=== PATIENT | female | born 1985 | race Caucasian/White ===

== ENCOUNTER → 2022-03-03 11:47 | Outpatient (CLI) | payer OTHER, SELFPAY ==
--- NOTE | ~2022-03-03 | MM_ITS ---
EXAMINATION: MM screening danny BI w ángel HISTORY: Screening mammogram TECHNIQUE: Craniocaudal and mediolateral oblique 3-D tomosynthesis images were obtained and synthetic 2-D images were generated. CAD analysis was submitted and interpreted. COMPARISON: No prior mammogram is available for comparison at this institution. BREAST PARENCHYMAL COMPOSITION: There are scattered areas of fibroglandular density. FINDINGS: There is no evidence of suspicious mass, calcification, or architectural distortion to sugg est malignancy in either breast. There has been no suspicious interval change. IMPRESSION: 1. No mammographic evidence of malignancy. 2. Recommend routine screening mammography in one year. BI-RADS Category 1: Negative Reviewed, dictated and finalized at location A.
== END ==
PROVIDERS: PCP Internal Medicine; Visit Provider Advanced Practice Midwife
DX: Z12.31 Encounter for screening mammogram for malignant neoplasm of breast (principal)
CPT/HCPCS: 77063; 77067

== ENCOUNTER 2022-09-19 11:39 | Emergency (ER) | payer OTHER, SELFPAY ==
[2022-09-19 11:45] VITALS: BP 115/62; PULSE 72; RESP 14; TEMP 36.6; O2SAT 100
--- NOTE | 2022-09-19 12:05 | ED.URI ---
HPI - URI/Sore Throat General Chief Complaint: Upper Respiratory Infection Stated Complaint: Ear Pain/Sore Throat History of Present Illness HPI Narrative: PATIENT PRESENTS WITH RIGHT EAR PAIN AND SORE THROAT. PATIENT HAS NOT BEEN EVALUATED AT URGENT CARE AND EMERGENCY ROOM AND DIAGNOSED WITH ALLERGIES. PATIENT STATES SHE HAS HAD SOME DRAINAGE FROM THE RIGHT EAR TODAY AND CONTINUES TO HAVE A SORE THROAT. PATIENT IS CURRENTLY ON A MEDROL DOSEPAK TAKE ZYRTEC AND USES FLONASE ON A DAILY FOR HER SYMPTOMS. Related Data Home Medications Medication Instructions Recorded Confirmed albuterol sulfate 90 mcg/actuation 2 puff inhalation Q4-6H PRN 09/19/22 09/19/22 aerosol inhaler Shortness Of Breath buspirone 7.5 mg tablet 7.5 mg PO BID 09/19/22 09/19/22 ivabradine 5 mg tablet (Corlanor) 5 mg PO TID 09/19/22 09/19/22 methylprednisolone 4 mg tablets in 4 mg PO DIRECTED 09/19/22 09/19/22 a dose pack triamcinolone acetonide 0.1 % 1 applic topical DAILY 09/19/22 09/19/22 topical cream Allergies Allergy/AdvReac Type Severity Reaction Status Date / Time cefaclor [From [facility]] Allergy Mild Hives Verified 09/19/22 12:05 Review of Systems Review of Systems: CONSTITUTIONAL: DENIES CHILLS, OR SWEATS. REPORTS FEVER AND GENERALIZED BODY ACHES EYES: DENIES VISUAL CHANGES, REDNESS, OR DISCHARGE. ENT: DENIES OTALGIA. REPORTS NASAL CONGESTION RUNNY NOSE AND SORE THROAT CARDIOVASCULAR: DENIES CHEST PAIN, PALPITATIONS, OR EDEMA. RESPIRATORY: DENIES DYSPNEA. REPORTS OCCASIONAL COUGH GASTROINTESTINAL: DENIES ABDOMINAL PAIN, NAUSEA, VOMITING, OR DIARRHEA. GENITOURINARY: DENIES DYSURIA OR HEMATURIA. SKIN: DENIES RASH OR ITCHING. MUSCULOSKELETAL: DENIES BACK PAIN, JOINT PAIN, OR MYALGIA. REPORTS GENERALIZED BODY ACHES NEUROLOGIC: DENIES HEADACHE, NUMBNESS, OR WEAKNESS. PSYCHIATRIC: DENIES ANXIETY OR DEPRESSION. CRITICAL ACCESS HOSPITAL Comments AT TIME OF SIGNATURE, AGREE WITH NURSING PAST MEDICAL, SURGICAL, SOCIAL AND FAMILY HISTORY. THERE IS NO RELEVANT FAMILY HISTORY PERTINENT TO THE PRESENTING COMPLAINT Exam Narrative: CONSTITUTIONAL: DENIES CHILLS, OR SWEATS. REPORTS FEVER AND GENERALIZED BODY ACHES EYES: DENIES VISUAL CHANGES, REDNESS, OR DISCHARGE. ENT: DENIES OTALGIA. REPORTS NASAL CONGESTION RUNNY NOSE AND SORE THROAT CARDIOVASCULAR: DENIES CHEST PAIN, PALPITATIONS, OR EDEMA. RESPIRATORY: DENIES DYSPNEA. REPORTS OCCASIONAL COUGH GASTROINTESTINAL: DENIES ABDOMINAL PAIN, NAUSEA, VOMITING, OR DIARRHEA. GENITOURINARY: DENIES DYSURIA OR HEMATURIA. SKIN: DENIES RASH OR ITCHING. MUSCULOSKELETAL: DENIES BACK PAIN, JOINT PAIN, OR MYALGIA. REPORTS GENERALIZED BODY ACHES NEUROLOGIC: DENIES HEADACHE, NUMBNESS, OR WEAKNESS. PSYCHIATRIC: DENIES ANXIETY OR DEPRESSION. HENMT: Ears: Abnormal EAC present EAC tenderness and otic discharge clear on the right Course Course Level of Care: Express Care Visit Vital Signs Vital signs: Vital Signs Temperature 36.6 C 09/19/22 11:45 Pulse Rate 72 09/19/22 11:45 Respiratory Rate 14 09/19/22 11:45 Blood Pressure 115/62 09/19/22 11:45 Pulse Oximetry 100 09/19/22 11:45 Oxygen Delivery Room Air 09/19/22 11:45 Temperature 36.6 C 09/19/22 11:45 Pulse Rate 72 09/19/22 11:45 Respiratory Rate 14 09/19/22 11:45 Blood Pressure 115/62 09/19/22 11:45 Pulse Oximetry 100 09/19/22 11:45 Oxygen Delivery Room Air 09/19/22 11:45 MDM - URI/Sore Throat Lab Data Labs: Strep Screen Presumptive Negative *(Reference Range: Negative)* Discharge Plan Discharge Clinical Impression: Upper respiratory infection, Otitis externa Patient Disposition: Home, Self-Care Condition: Stable Instructions: Antibiotic Form, Ofloxacin (Into the ear), Fluid In The Ear (Serous Otitis Media) (ED) Additional Instructions: FINISH MEDROL DOSEPAK PRESCRIBED FROM THE EMERGENCY ROOM CONTINUE ZYRTEC AND FLONASE DAILY USE EAR MARGO
== END 2022-09-19 12:12 | disposition home or self-care (01) ==
PROVIDERS: Emergency Provider Nurse Practitioner Family; PCP Internal Medicine
DX: J06.9 Acute upper respiratory infection, unspecified (principal); H60.91 Unspecified otitis externa, right ear; J45.909 Unspecified asthma, uncomplicated; F41.9 Anxiety disorder, unspecified
CPT/HCPCS: 87081; 87880; 99213; G0463

== ENCOUNTER 2023-05-10 11:11 | Day surgery (SDC) | payer SELFPAY ==
--- NOTE | 2023-05-10 07:24 | WPDANESEPPF ---
Anes - Initial Pre Proc Eval Procedure: Operation Date: 05/10/23 12:30 Proposed Procedures p Esophagogastroduodenoscopy - Kashmir Hassan MD s Colonoscopy - Kashmir Hassan MD Date/Time: 05/10/23 07:24 Surgeon: Kashmir Hassan MD Pre Op Diagnosis: FM HX Malignant Neoplasm of Digestive Organs Patient Data Age: 37 Gender: F Height: 1.7 m Weight: 103.419 kg Allergies Allergy/AdvReac Type Severity Reaction Status Date / Time cefaclor [From [facility]] Allergy Mild Hives Verified 04/20/23 13:41 Home Medications Medication Instructions Recorded Confirmed Type albuterol sulfate 90 mcg/actuation 2 puff inhalation Q4-6H PRN 09/19/22 05/10/23 History aerosol inhaler Shortness Of Breath buspirone 7.5 mg tablet 7.5 mg PO BID 09/19/22 05/10/23 History ivabradine 5 mg tablet (Corlanor) 5 mg PO TID 09/19/22 05/10/23 History triamcinolone acetonide 0.1 % 1 applic topical DAILY 09/19/22 05/10/23 History topical cream montelukast 10 mg tablet 10 mg PO DAILY 04/08/23 05/10/23 History (Singulair) cetirizine 10 mg tablet 10 mg PO BID PRN Allergic Symptoms 04/20/23 05/10/23 History famotidine 20 mg tablet (Pepcid) 20 mg PO BID 04/20/23 05/10/23 History fluticasone fur. 200 mcg-umeclid 1 inh inhalation DIRECTED 04/20/23 05/10/23 History 62.5 mcg-vilant 25 mcg inhalat.powder (Trelegy Ellipta) ubrogepant 100 mg tablet (Ubrelvy) 100 mg PO DIRECTED PRN Migraine 04/20/23 05/10/23 History Headache Patient hx anesthesia problems: none Family hx anesthesia problems: none Results Review: All pre-operative results and documents have been reviewed as part of the pre-operative evaluation. [facility] Past Medical History Medical History (Updated 04/08/23 @ 14:06 by Andree Yañez, MELVI) Asthma Chronic urticaria Dysphagia Family hx of colon cancer Obesity POTS (postural orthostatic tachycardia syndrome) Surgical History Surgical History (Updated 04/08/23 @ 13:59 by Linda Mccartney MA) H/O dilation and curettage Hx of prior ablation treatment Hx of tonsillectomy Social History Social History Smoking status: Never smoker Alcohol use details: very rare, 1 every 3 weeks Substance use type: does not use Spiritual care concerns: No Anes - Eval Final PreProcedure Day of Procedure 05/10/23 07:24 Patient weight: obese Heart: regular rate and rhythm Lungs: clear to auscultation Airway: Mallampati scale class II Neurological: alert and oriented Last oral intake: >/= 8 hours ASA classification: II Emergent: no Anesthetic plan: proceed Anesthesia type and monitoring: general GIVS and standard monitoring Results Review: All pre-operative results and documents have been reviewed as part of the pre-operative evaluation. Informed Consent: The patient's anesthetic plan and its attendant risks and benefits were discussed with the patient/family/POA. Questions were solicited and answers provided to the satisfaction of the patient/family/POA.
[2023-05-10 11:39] VITALS: BP 126/82; RESP 16; TEMP 37.1; O2SAT 99; BMI 34.7
--- NOTE | 2023-05-10 11:52 | PM.HPGS ---
History of Present Illness History of Present Illness Consent: Risks, benefits, and alternatives have been discussed and questions answered. Patient agrees to proceed with procedure. Chief complaint: FM HX Malignant Neoplasm of Digestive Organs Narrative: Ivana Fitzgerald is a 37 year old female with history of allergies on medications, few occasions had difficulty swallowing but she is not taking ppi and never had scopes (mother had colon cancer at 50) Review of Systems Constitutional: Constitutional: Denies headache(s) and Denies weakness Eyes: Eyes: Denies blurry vision ENT: Reports Normal hearing present, Denies headache(s) and Denies neck pain Cardiovascular: Cardiovascular: Denies chest pain and Denies dyspnea Respiratory: Respiratory: Denies dyspnea Gastrointestinal: Gastrointestinal: Reports no additional gastrointestinal complaints Genitourinary: Genitourinary: Denies dysuria Musculoskeletal: Musculoskeletal: Denies neck pain Integumentary/Breasts: Skin/Breast: Denies dry skin Neurologic: Reports Normal hearing present, Denies headache(s) and Denies weakness Psychiatric: Psychiatric: Denies anxiety Endocrine: Endocrine: Denies change in body appearance Hematologic/Lymphatic: Hematologic/Lymphatic: Denies easy bleeding Allergic/Immunologic: Allergic/Immunologic: Reports urticaria PMFSH Past Medical History Medical History (Updated 04/08/23 @ 14:06 by Andree Yañez APRN) Asthma Chronic urticaria Dysphagia Family hx of colon cancer Obesity POTS (postural orthostatic tachycardia syndrome) Surgical History Surgical History (Updated 04/08/23 @ 13:59 by Linda Mccartney MA) H/O dilation and curettage Hx of prior ablation treatment Hx of tonsillectomy Social History Social History Smoking status: Never smoker Alcohol use details: very rare, 1 every 3 weeks Substance use type: does not use Spiritual care concerns: No Meds Home Medications and Allergies Home Medications Medication Instructions Recorded Confirmed Type albuterol sulfate 90 mcg/actuation 2 puff inhalation Q4-6H PRN 09/19/22 04/20/23 History aerosol inhaler Shortness Of Breath buspirone 7.5 mg tablet 7.5 mg PO BID 09/19/22 04/20/23 History ivabradine 5 mg tablet (Corlanor) 5 mg PO TID 09/19/22 04/20/23 History triamcinolone acetonide 0.1 % 1 applic topical DAILY 09/19/22 04/20/23 History topical cream montelukast 10 mg tablet 10 mg PO DAILY 04/08/23 04/20/23 History (Singulair) cetirizine 10 mg tablet 10 mg PO BID PRN Allergic Symptoms 04/20/23 04/20/23 History famotidine 20 mg tablet (Pepcid) 20 mg PO BID 04/20/23 04/20/23 History fluticasone fur. 200 mcg-umeclid 1 inh inhalation DIRECTED 04/20/23 04/20/23 History 62.5 mcg-vilant 25 mcg inhalat.powder (Trelegy Ellipta) ubrogepant 100 mg tablet (Ubrelvy) 100 mg PO DIRECTED PRN Migraine 04/20/23 04/20/23 History Headache Allergies Allergy/AdvReac Type Severity Reaction Status Date / Time cefaclor [From [facility]] Allergy Mild Hives Verified 04/20/23 13:41 Vital Signs Vital Signs - 24 hr 05/10/23 11:39 Temperature 98.7 F Respiratory Rate 16 Blood Pressure 126/82 Pulse Oximetry 99 Oxygen Delivery Room Air Exam Const: General: comfortable and no acute distress HENMT: Face/Nose/Sinus: Normal nares present Eyes: General: appearance normal, both eyes and all related structures Neck: Neck: no JVD Resp: Auscultation: clear to auscultation bilaterally Cardio: Rate: regular rate Rhythm: regular rhythm GI: Inspection: non-distended GI Palp: Yes Soft to palpation Skin: General skin exam: normal color Neuro: General: gait normal Speech: normal speech Extrem: General: normal to inspection Psych: Mental Status: mental status grossly normal Assessment and Plan Assessment and plan (1) Dysphagia: Code(s): R13.10 - Dysphagia, unspecified Status: Acute Assessment and Plan: egd wit
[2023-05-10] MEDS: LACTATED RINGERS 1,000 ML 150 ML IV CONT (11:53)
[2023-05-10 12:27] VITALS: BP 101/64; PULSE 73; RESP 16; O2SAT 98
[2023-05-10 12:37] VITALS: BP 106/82; PULSE 75; RESP 16; O2SAT 100
[2023-05-10 12:47] VITALS: BP 111/72; PULSE 64; RESP 16; O2SAT 100
== END 2023-05-10 13:22 | disposition home or self-care (01) ==
PROVIDERS: PCP Internal Medicine; Visit Provider Internal Medicine Gastroenterology
PROC: 0DJ08ZZ Inspection of Upper Intestinal Tract, Via Natural or Artificial Opening Endoscopic (ICD-10-PCS; CPT 43235; principal; 2023-05-10 12:00)
PROC: 0DJD8ZZ Inspection of Lower Intestinal Tract, Via Natural or Artificial Opening Endoscopic (ICD-10-PCS; CPT 45378; 2023-05-10 12:00)
DX: Z80.0 Family history of malignant neoplasm of digestive organs (principal); R13.19 Other dysphagia
CPT/HCPCS: 45378; 43239

== ENCOUNTER 2023-05-11 10:47 | Outpatient (NON) | payer OTHER, SELFPAY | END 2023-05-11 10:48 | disposition home or self-care (01) | LOC: ANHLAB 10:48 | PROVIDERS: PCP Internal Medicine; Visit Provider Internal Medicine Gastroenterology | DX: K29.50 Unspecified chronic gastritis without bleeding (principal); K20.90 Esophagitis, unspecified without bleeding; Z80.0 Family history of malignant neoplasm of digestive organs | CPT/HCPCS: 88305 ==

== ENCOUNTER 2024-06-20 14:56 | Outpatient (CLI) | payer OTHER, SELFPAY ==
--- NOTE | ~2024-06-20 | MM_ITS ---
EXAMINATION: MM screening danny BI w ángel HISTORY: Screening mammogram TECHNIQUE: Craniocaudal and mediolateral oblique 3-D tomosynthesis images were obtained and synthetic 2-D images were generated. CAD analysis was submitted and interpreted. COMPARISON: 03/03/2022 BREAST PARENCHYMAL COMPOSITION:Not Dense. There are scattered areas of fibroglandular density. FINDINGS: No suspicious mass, calcification, or architectural distortion are identified in either sergey ast to suggest malignancy. There has been no suspicious interval change. IMPRESSION: No mammographic evidence of malignancy. Recommend routine screening mammography in one year. BI-RADS Category 1: Negative Reviewed, dictated and finalized at location . E PATCHER
== END 2024-06-20 14:57 | disposition home or self-care (01) ==
PROVIDERS: PCP Obstetrics & Gynecology; Visit Provider Obstetrics & Gynecology
DX: Z12.31 Encounter for screening mammogram for malignant neoplasm of breast (principal)
CPT/HCPCS: 77063; 77067

== ENCOUNTER 2024-09-25 15:32 | Emergency (ER) | payer OTHER, SELFPAY ==
--- NOTE | ~2024-09-25 | CT_ITS ---
EXAMINATION: CT abdomen pelvis w con DATE: 09/25/2024 17:47 INDICATION: abdominal pain, RUQ TECHNIQUE: Computed tomography (CT) of the abdomen and pelvis was performed with 100 mL Omnipaque-350 intravenous contrast. Automated exposure control and iterative reconstruction technique were employe d. The dose-length product was 1067.32 mGy-cm. COMPARISON: None. FINDINGS: Lower thorax: Unremarkable Liver: Normal. Biliary/Gallbladder: Gallbladder is normal. No bile duct dilation. Pancreas: No mass or duct dilation. Spleen: Normal. Adrenals:No mass. Kidneys: No suspicious mass, obstructing stone, or hydronephrosis. GI tract: No small or large bowel dilation. Uniform bowel wall enhancement. Mild ileal mucosal hypere go and mild distal ileal wall edema. Mild scattered areas of colonic wall edema. Normal appendix. Mesentery/Peritoneum: No ascites, mass, or free air. Retroperitoneum: No mass. Pelvis: Pelvic organs are within normal limits. Soft Tissues: Soft tissues and body wall unremarkable. Bones: No acute osseous finding. IMPRESSION: Mild ileitis and colitis. Reviewed, dictated and finalized at location K. IMPRESSION: Mild ileitis and colitis.
[2024-09-25 16:06] VITALS: BP 129/90; PULSE 102; RESP 18; TEMP 36.6; O2SAT 99
--- NOTE | 2024-09-25 16:10 | ECG_ITS ---
Test Date: 2024-09-25 16:59:53 Measurements Intervals Neal Rate: 93 P: 66 IL: 141 QRS: 76 QRSD: 94 T: 44 QT: 348 QTc: 433 Interpretive Statements SINUS RHYTHM WITH SINUS ARRHYTHMIA INCOMPLETE RIGHT BUNDLE BRANCH BLOCK BASELINE ARTIFACT- I, II, III, AVR, AVL BORDERLINE ECG No previous ECG available for comparison Electronically Signed On 09-25-2024 19:28:34 CDT by Nitesh Kemp D.O.
--- NOTE | 2024-09-25 16:11 | ED_ITS ---
HPI - Nausea/Vomiting/Diarrhea General Chief complaint: Nausea/Vomiting/Diarrhea <Vale Young ORIGINATION SPECIALIST - Last Filed: 09/25/24 16:14> Stated complaint: Has HOWELL-Cramps, N/D-chills <Vale Young ORIGINATION SPECIALIST - Last Filed: 09/25/24 16:14> Time Seen by Provider: 09/25/24 16:05 <Vale Young ORIGINATION SPECIALIST - Last Filed: 09/25/24 16:14> Focused HPI: Patient is 38-year-old female who presents to the ER with complaints of abdominal pain that started yesterday. She reports she has a history of gall bladder attacks and feels is the this episode is similar. Patient describes her abdomen as ?twisting and cramping. She endorses a history anxiety, asthma, seasonal allergies and POTS. Pt endorses significant nausea and vomiting, along with decreased p.o. intake and diarrhea. She denies any urinary symptoms and recent fevers. GENERAL: Well-appearing, well-nourished, and in no acute distress. HEAD: Normocephalic, atraumatic. CHEST: Clear to auscultation. ?No respiratory distress. HEART: Regular rate and rhythm.? NEURO: ?Alert and oriented x3. ABD: Negative Dang's sign, + BS, nontender with palpation Patient screened in triage and initial orders placed.? ?Additional care and disposition to be based upon?diagnostic testing and treatment. <Vale Young APRN - Last Filed: 09/25/24 16:14> Source: patient <Chava Leo PA-C - Last Filed: 09/26/24 02:07> Mode of arrival: ambulatory <Chava Leo PA-C - Last Filed: 09/26/24 02:07> Limitations: no limitations <Chava Leo PA-C - Last Filed: 09/26/24 02:07> History of Present Illness HPI Narrative: Agree with MSE note. Denies GI bleeding symptoms. <Chava Leo PA-C - Last Filed: 09/26/24 02:07> Related Data Home medications: Home Medications ?Medication ?Instructions ?Recorded ?Confirmed ?Last Taken ?Type albuterol sulfate 90 mcg/actuation 2 puff inhalation Q4-6H PRN 09/19/22 09/25/24 04/17/23 History aerosol inhaler Shortness Of Breath buspirone 7.5 mg tablet 15 mg PO BID 09/19/22 09/25/24 04/20/23 History ivabradine 5 mg tablet (Corlanor) 5 mg PO TID 09/19/22 09/25/24 04/20/23 History triamcinolone acetonide 0.1 % 1 applic topical DAILY 09/19/22 09/25/24 Unknown History topical cream montelukast 10 mg tablet 10 mg PO DAILY 04/08/23 09/25/24 Unknown History (Singulair) cetirizine 10 mg tablet 10 mg PO BID PRN Allergic Symptoms 04/20/23 09/25/24 04/20/23 History famotidine 20 mg tablet (Pepcid) 20 mg PO BID 04/20/23 09/25/24 04/20/23 History fluticasone fur. 200 mcg-umeclid 1 inh inhalation DIRECTED 04/20/23 09/25/24 04/20/23 History 62.5 mcg-vilant 25 mcg inhalat.powder (Trelegy Ellipta) ubrogepant 100 mg tablet (Ubrelvy) 100 mg PO DIRECTED PRN Migraine 04/20/23 09/25/24 Unknown History Headache olopatadine 0.6 % nasal spray 2 spray intranasal BID PRN Allergy 09/25/24 09/25/24 Unknown History omalizumab 150 mg/mL subcutaneous 150 mg subcut MONTHLY 09/25/24 09/25/24 Unknown History syringe (Xolair) <Vale Young, MELVI - Last Filed: 09/25/24 16:14> Allergies/Adverse reactions: Allergies Allergy/AdvReac Type Severity Reaction Status Date / Time cefaclor (From [facility]) Allergy Mild Hives Verified 09/25/24 17:51 <Vale Young APRN - Last Filed: 09/25/24 16:14> Review of Systems 2 Review of Systems: All systems as dictated in HPI <Chava Leo PA-C - Last Filed: 09/26/24 02:07> PMFSH Past Medical History Medical History: Medical History (Updated 09/26/24 @ 00:22 by Shahnaz Blanca) Asthma POTS (postural orthostatic tachycardia syndrome) Chronic urticaria Obesity Family hx of colon cancer Dysphagia <Vale Young APRN - Last Filed: 09/25/24 16:14> Surgical History Surgical History: Surgical History (Updated 04/08/23 @ 13:59 by Linda Mccartney MA) Hx of tonsillectomy H/O dilation and curettage Hx of prior ablation treatment <Vale Young, ORIGINATION SPECIALIST - Last Filed: 09/25/24 16:14> Social History Social History: Social History Smoking status: Never smoker Alcohol use details: very rare, 1 every 3 weeks Substance use type: does not use Spiritual care concerns: No <Vale Young, ORIGINATION SPECIALIST - Last Filed: 09/25/24 16:14> Exam 2 Narrative: GENERAL: Well-appearing, well-nourished, and in no acute distress. HEAD: Normocephalic, atraumatic. EYES: PERRLA and EOMI. ENT: Nares clear, no rhinorrhea or epistaxis. Mucous membranes moist. Oropharynx without tonsillar hypertrophy exudate or other lesions. NECK: Supple. No adenopathy or masses. CHEST: No respiratory distress. Clear to auscultation. No wheezes rales or rhonchi HEART: Regular rate and rhythm. No murmur heard. Normal peripheral pulses. ABDOMEN: Soft, nontender, nondistended, normal active bowel sounds. MSK: Normal range of motion. No edema. SKIN: Warm, dry, no rash. NEURO: Alert and oriented x4. No focal deficits. PSYCH: Normal mood and affect. <Chava Leo PA-C - Last Filed: 09/26/24 02:07> Course Vital Signs Vital signs: Vital Signs Temperature 97.8 F 09/25/24 16:06 Pulse Rate 102 H 09/25/24 16:06 Respiratory Rate 18 09/25/24 16:06 Blood Pressure 129/90 09/25/24 16:06 Pulse Oximetry 99 09/25/24 16:06 Oxygen Delivery Room Air 09/25/24 16:06 Temperature 97.8 F 09/25/24 16:06 Pulse Rate 79 09/25/24 19:27 Respiratory Rate 15 09/25/24 19:27 Blood Pressure 119/85 09/25/24 19:27 Pulse Oximetry 99 09/25/24 19:27 Oxygen Delivery Room Air 09/25/24 16:06 <Vale Young APRN - Last Filed: 09/25/24 16:14> Vital Signs Temperature 97.8 F 09/25/24 16:06 Pulse Rate 102 H 09/25/24 16:06 Respiratory Rate 18 09/25/24 16:06 Blood Pressure 129/90 09/25/24 16:06 Pulse Oximetry 99 09/25/24 16:06 Oxygen Delivery Room Air 09/25/24 16:06 Temperature 97.8 F 09/25/24 16:06 Pulse Rate 79 09/25/24 19:27 Respiratory Rate 15 09/25/24 19:27 Blood Pressure 119/85 09/25/24 19:27 Pulse Oximetry 99 09/25/24 19:27 Oxygen Delivery Room Air 09/25/24 16:06 <Chava Leo PA-C - Last Filed: 09/26/24 02:07> MDM - Nausea/Vomiting/Diarrhea MDM Narrative Medical decision making narrative: This is a 38-year-old female who presents to the ED for chief complaint of abdominal pain, N/V. Vitals are normal. Exam remarkable for the above. No focal abdominal tenderness. Lab work coming back remarkable for mildly elevated white count of 7 point to. CMP unremarkable. Troponin negative. Urinalysis questionable for infection with 1+ leuk esterase and 11-20 white blood cells, however may be contaminated with squamous. Urine culture pending. CT abdomen pelvis with IV contrast: IMPRESSION: Mild ileitis and colitis. Presentation likely consistent with colitis. She has no GI bleeding symptoms to suggest acute IBD. Due to the patient having mildly elevated white count and possible concurrent UTI, will prescribe Augmentin for antibiotic coverage of infectious colitis. She was given fluids, Toradol, Reglan with relief of symptoms. First dose of Augmentin p.o. given here. She is tolerating p.o. well. Patient will be discharged in stable condition. Supportive measures discussed and return precautions given. Patient is understanding and agreeable with plan for discharge with PCP follow-up. <Chava Leo PA-C - Last Filed: 09/26/24 02:07> Lab Data Result diagrams: 09/25/24 16:54 09/25/24 16:54 <Vale Young APRN - Last Filed: 09/25/24 16:14> Labs: Lab Results 09/25/24 09/25/24 Range/Units 16:54 17:05 WBC 10.2 H (4.5-10.0) K/mm3 RBC 5.10 (4.2-5.4) M/mm3 Hgb 15.1 H (12.0-15.0) g/dL Hct 47.0 (37.0-47.0) % MCV 92.2 (80-100) fl MCH 29.6 (26-34) pg MCHC 32.1 (32-36) g/dl RDW 13.0 (11.5-14.5) % Plt Count 357 (150-375) k/mm3 MPV 9.3 (7.4-10.4) fl Immature Gran % (Auto) 0.2 (0-0.5) % Neut % (Auto) 77.7 H (45.5-73.1) % Lymph % (Auto) 14.4 L (18.3-44.2) % [place] % (Auto) 5.9 (2.6-8.5) % Eos % (Auto) 1.4 (0-4.4) % Baso % (Auto) 0.4 (0.2-1.2) % Lymph # (Auto) 1.47 (0.9-3.2) K/mm3 [place] # (Auto) 0.6 (0.1-0.6) K/mm3 Eos # (Auto) 0.1 (0-0.3) K/mm3 Baso # (Auto) 0.0 (0.0-0.1) K/mm3 Abs Immat Gran (auto) 0.02 (0.00-0.031) K/mm3 Absolute Neuts (auto) 7.9 H (1.3-6.7) K/mm3 Absolute Nucleated RBC 0.000 (0.0-0.012) K/mm3 Nucleated RBC % 0.0 (0.0-0.2) % Sodium 141 (137-145) mmol/L Potassium 3.7 (3.4-5.0) mmol/L Chloride 104 (98-107) mmol/L Carbon Dioxide 26 (22-30) mmol/L Anion Gap 11 (4-12) mmol/L BUN 11 (7-17) mg/dL Creatinine 0.69 L (0.7-1.0) mg/dL Estim Creat Clear Calc 116 ml/min Estimated GFR > 60 (59 - ) Glucose 86 (65-110) mg/dL Calcium 9.2 (8.4-10.2) mg/dL Total Bilirubin 0.6 (0.2-1.3) mg/dL AST 22 (14-36) U/L ALT 22 (6-35) U/L Alkaline Phosphatase 68 (38-126) U/L Troponin I < 0.012 (0.000-0.034) ng/mL Total Protein 8.0 (6.3-8.2) g/dL Albumin 4.6 (3.5-5.1) g/dL Lipase 73 (23-300) U/L Urine Color Yellow (Yellow) Urine Appearance Clear (Clear) Urine pH 5.5 (5.0-9.0) Ur Specific [place] 1.024 (1.001-1.035) Urine Protein Trace (Negative) mg/dL Urine Glucose (UA) Negative (Negative) mg/dL Urine Ketones 1+ H (Negative) mg/dL Ur Blood (Man) 3+ H (Negative) Urine Nitrate Negative (Negative) Urine Bilirubin Negative (Negative) Urine Urobilinogen 0.2 (<2.0) mg/dL Leukocyte Esterase Rfl 1+ H (Negative) GAL/UL Urine RBC 11-20 H (0-2) /hpf Urine WBC 11-20 H (0-3) /hpf Ur Squamous Epith Cells Moderate (Few) /hpf Urine Bacteria 1+ H /hpf Urine Casts 0-2 POC Urine HCG, Qual Negative (Negative) Urine Opiates Screen Negative (Negative) Urine Methadone Screen Negative (Negative) Ur Barbiturates Screen Negative (Negative) Ur Phencyclidine Scrn Negative (Negative) Ur Amphetamine Screen Negative (Negative) U Benzodiazepines Scrn Negative (Negative) Urine Cocaine Screen Negative (Negative) U Cannabinoids Screen Negative (Negative) <Vale Young, ORIGINATION SPECIALIST - Last Filed: 09/25/24 16:14> Lab Results 09/25/24 09/25/24 Range/Units 16:54 17:05 WBC 10.2 H (4.5-10.0) K/mm3 RBC 5.10 (4.2-5.4) M/mm3 Hgb 15.1 H (12.0-15.0) g/dL Hct 47.0 (37.0-47.0) % MCV 92.2 (80-100) fl MCH 29.6 (26-34) pg MCHC 32.1 (32-36) g/dl RDW 13.0 (11.5-14.5) % Plt Count 357 (150-375) k/mm3 MPV 9.3 (7.4-10.4) fl Immature Gran % (Auto) 0.2 (0-0.5) % Neut % (Auto) 77.7 H (45.5-73.1) % Lymph % (Auto) 14.4 L (18.3-44.2) % [place] % (Auto) 5.9 (2.6-8.5) % Eos % (Auto) 1.4 (0-4.4) % Baso % (Auto) 0.4 (0.2-1.2) % Lymph # (Auto) 1.47 (0.9-3.2) K/mm3 [place] # (Auto) 0.6 (0.1-0.6) K/mm3 Eos # (Auto) 0.1 (0-0.3) K/mm3 Baso # (Auto) 0.0 (0.0-0.1) K/mm3 Abs Immat Gran (auto) 0.02 (0.00-0.031) K/mm3 Absolute Neuts (auto) 7.9 H (1.3-6.7) K/mm3 Absolute Nucleated RBC 0.000 (0.0-0.012) K/mm3 Nucleated RBC % 0.0 (0.0-0.2) % Sodium 141 (137-145) mmol/L Potassium 3.7 (3.4-5.0) mmol/L Chloride 104 (98-107) mmol/L Carbon Dioxide 26 (22-30) mmol/L Anion Gap 11 (4-12) mmol/L BUN 11 (7-17) mg/dL Creatinine 0.69 L (0.7-1.0) mg/dL Estim Creat Clear Calc 116 ml/min Estimated GFR > 60 (59 - ) Glucose 86 (65-110) mg/dL Calcium 9.2 (8.4-10.2) mg/dL Total Bilirubin 0.6 (0.2-1.3) mg/dL AST 22 (14-36) U/L ALT 22 (6-35) U/L Alkaline Phosphatase 68 (38-126) U/L Troponin I < 0.012 (0.000-0.034) ng/mL Total Protein 8.0 (6.3-8.2) g/dL Albumin 4.6 (3.5-5.1) g/dL Lipase 73 (23-300) U/L Urine Color Yellow (Yellow) Urine Appearance Clear (Clear) Urine pH 5.5 (5.0-9.0) Ur Specific [place] 1.024 (1.001-1.035) Urine Protein Trace (Negative) mg/dL Urine Glucose (UA) Negative (Negative) mg/dL Urine Ketones 1+ H (Negative) mg/dL Ur Blood (Man) 3+ H (Negative) Urine Nitrate Negative (Negative) Urine Bilirubin Negative (Negative) Urine Urobilinogen 0.2 (<2.0) mg/dL Leukocyte Esterase Rfl 1+ H (Negative) GAL/UL Urine RBC 11-20 H (0-2) /hpf Urine WBC 11-20 H (0-3) /hpf Ur Squamous Epith Cells Moderate (Few) /hpf Urine Bacteria 1+ H /hpf Urine Casts 0-2 POC Urine HCG, Qual Negative (Negative) Urine Opiates Screen Negative (Negative) Urine Methadone Screen Negative (Negative) Ur Barbiturates Screen Negative (Negative) Ur Phencyclidine Scrn Negative (Negative) Ur Amphetamine Screen Negative (Negative) U Benzodiazepines Scrn Negative (Negative) Urine Cocaine Screen Negative (Negative) U Cannabinoids Screen Negative (Negative) <Chava Leo PA-C - Last Filed: 09/26/24 02:07> Discharge Plan Discharge Clinical Impression: Colitis, Abnormal finding on urinalysis <Vale Young APRN - Last Filed: 09/25/24 16:14> Patient Disposition: Home <Vale Young APRN - Last Filed: 09/25/24 16:14> Condition: Stable <Vale Young APRN - Last Filed: 09/25/24 16:14> Instructions: Antibiotic Form, Colitis (ED) <Vale Young APRN - Last Filed: 09/25/24 16:14> Additional Instructions: Your exam today shows colitis and possible UTI. Please take antibiotics as prescribed and follow-up closely with your PCP. If you have any new or worsening symptoms please return to the ER for further evaluation. <Vale Young APRN - Last Filed: 09/25/24 16:14> Patient Language: [place] <Vale Young APRN - Last Filed: 09/25/24 16:14> Prescriptions: New amoxicillin-pot clavulanate 875-125 mg tablet 1 tablet PO Q12H Qty: 14 0RF No Action triamcinolone acetonide 0.1 % cream 1 applic TOPICAL DAILY ivabradine [Corlanor] 5 mg tablet 5 mg PO TID buspirone 7.5 mg tablet 15 mg PO BID albuterol sulfate 90 mcg/actuation HFA aerosol inhaler 2 puff INHALATION Q4-6H PRN (Reason: Shortness Of Breath) montelukast [Singulair] 10 mg tablet 10 mg PO DAILY olopatadine 0.6 % spray,non-aerosol 2 spray INTRANASAL BID PRN (Reason: Allergy) Xolair 150 mg/mL syringe 150 mg SUBCUT MONTHLY cetirizine 10 mg tablet 10 mg PO BID PRN (Reason: Allergic Symptoms) Ubrelvy 100 mg tablet 100 mg PO DIRECTED PRN (Reason: Migraine Headache) Trelegy Ellipta 200-62.5-25 mcg blister with device 1 inh INHALATION DIRECTED famotidine [Pepcid] 20 mg Tablet 20 mg PO BID <Vale Young APRN - Last Filed: 09/25/24 16:14> Follow-up/Referrals: Reji De La Cruz MD [Primary Care Provider] - <Vale Young APRN - Last Filed: 09/25/24 16:14> Stand Alone Forms: Work/School Release IP <Vale Young APRN - Last Filed: 09/25/24 16:14> Time of Disposition: 20:38 <Vale Young APRN - Last Filed: 09/25/24 16:14> 20:38 <Chava Leo PA-C - Last Filed: 09/26/24 02:07>
[2024-09-25 17:07] LABS: Basophils Percent Auto 0.4 % (0.2-1.2); Eosinophils Absolute Auto 0.1 K/mm3 (0-0.3); Eosinophils Percent Auto 1.4 % (0-4.4); Hemoglobin 15.1 g/dL (12.0-15.0); Immature Granulocyte Absolute 0.02 K/mm3 (0.00-0.031); Immature Granulocyte Percent A 0.2 % (0-0.5); Lymphocytes Absolute Auto 1.47 K/mm3 (0.9-3.2); Lymphocytes Percent Auto 14.4 % (18.3-44.2); Mean Corpuscular HGB Conc 32.1 g/dl (32-36); Mean Corpuscular Hemoglobin 29.6 pg (26-34); Mean Corpuscular Volume 92.2 fl (80-100); Mean Platelet Volume 9.3 fl (7.4-10.4); Monocytes Absolute Auto 0.6 K/mm3 (0.1-0.6); Monocytes Percent Auto 5.9 % (2.6-8.5); Neutrophils Absolute Auto 7.9 K/mm3 (1.3-6.7); Neutrophils Percent Auto 77.7 % (45.5-73.1); Platelet Count Result 357 k/mm3 (150-375); White Blood Count 10.2 K/mm3 (4.5-10.0)
[2024-09-25 17:08] LABS: BEDSIDEPREGUCG Negative (Negative)
[2024-09-25 17:14] LABS: Add Urine Microscopic? YES; Appearance Urine Clear (Clear); Bacteria Urine 1+ /hpf; Bilirubin Urine Negative (Negative); Blood Urine 3+ (Negative); Color Urine Yellow (Yellow); Glucose Urine UA Negative (Negative); Ketones Urine 1+ mg/dL (Negative); Leukocyte Esterase Ur 1+ LEU/UL (Negative); Nitrate Urine Negative (Negative); Non Pathogenic Casts 0-2; Protein Urine Trace mg/dL (Negative); Specific Grav Ur 1.024 (1.001-1.035); Squamous Epithelial Cell Urine Moderate /hpf (Few); Urobilinogen Urine 0.2 mg/dL (<2.0); pH Urine 5.5 (5.0-9.0)
[2024-09-25 17:17] LABS: Alanine Aminotransferase 22 U/L (6-35); Albumin Level 4.6 g/dL (3.5-5.1); Alkaline Phosphatase 68 U/L (38-126); Anion Gap 11 mmol/L (4-12); Aspartate Amino Transferase 22 U/L (14-36); Bilirubin,Total 0.6 mg/dL (0.2-1.3); Blood Urea Nitrogen 11 mg/dL (7-17); Calcium 9.2 mg/dL (8.4-10.2); Carbon Dioxide 26 mmol/L (22-30); Chloride 104 mmol/L (98-107); Estimated CRCL calculation 116 ml/min; Estimated Glomerular Filt Rate > 60; Glucose 86 mg/dL (65-110); Lipase 73 U/L (23-300); Potassium 3.7 mmol/L (3.4-5.0); Sodium 141 mmol/L (137-145)
[2024-09-25 17:28] LABS: Amphetamine Screen Urine Negative (Negative); Barbiturate Screen Urine Negative (Negative); Benzodiazepines Screen Urine Negative (Negative); Cannabinoid Screen Urine Negative (Negative); Cocaine Screen Urine Negative (Negative); Methadone Screen Urine Negative (Negative); Opiate Screen Urine Negative (Negative); Phencyclidine Screen Urine Negative (Negative); Troponin I < 0.012 ng/mL (0.000-0.034)
--- OUTSIDE RECORDS SUMMARY | 2024-09-25 17:28 | XMS_ITS ---
Author Organization [facility] [place] ([id number]) Address [address] [place] [address] Care Team Providers Care Master Sheet Clerk Name Role Phone Fabian Anderson Primary Care Provider UnavailVannessa Cope Unavailable [phone] Jackie Neal Unavailable Unavailable Eulalio Nunez Unavailable [phone] REASON FOR VISIT SCIT (Aeroallergen) Encounters Encounter Location Date Provider Diagnosis [facility] [address] [place] [address] 09/21/2024 Eulalio Nunez Plan Of Treatment Next Appt Details Provider Name:Eulalio Nunez , 09/28/2024 04:00:00 PM, [address], [place], [address], Provider Name:Eulalio Nunez , 10/02/2024 04:10:00 PM, [address], [address], [place], [address], Progress Notes * Ivana FITZGERALDDOB:1985 ( 38 yo F)Acc No.[id number]:09/21/2024 SCIT-Aeroallergen Patient: Ivana MONDRAGON Provider: Alex Nunez MD :1985 A ge:38 Y S ex:Female Date:09/21/2024 Address:[address] [place], [place] [id number] Pcp:Fabian Anderson Subjective: * Chief Complaints: * 1 . SCIT (Aeroallergen). * Medical History: Objective: * Vitals: Assessment: Plan: * Treatment: * Billing Information: * Visit Code: * Procedure Codes: * Electronic signature of Patnayely Nunez MD, FAAAAI on 09/25/2024 at 05:28 PM CDT Sign off status: Pending * Provider: Alex Nunez MD Date: 0 09/21/2024 Generated for Michaeli rosina/Black/Rafaelitting on: 09/25/2024 05:28 PM CDT
--- OUTSIDE RECORDS SUMMARY | 2024-09-25 17:28 | XMS_ITS | Clinical Summary ---
Author Organization [facility] Address [address] [place] [address] Care Team Providers Care Roll Coating Machine Operator Name Role Phone Jackie Neal MD Primary Care Provider [phone] Mike Hollingsworth MD Unavailable [phone] Source Comments [facility],non-owned Affiliates and Associated Physician Practices is amultiple site organization consisting of ambulatory clinics and hospital sitesin [place], [place], [place] and [place]. This disclosure is being madepursuant to the Care Everywhere program and may not contain all information available regarding this patient. Last updated 18.[facility] Allergies Active Allergy Reactions Criticality Noted Date Comments Cefaclor Urticaria Medium 07/23/2016 Medications * Be aware that medications may not be up to date on this document. Alwaysverify current medications with the patient. Loperamide (IMODIUM) 2 MG tablet Take 1 (one) tablet by mouth 4 times daily as needed for Diarrhea 20 tablet 06/12/19 22 Active busPIRone (BUSPAR) 5 MG tablet Take 1.5 (one and one-half) tablets by mouth 2 times daily 08/30/19 22 Active cetirizine (ZYRTEC ALLERGY) 10 MG gel capsule Take 1 (one) capsule by mouth 2 times daily Active fluticasone-ume clidin-vilant (Trelegy Ellipta) 200-62.5-25 MCG/ACT inhaler Inhale 1 (one) puff by mouth once daily Active famotidine (Pepcid) 40 MG tablet Take 1 (one) tablet by mouth 2 times daily Active EPINEPHrine (Epipen) 0.3 MG/0.3ML auto-injector pen Inject 0.3 mL into muscle once Active ubrogepant (Ubrelvy) 100 MG tablet Take 1 (one) tablet by mouth daily as needed - may repeat one time for Migraine No more than 2 doses in 24 hours. Active albuterol HFA (Proventil; Ventolin; Proair) 108 (90 Base) MCG/ACT inhaler INHALE 2 PUFFS BY MOUTH EVERY 4 TO 6 HOURS NEEDED FOR SHORTNESS OF BREATH 06/30/19 23 Active Omalizumab (XOLAIR SC) Inject subcutaneously every 30 days Active ivabradine (Corlanor) 5 MG tabletIndicatio ns:Inappropriat e sinus tachycardia (HCC),POTS (postural orthostatic tachycardia syndrome) Take 1 (one) tablet by mouth 2 times daily with morning and evening meal (Take extra 1/2 tablet PRN for palpitations). 180 tablet 3 03/09/20 23 Active Active Problems Problem Noted Date Diagnosed Date Primary fibromyalgia syndrome 03/09/2023 Overview (03/09/2023): Chronic fatigue and musculoskeletal pain with exam findings of allodynia. Could discuss symptomatic Rx options with PCP (eg. duloxetine). Inappropriate sinus tachycardia 02/22/2023 Asthma 01/21/2022 02/22/2023 POTS (postural orthostatic tachycardia syndrome) 11/19/2011 Family History Medical History Relation Name Comments Cancer - Rectal Mother Crohn's Disease Mother Relation Name Status Comments Mother Social History Tobacco Use Types Packs/Day Years Used Date Smoking Tobacco: Never Smokeless Tobacco: Never Tobacco Cessation:Counseling Given: Not Answered PHQ-2 Answer Date Recorded Patient Health Questionnaire-2 Score 0 02/22/2023 Comments No Sex and Gender Information Value Date Recorded Sex Assigned at Not on file Legal Sex Female 10:23 AM CDT Gender Identity Not on file Sexual Orientation Not on file Last Filed Vital Signs Vital Sign Reading Time Taken Comments Blood Pressure 104/60 03/09/2023 8:59 AM CDT Pulse 64 03/09/2023 8:59 AM CDT Temperature 36.7 C (98 F) 03/09/2023 8:59 AM CDT Respiratory Rate 16 03/09/2023 8:59 AM CDT Oxygen Saturation 99% 03/09/2023 8:59 AM CDT Inhaled Oxygen Concentration - - Weight 101.6 kg (224 lb) 03/09/2023 8:59 AM CDT Height 170.2 cm (5' 7 ) 03/09/2023 8:59 AM CDT Body Mass Index 35.08 03/09/2023 8:59 AM CDT Plan of Treatment Health Maintenance Due Date Last Done Comments LIPID TESTING 1985 MAMMOGRAM 1985 HIV SCREENING 12/18/1998 HEPATITIS C SCREENING 12/14/2001 DTAP/TDAP/TD VACCINES (1 - Tdap) 12/18/2002 HEPATITIS B VACCINE (1 of 3 - 19+ 3-dose series) 12/18/2002 PNEUMOCOCCAL VACCINE (1 of 2 - PCV) 12/18/2002 COVID-19 VACCINE (1 - season) 2024 DEPRESSION SCREENING 06/07/2024 02/22/2023, 11/27/19 22 PAP SMEAR 10/09/2024 10/09/2021, 06/08, 09/05/2020 INFLUENZA VACCINE (Season Ended) 2025 03/06/2021, 03/06/2020, 03/06/2019, Additional history exists ZOSTER VACCINE (1 of 2) 12/18/2033 HIB VACCINE Aged Out No longer eligi ble based on patient's age to complete this topic HPV VACCINE Aged Out No longer eligi ble based on patient's age to complete this topic MENINGOCOCCAL (Group B) VACCINE SHARED DECISION-MAKING Aged Out No longer eligible based on patient's age to complete this topic MENINGOCOCCAL GROUPS A/C/Y/W VACCINE Aged Out No longer eligible based on patient's age to complete this topic Insurance [employer] [address] [place] [address] SELF PAY NO INSURANCE Member Subscriber Plan / Payer (Ef fective for All Dates) Name:Isaac Fitzgerald Member ID:Not on file Relation to Subscriber:Not on file Name:ISAAC FITZGERALD Subscriber ID:Not on file Address: [address] [place] [address] Payer ID:Not on file Group ID:Not on file Type:Self Pay Address: [place], [place] Care Teams Roll Coating Machine Operator Relationship Specialty Start Date End Date Jackie Neal [place] [address] PCP - General Internal Medicine 05/19/21 Mike Hollingsworth MD [address] [facility] [place] [address] Watermelon Inspector Electrophysiology 05/19/21
--- OUTSIDE RECORDS SUMMARY | 2024-09-25 17:28 | XMS_ITS | Clinical Summary ---
Author Organization [facility] Address [address] [place] [address] Care Team Providers Care Basket Sorter Name Role Phone Fabian Anderson MD Primary Care Provider [phone] Allergies Active Allergy Reactions Criticality Noted Date Comments Cefaclor Rash,Shortness of Breath,Hives High 01/10 Medications ipratropium (ATROVENT) 0.06 % nasal spray 4 Active Olopatadine HCl 0.6 % Solution every 12 hours 4 Active omalizumab (XOLAIR) 150 MG injection Inject 1.2 mLs (150 mg total) into the skin once. Active ivabradine (CORLANOR) 5 MG tablet Take 1 tablet (5 mg total) by mouth 2 (two) times daily with meals. Active cetirizine (ZYRTEC) 10 MG tablet Take 1 tablet (10 mg total) by mouth 2 (two) times daily. Active famotidine (PEPCID) 20 MG tablet Take 1 tablet (20 mg total) by mouth 2 (two) times daily. Active montelukast (SINGULAIR) 10 MG tablet Take 1 tablet (10 mg total) by mouth nightly at bedtime. Active fluticasone propionate (FLONASE) 50 MCG/ACT nasal spray Active Fluticasone-Umecli din-Vilant (TRELEGY ELLIPTA) 100-62.5-25 MCG/ACT AEROSOL POWDER, BREATH ACTIVATED Active ubrogepant (UBRELVY) 100 MG tabletIndications: Intractable migraine with aura with status migrainosus Take 1 tablet (100 mg total) by mouth 2 (two) times daily as needed. 16 tablet 3 5 Active albuterol sulfate HFA 108 (90 Base) MCG/ACT inhaler 2-4 puff(s) with spacer inhaled QID, PRN per asthma action plan for 30 days Active busPIRone (BUSPAR) 15 MG tabletIndications: LAINA (generalized anxiety disorder) Take 1 tablet (15 mg total) by mouth 3 (three) times daily. 270 tablet 1 5 Active ondansetron (ZOFRAN) 4 MG tabletIndications: Nausea Take 1 tablet (4 mg total) by mouth every 8 (eight) hours as needed. 20 tablet 5 Active ondansetron (ZOFRAN-ODT) 4 MG disintegrating tabletIndications: Nausea Take 1 tablet (4 mg total) by mouth every 6 (six) hours as needed for Nausea. 30 tablet 2 5 08/29/19 25 Discontin ued(Alter narayan therapy) Active Problems Problem Noted Date Diagnosed Date Chronic fatigue and immune dysfunction syndrome ([facility]/HCC) 07/17/2024 Eczema 07/17/2024 Plantar fasciitis 07/17/2024 Postural orthostatic tachycardia syndrome (POTS) 07/17/2024 Overview (07/17/2024): Onset 2002 Trigger finger 07/17/2024 Primary fibromyalgia syndrome 03/09/2023 Overview (07/17/2024): Chronic fatigue and musculoskeletal pain with exam findings of allodynia. Could discuss symptomatic Rx options with PCP (eg. duloxetine). Inappropriate sinus tachycardia ([facility]) 2022 Asthma ([facility]) 01/21/2022 Overview (07/17/2024): All my life Encounters Date Type Department Care Team Description 09/25/2024 Telephone [facility] Medical [facility] [place] [address] [place] [address] Fabian Anderson MD Appointment Request 08/28/2024 Telephone [facility] [place] [address] [place] [address] Fabian Anderson MD Medication 08/28/2024 Travel 08/17/2024 MyChart Message Enc [place] [address] [address] [place] [address] Fabian Anderson MD Buspirone side effects with increased dose 08/14/2024 4:20 PM CDT Office Visit [place] [address] [address] [place] [address] Fabian Anderson MD Follow Up; Sleep Problem; Fatigue; Anxiety 08/14/2024 Travel 07/24/2024 7:30 AM DIAMOND WHEEL MOLDER Allied Health/Nurse Visit [place] [address] [place] [address] Fabian Anderson MD Allied Health Visit (Patient present for labs) 07/24/2024 - 07/24/2024 11:59 PM DIAMOND WHEEL MOLDER Hospital Encounter [facility] [address] [place] [address] Discharge Disposition: Home or Self Care (Routine Discharge) 07/24/2024 Orders Only [place] [address] [address] Viki Stallworth MA 07/24/2024 Travel 07/18/[address] [address] Fabian Anderson MD Record Request 07/17/2024 2:20 PM DIAMOND WHEEL MOLDER Office Visit [place] [address] [address] Fabian Anderson MD New Patient; Anxiety; Hypothyroidism; Follow Up (Chronic medical issues including allergies, fibromyalgia, chronic fatigue syndrome and trigger finger) 07/17/2024 Scan [employer] HE[facility] INFO SRVCS Scanned, [facility] 07/17/2024 Travel from Last 3 Months Immunizations Immunization Administration Dates Next Due Influenza (Generic) 07/07/2013 Influenza Adult (Generic) 04/02/2022 Tdap (Boostrix) 08/14/2024 Family History Medical History Relation Comments Diabetes Daughter Type 1 Mental Health Daughter Alcohol Abuse Father Drug Abuse Father Mental Health Father Cancer Maternal Aunt Cervical and ski n Diabetes Maternal Aunt Type 1 Diabetes Maternal Grandfather Type 2 Heart Disease Maternal Grandfather Hypertension Maternal Grandfather Cancer Maternal Grandmother Breast canc er Cancer Mother Colon rectal can cer Hypertension Mother Cancer Paternal Grandmother Colon cance r and skin cancer Relation Status Comments Daughter Father Maternal Aunt Maternal Grandfather Maternal Grandmother Mother Paternal Grandmother Social History Tobacco Use Types Packs/Day Years Used Date Smoking Tobacco: Never Passive Smoke Exposure: Never Smokeless Tobacco: Never Tobacco Cessation:Counseling Given: Yes Comments:Counseled by Dr. Anderson. Alcohol Use Standard Drinks/Week Comments Yes 0 (1 standard drink = 0.6 oz pur e alcohol) 1 drink every 1-2 months PHQ-2 Answer Date Recorded Patient Health Questionnaire-2 Score 0 08/14/2024 Comments No Sex and Gender Information Value Date Recorded Sex Assigned at Female 07/17/2024 2:30 PM DIAMOND WHEEL MOLDER Legal Sex Female 2:41 PM DIAMOND WHEEL MOLDER Gender Identity Female 07/17/2024 2:30 PM DIAMOND WHEEL MOLDER Sexual Orientation Lesbian or Vyas 07/17/2024 2: 30 PM DIAMOND WHEEL MOLDER Last Filed Vital Signs Vital Sign Reading Time Taken Comments Blood Pressure 130/78 08/14/2024 4:22 PM CDT Pulse 71 08/14/2024 4:22 PM CDT Temperature 36.6 C (97.8 F) 08/14/2024 4:22 PM CDT Respiratory Rate 18 08/14/2024 4:22 PM CDT Oxygen Saturation 95% 08/14/2024 4:22 PM CDT Inhaled Oxygen Concentration - - Weight 105.2 kg (232 lb) 08/14/2024 4:22 PM CDT Height 170.2 cm (5' 7 ) 08/14/2024 4:22 PM CDT Body Mass Index 36.34 08/14/2024 4:22 PM CDT Plan of Treatment Upcoming Encounters Date Type Department Care Team (Late st Contact Info) Description 10/26/2024 8:20 AM CDT Laboratory Only [facility] Multispecialty [place] [address] [address] [place] [address] Fabian Anderson MD [address] [address] 11/01/2024 3:40 PM CDT [facility] [place] [address] [address] [address] [address] [place] [address] Fabian Anderson MD [address] [address] Health Maintenance Due Date Last Done Comments Cervical Cancer Screening Pa p Smear (Age 30 to 64) Every 3 Years 1985 Annual Physical 12/18/1986 Hepatitis B Vaccines (1 of 3 - 19+ 3-dose series) 12/18/2002 Pneumococcal Vaccine: Pediat rics (0 to 5 Years) and At-Risk Patients (6 to 49 Years) (1 of 2 - PCV) 12/18/2002 COVID-19 Vaccine (2023-2 5 season) 2024 Mammogram Screening 03/03/2024 03/03/2022 Cervical Cancer Screening Pa p with HPV Testing (Age 30 to 64) Every 5 Years 02/20/2029 02/21/2024 Cervical Cancer Screening with HPV 02/20/2029 DTaP, Tdap and Td Vaccines ( 2 - Td or Tdap) 08/14/2034 08/14/2024 Hepatitis C Completed 07/24/2024 PHQ-2 (Physician [place]) Completed 08/14/2024 HPV Vaccines Aged Out No longer eligi ble based on patient's age to complete this topic Meningococcal B Vaccine Aged Out No l onger eligible based on patient's age to complete this topic Meningococcal Vaccine Aged Out No candice loy eligible based on patient's age to complete this topic RSV Immunizations Under 20 Months Aged Out No longer eligible based on patient's age to complete this topic Procedures Procedure Name Priority Date/Time Associated Diagnosis Comments HEMOGLOBIN, GLYCOSYLATED Routine 07/24/2024 7:43 AM DIAMOND WHEEL MOLDER General medical exam Drug therapy CBC W/DIFF AUTOMATED Routine 07/24/2024 7:43 AM DIAMOND WHEEL MOLDER General medical exam Drug therapy COMPREHENSIVE METABOLIC PANEL Routine 07/24/2024 7:43 AM [employer]AM[employer] WHEEL MOLDER General medical exam Drug therapy LIPID PANEL Routine 07/24/2024 7:43 AM DIAM[employer] WHEEL MOLDER General medical exam Drug therapy TSH W/REFLEX Routine 07/24/2024 7:43 AM DIAMOND WHEEL MOLDER General medical exam Drug therapy HEPATITIS C ANTIBODY Routine 07/24/2024 7:43 AM DIAMOND WHEEL MOLDER General medical exam Drug therapy URINALYSIS AUTO DIP Routine 07/18/2024 General medical exam Drug therapy LAINA (generalized anxiety disorder) COLLECTION VENOUS BLOOD VENIPUNCTURE Routine 07/17/2024 3:16 PM DIAMOND WHEEL MOLDER General medical exam Drug therapy OUTSIDE CYTOPATH CERV/VAG INTERPRET (PAP) 02/21/2024 MAMMOGRAM GENERIC (SCAN ORDER) 03/03/2022 from Last 3 Months or Most Recently Relevant to Health Maintenance Results * TSH W/REFLEX (07/24/2024 7:43 AM DIAMOND WHEEL MOLDER) Pathologist [facility] TSH 2.717 0.358 - 3.740 uIU/ML 07/24/2024 3:[address] [facility] 07/24/2024 7:43 AM [facility] Fabian Anderson MD LABORATORY Final Result [facility] [address] [place] [address], * HEMOGLOBIN, GLYCOSYLATED (07/24/2024 7:43 AM [facility]) Pathologist [facility] HGB A1C 5.3 4.5 - 6.2 % 07/24/2024 3:[address] [facility] ESTIMATED AVG GLUCOSE 105 74 - 106 MG/DL 07/24/2024 3:33 PM [employer] WHE[employer] M[employer] [facility] 07/24/2024 7:43 AM [employer]AM[employer] WHEEL MOLDER Fabian Anderson MD LABORATORY [facility] [place] [address] [place] [address], * (ABNORMAL) COMPREHENSIVE METABOLIC PANEL (07/24/2024 7:43 AM DIAMOND WHEEL MOLDER) Pathologist [facility] SODIUM S/P/B 141 136 - 145 MMOL/L 07/24/2024 3:[address] [facility] POTASSIUM S/P/B 4.0 3.5 - 5.1 MMOL/L 07/24/2024 3:[address] [facility] CHLORIDE S/P/B 104 98 - 107 MMOL/L 07/24/2024 3:[address] [facility] CO2 30.8 21 - 32 MMOL/L 07/24/2024 3:[address] [facility] GLUCOSE 91 70 - 99 MG/DL 07/24/2024 3:[address] [facility] BUN 5(L) 7 - 18 MG/DL 07/24/2024 3:[address] [facility] CREATININE S/P/B 0.74 0.55 - 1.02 MG/DL 07/24/2024 3:[address] [facility] CALCIUM S/P/B 9.1 8.4 - 10.5 MG/DL 07/24/2024 3:[address] [facility] BILIRUBIN TOTAL S/P/B 0.6 0.2 - 1.0 MG/DL 07/24/2024 3:[address] [facility] ALKALINE PHOSPHATASE S/P/B 65 37 - 98 U/L 07/24/2024 3:28 PM [employer] WHEEL M[employer] [facility] [place] AST 15 15 - 37 U/L 07/24/2024 3:[address] [facility] [place] ALT 27 14 - 59 U/L 07/24/2024 3:[address] [facility] [place] TOTAL PROTEIN S/P/B 6.6 6.4 - 8.2 G/DL 07/24/2024 3:28 PM [facility] [place] ALBUMIN S/P/B 3.8 3.4 - 5.0 G/DL 07/24/2024 3:[address] [facility] [place] ANION GAP 6.2 5 - 15 MMOL/L 07/24/2024 3:[address] [facility] [place] Comment:REFERENCE RANGE NOT ESTABLISHED OSMOLALITY (CALC) 289 MOSM/KG 025 3:28 PM [facility] [place] Comment:REFERENCE RANGE NOT ESTABLISHED GFR ESTIMATE >90 >90 ML/MIN/1. 73 M2 07/24/2024 3:[address] [facility] [place] GFR NOTES GFR REFERENCE S: 07/24/2024 3:28 PM [facility] [place] Comment: THE ESTIMATED GFR IS CALCULATED USING THE 2020 CKD-EPI EQUATION. THE FOLLOWING CATEGORIES FOR GRADING RENAL FUNCTION ARE RECOMMENDED BY THE INTERNATIONAL SOCIETY OF NEPHROLOGY (KDIGO 2012 CLINICAL PRACTICE GUIDELINE). G1,NORMAL OR HIGH: >89 ml/min/1.73 m2 G2,MILDLY DECREASED: 60-89 ml/min/1.73 m2 G3A,MILDLY TO MODERATELY DECREASED: 45-59 ml/min/1.73 m2 G3B,MODERATELY TO SEVERELY DECREASED: 30-44 ml/min/1.73 m2 G4,SEVERELY DECREASED: 15-29 ml/min/1.73 m2 G5,KIDNEY FAILURE: <15 ml/min/1.73 m2 07/24/2024 7:43 AM DIAMOND WHEEL MOLDER us Fabian Anderson MD LABORATORY Final Result [facility] [place] [address] [place] [address], * LIPID PANEL (07/24/2024 7:43 AM DIAMOND WHEEL MOLDER) CHOLESTEROL 179 <200 MG/DL 07/24/2024 3:28 PM DIAM[employer] WHEEL MOLDER [facility] TRIGLYCERIDES 129 <150 MG/DL 07/24/2024 3:[address] [facility] HDL 57 >40 MG/DL 07/24/2024 3:28 PM [employer]AM[employer] WHEEL MOLDER [facility] LDL-C 96 <100 MG/DL 07/24/2024 3:28 PM [employer] WHEEL MOLDER [facility] VLDL CALCULATION 26 5 - 28 MG/DL 07/24/2024 3:[address] [facility] CHOL/HDL RATIO 3.1 0.0 - 4.0 07/24/2024 3:[address] [facility] LDL/HDL 1.7 0.41 - 2.13 07/24/2024 3:28 PM DIAMOND WHEEL MOLDER [facility] NON HDL CHOLESTEROL 122 <140 MG/DL 07/24/2024 3:28 PM DIAM[employer] WHEEL MOLDER [facility] 07/24/2024 7:43 AM DIAMOND WHEEL MOLDER us Fabian Anderson MD LABORATORY Final Result [facility] [address] [place] [address], * HEPATITIS C ANTIBODY (07/24/2024 7:43 AM DIAMOND WHEEL MOLDER) HEPATITIS C AB NON-REACTI VE NON-REACT ABDULLAHI 07/24/2024 9:47 PM DIAMOND WHEEL MOLDER [facility] Comment: ANTIBODIES TO HCV NOT DETECTED. DOES NOT EXCLUDE THE POSSIBILITY OF EXPOSURE TO HCV. 07/24/2024 7:43 AM DIAMOND WHEEL MOLDER us Fabian Anderson MD LABORATORY Final Result [facility] [address] [place] [address], [id number] * (ABNORMAL) CBC W/DIFF AUTOMATED (07/24/2024 7:43 AM DIAMOND WHEEL MOLDER) [facility] WBC 6.60 4.00 - 10.80 x10'3/uL 07/24/2024 2:40 PM DIAMOND WHEEL MOLDER [facility] RBC 4.73 4.10 - 5.40 x10'6/uL 07/24/2024 2:40 PM DIAMOND WHEEL MOLDER [facility] HGB 14.3 12.0 - 16.0 G/DL 07/24/2024 2:[address] [facility] HCT 43.6 36.0 - 47.0 % 07/24/2024 2:40 PM DIAMOND WHEEL MOLDER [facility] MCV 92.2 78.0 - 100.0 FL 07/24/2024 2:[address] [facility] MCH 30.2 27.0 - 31.0 PG 07/24/2024 2:40 PM DIAMOND WHEEL MOLDER [facility] MCHC 32.8(L) 33.0 - 36.0 G/DL 07/24/2024 2:[address] [facility] RDW 13.2 11.5 - 14.5 % 07/24/2024 2:[address] [facility] PLT 356(H) 150 - 350 x10'3/uL 07/24/2024 2:[address] [facility] MPV 9.8 7.4 - 10.4 FL 07/24/2024 2:[address] [facility] DIFFERENTIAL TYPE AUTOMATED DIFFERENTIAL 07/24/2024 2:[address] [facility] NEUTROPHILS % 64.7 % 07/24/2024 2:[address] [facility] LYMPHOCYTES % 24.2 % 07/24/2024 2:40 PM DIAMOND WHEEL MOLDER [facility] MONOCYTES % 8.0 % 07/24/2024 2:40 PM DIAM[employer] WHEEL MOLDER [facility] EOSINOPHILS % 2.6 % 07/24/2024 2:40 PM DIAM[employer] WHEEL MOLDER [facility] BASOPHILS % 0.5 % 07/24/2024 2:40 PM DIAMOND WHEEL MOLDER [facility] IMMATURE GRANS % 0.0 % 07/24/2024 2:40 PM DIAMOND WHEEL MOLDER [facility] ABS. NEUTROPHILS 4.27 1.60 - 8.30 x10'3/uL 07/24/2024 2:40 PM DIAMOND WHEEL MOLDER [facility] ABS. LYMPHOCYTES 1.60 0.80 - 4.70 x10'3/uL 07/24/2024 2:40 PM DIAMOND WHEEL MOLDER [facility] ABS. MONOCYTES 0.53 0.00 - 1.50 x10'3/uL 07/24/2024 2:40 PM DIAMOND WHEEL MOLDER [facility] ABS. EOSINOPHILS 0.17 0.00 - 0.40 x10'3/uL 07/24/2024 2:40 PM DIAMOND WHEEL MOLDER [facility] ABS. BASOPHILS 0.03 0.00 - 0.20 x10'3/uL 07/24/2024 2:40 PM DIAMOND WHEEL MOLDER [facility] ABS. IMMATURE GRANULOCYTES 0.00 0.00 - 0.03 x10'3/uL 07/24/2024 2:40 PM DIAMOND WHEEL MOLDER [facility] 07/24/2024 7:43 AM DIAMOND WHEEL MOLDER us Fabian Anderson MD LABORATORY Final Result [facility] [address] [place] [address], [place] [phone] * (ABNORMAL) URINALYSIS AUTO DIP (07/18/2024) COLOR (U) YELLOW YELLOW [address], [place] TRANSPARENCY CLEAR CLEAR [address], [place] GLUCOSE (U) NEGATIVE NEGATIVE MG/DL [address], [place] BILIRUBIN (U) NEGATIVE NEGATIVE MG-[address], [place] KETONES MG/DL (U) NEGATIVE NEGATIVE MG/DL [address], [place] SPECIFIC GRAVITY (U) 1.015 1.001 - 1.035 [address], [place] BLOOD (U) TRACE (Non Hemolyzed, Intact)(A) NEGATIVE MG[address], [place] U PH 7.5 5.0 - 9.0 [address], [place] PROTEIN (U) NEGATIVE NEGATIVE mg/dL MG[address], [place] UROBILINOGEN 0.2 0.2 - 1.0 EU/dL = mg/dL MG[address], [place] NITRITES NEGATIVE NEGATIVE MG/DL MG[address], [place] LEUKOCYTES (U) NEGATIVE NEGATIVE MG-[address], [place] URINE SPECIMEN OBTAINED BY CLEAN CATCH PROCEDURE / Unknown 07/18/2024 Fabian Anderson MD URINE ORDERABLES Final Result [address], [facility] [address] [place] [address], * PAP SMEAR WITH HPV (02/21/2024) 02/21/2024 [employer] Scanned SCANNING Final Resu lt * MAMMOGRAM GENERIC (SCAN ORDER) (03/03/2022) Anatomical Region Laterality Modality Other 03/03/2022 [employer] Scanned SCANNING Final Resu lt from Last 3 Months or Most Recently Relevant to Health Maintenance Insurance [employer] Care Teams Basket Sorter Relationship Specialty Start Date End Date Fabian Anderson MD [address] [address] PCP - General INTERNAL MEDICINE 04/25/24
--- OUTSIDE RECORDS SUMMARY | 2024-09-25 17:28 | XMS_ITS | Encounter Summary ---
Author Organization [facility] Address [address] [place] [address] Care Team Providers Care Script Worker Name Role Phone Fabian Anderson MD Primary Care Provider [phone] Reason for Visit * Reason Onset Date Comments Appointment Request 09/25/2024 Encounter Details Date Type Department Care Team (Late st Contact Info) Description 09/25/2024 Telephone [facility] Multispecialty Care [place] [address] [address] [place] [address] Fabian Anderson MD [address] [place] [phone] Appointment Request Social History Tobacco Use Types Packs/Day Years Used Date Smoking Tobacco: Never Passive Smoke Exposure: Never Smokeless Tobacco: Never Comments:Counseled by Dr. Delaney noble. Alcohol Use Standard Drinks/Week Comments Yes 0 (1 standard drink = 0.6 oz pur e alcohol) 1 drink every 1-2 months PHQ-2 Answer Date Recorded Patient Health Questionnaire-2 Score 0 08/14/2024 Comments No Sex and Gender Information Value Date Recorded Sex Assigned at Female 07/17/2024 2:30 PM HUMAN RESOURCES CLERK Legal Sex Female 2:41 PM HUMAN RESOURCES CLERK Gender Identity Female 07/17/2024 2:30 PM HUMAN RESOURCES CLERK Sexual Orientation Lesbian or Vyas 07/17/2024 2: 30 PM HUMAN RESOURCES CLERK documented as of this encounter Progress Notes * Angie Greer - 09/25/2024 2:06 PM CDT The patient requested an appointment for today for Stomach cramps, diarrhea, fever and it is messing up her POTS causing Tachycardia. I spoke with Antonia Hagen MA who spoke with Dr. Fabian Anderson about this and per Dr. Anderson the patient was advised to be evaluated at the Emergency Room. The patient voiced understanding. documented in this encounter Plan of Treatment Upcoming Encounters Date Type Department Care Team (Late st Contact Info) Description 10/26/2024 8:20 AM CDT Laboratory Only [address] [address] Fabian Anderson MD [address] [place] [address] 11/01/2024 3:40 PM CDT Office Visit [address] [address] Fabian Anderson MD [address] [place] [address] documented as of this encounter Visit Diagnoses Not on filedocumented in this encounter Additional Health Concerns Assessment Noted Time PHQ-9 Depression Total Score: 6 08/15/19 25 5:15 PM CDT documented as of this encounter Care Teams Script Worker Relationship Specialty Start Date End Date Fabian Anderson MD [address] [place] [address] PCP - General INTERNAL MEDICINE 04/25/24 documented as of this encounter
--- OUTSIDE RECORDS SUMMARY | 2024-09-25 17:28 | XMS_ITS ---
Author Organization [facility] [place] ([address]) Address [address] [facility] [address] [place] [address] Care Team Providers Care Drafter Assistant Name Role Phone Fabian Anderson Primary Care Provider Vannessa Ko [phone] Jackie Neal Unavailable Unavailable REASON FOR VISIT Chronic care management Encounters Encounter Location Date Provider Diagnosis [address] [address] 08/31/2024 Vannessa Hernandez Plan Of Treatment Next Appt Details Provider Name:Eulalio Nunez , 09/28/2024 04:00:00 PM, [address] [facility], [address], [address], Provider Name:Eulalio Nunez , 10/02/2024 04:10:00 PM, [address] [facility], [facility] [address], [place], [address], Progress Notes * Ivana FITZGERALDDOB:1985 ( 38 yo F)Acc No.[id number]:08/31/2024 Patient: Ivana MONDRAGON :1985 A ge:38 Y S ex:Female Address:[address] [place] [address] * true * Date: Generated for Jeffrey almaguer/Black/Rafaelitting on: 0 09/25/2024 05:28 PM CDT
--- OUTSIDE RECORDS SUMMARY | 2024-09-25 17:28 | XMS_ITS | Continuity of Care Document ---
Author Organization [facility] Address [address] [place] [address] Phone Care Team Providers Care Director Of Counseling Name Role Phone Jimmie RICHARDSON, Donna Unavailable Unavailable Allergies, Adverse Reactions, Alerts Substance Reaction Status Criticality cefaclor Active No Information Medications Medication Instructions Dosage Effective Dates (start - stop) Status Comments Corlanor 5 mg tablet take 1 tablet by or al route 2 times every day 5 MG - Active Procedures Procedure Date RADEX WRST COMPL MINIMUM 3 VIEWS 2022 RADEX MELISSA COMPL MINIMUM 2 VIEWS 023 Wrist Long and Short Splint Wrist Long and Short Splint Betamethasone acet&sod phosp Drugs unclassified injection DRAIN/INJECT JOINT/BURSA OFFICE/OUTPATIENT VISIT NEW Advance Directives Directive Yes / No Effective Date File Name No Information Encounters Encounter Description Practice Location Reason(s) For Visit Diagnoses Date Provider Providers Copied on Encounter OFFICE/OUTPAT IENT VISIT NEW [facility], [address], [place], [address], [place] tel:[phone] [facility] Pain in left wristPain in right shoulderCarpal tunnel syndrome, bilateral upper limbsCubital tunnel syndrome of both upper extremitiesBody mass index [BMI] 32.0-32.9, adult Apr- 3 Jimmie Thompson. [address], [place], [place], [id number] , [place]. tel:[phone] Family History Family Member Type Diagnosis Age At Onset No Information Payers Payer name Insurance type Covered green party ID Authoriza tion(s) [facility] Choice/Choice Plus E2 [id number] Social History Type Description Quantity Date Captured Comments Alcohol Use Details Unknown Caffeine Use Details Unknown Tobacco Use Status No Information Smoking Status No Information Sex Female Vital Signs Date / Time: Height Weight BMI Pulse Rate Blood Pressure Temperature Respiratory Rate Body Surface Area Head Circumference Head Circ. Percentile Wt./Kendrick. Percentile BMI percentile Pulse Ox Inhaled Ox 9:36 AM 67.00 in 92.986 kg (205.00 lbs) 32.1 1 kg/m eter (2) Chief Complaint And Reason For Visit No Information Reason For Referral Reason For Referral No Information Plan Of Treatment Date Type Action Status Referral Ordered: RADEX MELISSA COMPL MINIMUM 2 VIEWS RT shoulder ordered Referral Ordered: RADEX WRST COMPL MINIMUM 3 VIEWS LT wrist ordered History Of Present Illness Encounter Date Complaint History Of Prese nt Illness No Information Functional Status Date Functional Assessmen t No Information Instructions Date Instruction Additional Infor mation Giving encouragement to exercise Related to Body mass index [BMI] 32.0-32.9, adult Assessments Type Assessment Date assessment Pain in left wrist assessment Pain in right shoulder assessment Carpal tunnel syndrome, bilatera l upper limbs assessment Cubital tunnel syndrome of both upper extremities assessment Body mass index [BMI] 32.0-32.9, adult Patient Care Teams Name Effective Dates (start - stop) Status Members No Information
--- OUTSIDE RECORDS SUMMARY | 2024-09-25 17:28 | XMS_ITS | Continuity of Care Document ---
Author Organization [facility] Address [address] [place] [address] Phone Care Team Providers Care Lumber Sales Supervisor Name Role Phone Lucas PT,MPT,ATC, Chava Unavailable Unavai lable Procedures Procedure Date Therapeutic Activities Therapeutic Activities PT Evaluation Moderate Complexity Therapeutic Activities Neuromuscular Re-Ed Advance Directives Directive Yes / No Effective Date File Name No Information Encounters Encounter Description Practice Location Reason(s) For Visit Diagnoses Date Provider Providers Copied on Encounter [facility], [address], [place], [place], [id number], tel:[phone] [place] No Information [address] [place], [place], [place]. [facility], [address], [place], [place], [id number], tel:[phone] [place] No Information [address] [place]. Referring Provider: Jackie Neal, [address] [place], [address]. tel:[phone] [facility] [address], [place], [place], [id number], tel:[phone] [place] No Information [address] [place] Referring Provider: Jackie Neal, [address] [place], [address]. tel:[phone] [place] [address], [place], [place], [id number], [place] tel:[phone] [place] No Information 4 [place], [place]. Referring Provider: Jackie Neal, [address] [place], [place], [address]. tel:[phone] Family History Family Member Type Diagnosis Age At Onset No Information Payers Payer name Insurance type Covered green party ID Authorzack lyons(s) [employer]ociate [id number] Social History Type Description Quantity Date Captured Comments Sex Female Smoking Status No Information Chief Complaint And Reason For Visit No Information Reason For Referral Reason For Referral No Information History Of Present Illness Encounter Date Complaint History Of Prese nt Illness No Information Functional Status Date Functional Assessmen t No Information Instructions Date Instruction Additional Infor mation No Information Assessments Type Assessment Date No Information Patient Care Teams Name Effective Dates (start - stop) Status Members No Information
--- OUTSIDE RECORDS SUMMARY | 2024-09-25 17:29 | XMS_ITS | Referral Summary ---
Author Organization [facility] [address] [facility] lto Address [address] [place] [address] Care Team Providers Care Regulator Assembler Name Role Phone Jackie Neal MD Unavailable [phone] Fabian Anderson MD Primary Care Provider [phone] Encounters Date Type Department Care Team Description 08/31/2024 Telephone [facility] Cardiology [address] [place] [phone] Cachorro Graham MD 08/03/2024 3:45 PM ROLL BUILDER Office Visit [facility] Cardiology [address] [place] [address] [address] [place] [phone] Cachorro Graham MD POTS (postural orthostatic tachycardia syndrome) (Primary Dx) 07/26/2024 Telephone [facility] Cardiology [address] [place] [address] [address] [place] [phone] Cachorro Graham MD from Last 3 Months Allergies Active Allergy Reactions Criticality Noted Date Comments Cefaclor Hives,Urticaria High 01/10/2010 Medications loperamide (IMODIUM A-D) 2 mg tablet Take 1 tablet (2 mg total) by mouth 4 (four) times a day as needed 2 Active busPIRone (BUSPAR) 7.5 mg tablet Take 10 mg by mouth 2 (two) times a day 3 Active Trelegy Ellipta 200-62.5-25 mcg inhaler daily Active Pepcid 20 mg tablet 2 (two) times a day Active olopatadine 0.6 % spray,non-aero martita every 12 hours 4 Active montelukast (SINGULAIR) 10 mg tablet daily Active fluticasone propionate (FLONASE) 50 mcg/actuation nasal spray every 12 hours Act ángela Ubrelvy 100 mg tablet 1 tab(s) orally once Active omalizumab (Xolair) 150 mg injection 300 mg subcutaneously every 4 weeks for 30 day(s) Active albuterol HFA (PROVENTIL HFA,VENTOLIN HFA,PROAIR HFA) 90 mcg/actuation inhaler Inhale 1-2 puffs every 6 (six) hours as needed for wheezing 1 g 4 025 Active ibuprofen (ADVIL,MOTRIN) 600 mg tabletIndicati ons:Anti-infla mmatory,Fever, Pain Take 1 tablet (600 mg total) by mouth every 6 (six) hours as needed for pain or fever 20 tablet 4 Active ivabradine (Corlanor) 5 mg tablet Take 1 tablet (5 mg total) by mouth 2 (two) times a day 180 tablet 1 5 Active Active Problems Problem Noted Date Diagnosed Date Asthma 01/21/2022 POTS (postural orthostatic tachycardia syndrome) 11/19/2011 Immunizations Immunization Administration Dates Next Due Influenza, Trivalent, IM (MDV) 07/07/2013 Social History Tobacco Use Types Packs/Day Years Used Date Smoking Tobacco: Never Passive Smoke Exposure: Past Tobacco Cessation:Counseling Given: Not Answered Alcohol Use Standard Drinks/Week Comments Not Currently 0 (1 standard drink = 0.6 oz pur e alcohol) AUDIT-C Answer Date Recorded Q1: How often do you have a drink containing alc ohol? Monthly or less 01/27/2024 Q2: How many drinks containi ng alcohol do you have on a typical day when you are drinking? 1 or 2 01/27/2024 Q3: How often do you have si x or more drinks on one occasion? Never 01/27/2024 Personal Safety Answer Date Recorded Have you ever been in or are you currently in a harmful physical or emotional relationship or is someone making you feel afraid or unsafe? Denies 06/02/2024 Comments Unknown Sex and Gender Information Value Date Recorded Sex Assigned at Not on file Legal Sex Female 4:45 AM ROLL BUILDER Gender Identity Not on file Sexual Orientation Not on file Last Filed Vital Signs Vital Sign Reading Time Taken Comments Blood Pressure 130/74 08/03/2024 3:26 PM ROLL BUILDER Pulse 87 08/03/2024 3:26 PM ROLL BUILDER Temperature 37 C (98.6 F) 06/02/2024 9:31 AM ROLL BUILDER Respiratory Rate 18 06/02/2024 9:31 AM ROLL BUILDER Oxygen Saturation 99% 08/03/2024 3:26 PM ROLL BUILDER Inhaled Oxygen Concentration - - Weight 104.8 kg (231 lb) 08/03/2024 3:26 PM ROLL BUILDER Height 171.5 cm (5' 7.5 ) 08/03/2024 3:26 PM ROLL BUILDER Body Mass Index 35.65 08/03/2024 3:26 PM ROLL BUILDER Plan of Treatment Not on file Insurance [facility] CHOICE PLUS [facility] CHOICE PLUS [facility] CHOICE PLUS [facility] [employer] Care Teams Regulator Assembler Relationship Specialty Start Date End Date Fabian Anderson MD [address] [address] PCP - General Internal Medicine 08/03/24 aJckie Neal MD [address] [place] [address] 01/05/22
--- OUTSIDE RECORDS SUMMARY | 2024-09-25 17:29 | XMS_ITS | Patient Health Record ---
Author Organization [facility] [employer] [place] ([address]) Address [address] [place] [address] Care Team Providers Care Protein Purification Scientist Name Role Phone Fabian Anderson Primary Care Provider Unavailabl Vannessa Yeung Unavailable [phone] Jackie Neal Unavailable Unavailable Eulalio Nunez Unavailable [phone] Adriana El Unavailable [phone] Sharon Cervantes Unavailable [phone] Shayy Land Unavailable [phone] [facility], Provider Unavailable Unavailab le Allergies Allergen (clinical drug ingredient) Drug/Non Drug Allergy documented on EMR Reaction Allergy Type Onset Date Status CECLOR (uncoded) hives Allergy Act ángela Results Component Value Reference Range Notes Spirometry Reviewed date:08/03/2024 01:46:35 PM Interpretation:Abnormal Performing Lab: Notes/Report: Abnormal SpiroPreBronchodilator_FVC 2.87 SpiroPostBronchodilator_FEF25_75 0 SpiroPreBronchodilator_FEF25_75 2.87 SpiroPreBronchodilator_FEV1 2.42 SpiroPrecentPredictionPost_FEF25_75 0 SpiroPrecentPredictionPost_FEV1 0 SpiroPrecentPredictionPost_FEV1_OVER_FVC 0 SpiroPrecentPredictionPost_FVC 0 SpiroPrecentPredictionPre_FEF25_75 83.4 SpiroPrecentPredictionPre_FEV1 76.1 SpiroPrecentPredictionPre_FEV1_OVER_FVC 102.5 SpiroPrecentPredictionPre_FVC 74.7 SpiroPredicted_FEF25_75 3.44 SpiroPreBronchodilator_FEV1_OVER_FVC 84.4 SpiroPreBronchodilator_PEF 5.68 SpiroPostBronchodilator_FVC 0 SpiroPostBronchodilator_FEV1 0 SpiroPostBronchodilator_FEV1_OVER_FVC 0 SpiroPostBronchodilator_PEF 0 SpiroPredicted_FVC 3.84 SpiroPredicted_FEV1 3.18 SpiroPredicted_FEV1_OVER_FVC 82.38 SpiroPredicted_PEF 6.54 Reason For Referral No Information Medications Medication SIG (Take, Route, Frequency, Duration) Notes Start Date End Date Status PEPCID 20 mg 1 tab(s) orally 2 times a day Not-Taking MONTELUKAST 10 mg 1 tab(s) orally once a day for 30 day(s) Not-Taking XOLAIR 150 mg 300 mg subcutaneously every 4 weeks for 30 day(s) Active Montelukast Sodium 10 MG 1 tab(s) orally once a day for 30 days Not-Taking MONTELUKAST 10 mg 1 tab(s) orally once a day for 30 day(s) Active UBRELVY 100 mg 1 tab(s) orally once Not-Taking Trelegy Ellipta 200 mcg-62.5 mcg-25 mcg/inh 1 puff(s) inhaled once a day for 30 days Not-Taking TRELEGY ELLIPTA 200 mcg-62.5 mcg-25 mcg/inh 1 puff(s) inhaled once a day for 30 days Not-Taking Olopatadine HCl 0.6 % 2 sprays in each nostril Nasally Twice a day for 90 days As needed 08/31/2024 Active ALBUTEROL CFC free 90 mcg/inh 2-4 puff(s) with spacer inhaled QID, PRN per asthma action plan Not-Taking OLOPATADINE HYDROCHLORIDE 665 mcg/inh 2 spray(s) intranasally 2 times a day for 30 days Not-Taking FLUTICASONE NASAL 50 mcg/inh 2 spray(s) in each nostril BID for 30 days Not-Taking ZYRTEC 10 mg 1 tab(s) orally bid for 30 days Active Trelegy Ellipta 200-62.5-25 MCG/ACT INHALE 1 PUFF ONCE DAILY for 30 Not-Taking CORLANOR 5 mg 1 tab(s) orally 2 times a day (with meals) Active BUSPIRONE 7.5 mg 1 tab(s) orally 2 times a day Active Ipratropium [place] 0.06 % 2 sprays in each nostril Nasally Three times a day for 30 days Active ZyrTEC Allergy 10 MG 1 tablet Orally Once a day for 90 days Active PEPCID 20 mg 1 tab(s) orally 2 times a day Active NASAL WASHES N/A as directed intranasally as needed for 30 Active Corlanor 5 MG 1 tab(s) orally 2 times a day (with meals) Active FLUTICASONE NASAL 50 mcg/inh 2 spray(s) in each nostril BID for 30 days Active busPIRone HCl 15 MG 1 tab(s) orally 2 times a day Active predniSONE 20 MG 1 tab(s) orally bid for 5 day(s) 12/15/2022 Not-Taking Fluticasone Propionate 50 MCG/ACT 2 spray(s) in each nostril BID for 30 days Active Trelegy Ellipta 200 MCG-62.5 MCG-25 MCG/INH 1 PUFF(S) INHALED ONCE A DAY for 30 DAYS *Please review and pick correct strength-formula tion from [facility] options. If intended option is not shown, discontinue and re-order from Quick Search* Not-Taking Montelukast Sodium 10 MG 1 tab(s) orally once a day for 30 days Active OLOPATADINE HYDROCHLORIDE 665 MCG/INH 2 SPRAY(S) INTRANASALLY 2 TIMES A DAY for 90 DAYS *Please review for potential replacement for e-prescription and drug interaction check* Not-Taking Famotidine 20 MG 1 tablet Orally Twice a day for 90 days Active TRELEGY ELLIPTA 200 mcg-62.5 mcg-25 mcg/inh 1 puff(s) inhaled once a day for 30 days Active Pepcid 20 mg 1 tab(s) orally 2 times a day Not-Taking Albuterol Sulfate HFA 108 (90 Base) MCG/ACT 2-4 puff(s) with spacer inhaled QID, PRN per asthma action plan for 30 days Active TRELEGY ELLIPTA 200 mcg-62.5 mcg-25 mcg/inh 1 puff(s) inhaled once a day for 30 days Active PEPCID 20 mg 1 tab(s) orally 2 times a day for 30 days Active Pepcid 20 mg 1 tab(s) orally 2 times a day for 30 days Active Olopatadine HCl 0.6 % 2 sprays in each nostril Nasally Twice a day for 30 days 11/21/2023 Active ALBUTEROL CFC free 90 mcg/inh 2-4 puff(s) with spacer inhaled QID, PRN per asthma action plan Active Trelegy Ellipta 200 mcg-62.5 mcg-25 mcg/inh 1 puff(s) inhaled once a day for 30 days Active Ubrelvy 100 MG 1 tab(s) orally once Active Xolair 150 MG 300 mg subcutaneously every 4 weeks for 30 day(s) Active PREDNISONE 20 mg 1 tab(s) orally bid for 5 day(s) 12/15/2022 Not-Taking TRELEGY ELLIPTA 200 mcg-62.5 mcg-25 mcg/inh 1 puff(s) inhaled once a day for 30 days Not-Taking PEPCID 20 mg 1 tab(s) orally 2 times a day for 30 days Not-Taking Social History Tobacco Use: Social History Observation Description Date Details (start date - stop date) Never Smoker NA - NA Tobacco Control (Standard) Question Answer Notes Tobacco use: Nonsmoker AUDIT-C (Standard) Question Answer Notes Did you have a drink contain ing alcohol in the past year? Yes How often did you have a dri nk containing alcohol in the past year? Monthly or less (1 point) How many drinks did you have on a typical day when you were drinking in the past year? 1 or 2 drinks (0 point) How often did you have six o r more drinks on one occasion in the past year? Never (0 point) Points 1 Interpretation Negative Problems Problem Type SNOMED Code ICD Code Onset Dates Problem Status W/U Status Risk Notes Problem Idiopathic urticaria (15159004) Idiopathic urticaria (L50.1) Active confirmed Problem Anxiety disorder (933200392) Anxiety disorder, unspecified (F41.9) Active confirmed Problem Chronic allergic conjunctivitis (06235197) Other chronic allergic conjunctivitis (H10.45) Active confirmed Problem influenza due to influenza a virus with upper respiratory signs (disorder) (487607430833976) Influenza due to identified novel influenza A virus with other respiratory manifestations (J09.X2) Active confirmed Problem Allergic rhinitis caused by pollen (disorder) (25917493) Allergic rhinitis due to pollen (J30.1) Active confirmed Problem Allergic rhinitis (10409586) Other allergic rhinitis (J30.89) Active confirmed Problem Uncomplicated moderate persistent asthma (464415618) Moderate persistent asthma, uncomplicated (J45.40) Active confirmed Problem Uncomplicated severe persistent asthma (649703800) Severe persistent asthma, uncomplicated (J45.50) Active confirmed Problem Tachycardia (2628328) Tachycardia, unspecified (R00.0) Active confirmed Problem Dysphagia (92352445) Dysphagia, unspecified (R13.10) Active confirmed Problem Dizziness and giddiness (804458509) Dizziness and giddiness (R42) Active confirmed Problem Allergic rhinitis caused by animal hair and dander (682065285232977) Allergic rhinitis due to animal (cat) (dog) hair and dander (J30.81) Active confirmed Problem Allergy to penicillin (72539030) Allergy status to penicillin (Z88.0) Active confirmed Problem Chronic cough (56053499) Chronic cough (R05.3) Active confirmed Problem Postural orthostatic tachycardia syndrome (disorder) (370176575) Postural orthostatic tachycardia syndrome [POTS] (G90.A) Active confirmed Vital Signs Respiratory Rate 17 /min 08/31/2024 Oximetry 100 % 08/31/2024 Blood pressure diastolic 80 mm Hg 08/31/2024 Height 66.5 in 08/31/2024 Blood pressure systolic 127 mm Hg 08/31/2024 Weight 234.8 lbs 08/31/2024 BMI 37.33 kg/m2 08/31/2024 Encounters Encounter Location Date Provider Diagnosis [address] [address] 11/20/2023 Provider [facility] Idiopathic urticaria L50.1 ; Chronic cough R05.3 and Allergic rhinitis due to pollen J30.1 [facility] [address] [place] [address] 10/04/2023 Eulalio Nunez Allergic rhinitis du e to pollen J30.1 ; Allergic rhinitis due to animal (cat) (dog) hair and dander J30.81 ; Other allergic rhinitis J30.89 and Other chronic allergic conjunctivitis H10.45 [facility] [address] [place] [phone] 10/07/2023 Eulalio Enrique Other Urticaria L50. [address] [address] 10/11/2023 Eulalio Nunez Allergic rhinitis du e to pollen J30.1 ; Allergic rhinitis due to animal (cat) (dog) hair and dander J30.81 ; Other allergic rhinitis J30.89 and Other chronic allergic conjunctivitis H10.45 [facility] [place] [address] [place] [phone] 10/14/2023 Eulalio Nunez Allergic rhinitis du e to pollen J30.1 ; Allergic rhinitis due to animal (cat) (dog) hair and dander J30.81 ; Other allergic rhinitis J30.89 and Other chronic allergic conjunctivitis H10.45 [facility] [place] [address] [place] [phone] 10/25/2023 Eulalio Enrique Allergic rhinitis du e to pollen J30.1 ; Allergic rhinitis due to animal (cat) (dog) hair and dander J30.81 ; Other allergic rhinitis J30.89 and Other chronic allergic conjunctivitis H10.45 [facility] [place] [address] [place] [address] 11/03/2023 Eulalio Nunez Allergic rhinitis du e to pollen J30.1 ; Allergic rhinitis due to animal (cat) (dog) hair and dander J30.81 ; Other allergic rhinitis J30.89 and Other chronic allergic conjunctivitis H10.45 [facility] [place] [address] [place] [address] 11/04/2023 Vannessa Young Chronic cough R05.3 ; Idiopathic urticaria L50.1 ; Allergic rhinitis due to pollen J30.1 ; Allergic rhinitis due to animal (cat) (dog) hair and dander J30.81 ; Other allergic rhinitis J30.89 ; Other chronic allergic conjunctivitis H10.45 ; Dysphagia, unspecified R13.10 and Allergy status to penicillin Z88.0 [facility] [place] [address] [place] [phone] 11/09/2023 Eulalio Nunez Allergic rhinitis du e to pollen J30.1 ; Allergic rhinitis due to animal (cat) (dog) hair and dander J30.81 ; Other allergic rhinitis J30.89 and Other chronic allergic conjunctivitis H10.45 [facility] [address] [place], [place] [address] [address] [place] [phone] 11/17/2023 Eulalio Nunez Allergic rhinitis du e to pollen J30.1 ; Allergic rhinitis due to animal (cat) (dog) hair and dander J30.81 ; Other allergic rhinitis J30.89 and Other chronic allergic conjunctivitis H10.45 [facility] [address] [place], [place] [address] [address] [place] [phone] 11/24/2023 Eulalio Nunez Allergic rhinitis du e to pollen J30.1 ; Allergic rhinitis due to animal (cat) (dog) hair and dander J30.81 ; Other allergic rhinitis J30.89 and Other chronic allergic conjunctivitis H10.45 [facility] [address] [place] [address] [employer] [address] [place] [phone] 12/02/2023 Eulalio Nunez Other Urticaria L50. 8 [facility] [place] [address] [place] [address] [employer] [address] [place] [phone] 12/06/2023 Eulalio Nunez Allergic rhinitis du e to pollen J30.1 ; Allergic rhinitis due to animal (cat) (dog) hair and dander J30.81 ; Other allergic rhinitis J30.89 and Other chronic allergic conjunctivitis H10.45 [facility] [address] [place] [address] [employer] [address] [place] [phone] 12/15/2023 Eulalio Nunez Allergic rhinitis du e to pollen J30.1 ; Allergic rhinitis due to animal (cat) (dog) hair and dander J30.81 ; Other allergic rhinitis J30.89 and Other chronic allergic conjunctivitis H10.45 [facility] [address] [place] [address] [employer] [address] [place] [phone] 12/22/2023 Eulalio Nunez Allergic rhinitis du e to pollen J30.1 ; Allergic rhinitis due to animal (cat) (dog) hair and dander J30.81 ; Other allergic rhinitis J30.89 and Other chronic allergic conjunctivitis H10.45 [facility] [address] [address] 01/03/2024 Eulalio Nunez Other Urticaria L50. 8 [facility] [place] [address] [place] [phone] 01/05/2024 Eulalio Nunez Allergic rhinitis du e to pollen J30.1 ; Allergic rhinitis due to animal (cat) (dog) hair and dander J30.81 ; Other allergic rhinitis J30.89 and Other chronic allergic conjunctivitis H10.[address] [address] 01/12/2024 Eulalio Nunez Allergic rhinitis du e to pollen J30.1 ; Allergic rhinitis due to animal (cat) (dog) hair and dander J30.81 ; Other allergic rhinitis J30.89 and Other chronic allergic conjunctivitis H10.45 [facility] [place] [address] [place] [address] 01/19/2024 Eulalio Nunez Allergic rhinitis du e to pollen J30.1 ; Allergic rhinitis due to animal (cat) (dog) hair and dander J30.81 ; Other allergic rhinitis J30.89 and Other chronic allergic conjunctivitis H10.45 [facility] [place] [address] [place] [phone] 01/25/2024 Eulalio Nunez Allergic rhinitis du e to pollen J30.1 ; Allergic rhinitis due to animal (cat) (dog) hair and dander J30.81 ; Other allergic rhinitis J30.89 and Other chronic allergic conjunctivitis H10.45 [facility] [place] [address] [place] [phone] 02/01/2024 Eulalio Nunez Allergic rhinitis du e to pollen J30.1 ; Allergic rhinitis due to animal (cat) (dog) hair and dander J30.81 ; Other allergic rhinitis J30.89 and Other chronic allergic conjunctivitis H10.45 [facility] [place] [address] [place] [phone] 02/03/2024 Vannessa Young Chronic cough R05.3 ; Idiopathic urticaria L50.1 ; Allergic rhinitis due to pollen J30.1 ; Allergic rhinitis due to animal (cat) (dog) hair and dander J30.81 ; Other allergic rhinitis J30.89 ; Other chronic allergic conjunctivitis H10.45 ; Dysphagia, unspecified R13.10 and Allergy status to penicillin Z88.0 [facility] [place] [address] [place] [phone] 02/10/2024 Eulalio Enrique Allergic rhinitis du e to pollen J30.1 ; Allergic rhinitis due to animal (cat) (dog) hair and dander J30.81 ; Other allergic rhinitis J30.89 and Other chronic allergic conjunctivitis H10.[address] [address] 02/16/2024 Eulalio Nunez Allergic rhinitis du e to pollen J30.1 ; Allergic rhinitis due to animal (cat) (dog) hair and dander J30.81 ; Other allergic rhinitis J30.89 and Other chronic allergic conjunctivitis H10.[address] [address] 02/24/2024 Eulalio Nunez Allergic rhinitis du e to pollen J30.1 ; Allergic rhinitis due to animal (cat) (dog) hair and dander J30.81 ; Other allergic rhinitis J30.89 and Other chronic allergic conjunctivitis H10.45 [facility] [place] [address] [place] [address] 03/02/2024 Eulalio Nunez Other Urticaria L50. [address] [address] 03/09/2024 Eulalio Nunez Allergic rhinitis du e to pollen J30.1 ; Allergic rhinitis due to animal (cat) (dog) hair and dander J30.81 ; Other allergic rhinitis J30.89 and Other chronic allergic conjunctivitis H10.45 [facility] [place] [address] [place] [phone] 03/23/2024 Eulalio Nunez Allergic rhinitis du e to pollen J30.1 ; Allergic rhinitis due to animal (cat) (dog) hair and dander J30.81 ; Other allergic rhinitis J30.89 and Other chronic allergic conjunctivitis H10.45 [facility] [place] [address] [place] [phone] 03/30/2024 Eulalio Nunez Other Urticaria L50. [address] [address] 04/05/2024 Eulalio Nunez Allergic rhinitis du e to pollen J30.1 ; Allergic rhinitis due to animal (cat) (dog) hair and dander J30.81 ; Other allergic rhinitis J30.89 and Other chronic allergic conjunctivitis H10.[address] [address] 04/27/2024 Eulalio Nunez Other Urticaria L50. [address] [address] 05/02/2024 Eulalio Nunez Allergic rhinitis du e to pollen J30.1 ; Allergic rhinitis due to animal (cat) (dog) hair and dander J30.81 ; Other allergic rhinitis J30.89 and Other chronic allergic conjunctivitis H10.[address] [address] 05/17/2024 Eulalio Nunez Allergic rhinitis du e to pollen J30.1 ; Allergic rhinitis due to animal (cat) (dog) hair and dander J30.81 ; Other allergic rhinitis J30.89 and Other chronic allergic conjunctivitis H10.[address] [address] 06/05/2024 Shayy Land Chronic cough R05.3 ; Idiopathic urticaria L50.1 ; Influenza due to identified novel influenza A virus with other respiratory manifestations J09.X2 ; Allergic rhinitis due to pollen J30.1 ; Allergic rhinitis due to animal (cat) (dog) hair and dander J30.81 ; Other allergic rhinitis J30.89 ; Other chronic allergic conjunctivitis H10.45 ; Dysphagia, unspecified R13.10 and Allergy status to penicillin Z88.[address] [address] 06/15/2024 Eulalio Nunez Allergic rhinitis du e to pollen J30.1 ; Allergic rhinitis due to animal (cat) (dog) hair and dander J30.81 ; Other allergic rhinitis J30.89 and Other chronic allergic conjunctivitis H10.45 [facility] [place] [address] [place] [phone] 07/05/2024 Eulalio Nunez Allergic rhinitis du e to pollen J30.1 ; Allergic rhinitis due to animal (cat) (dog) hair and dander J30.81 ; Other allergic rhinitis J30.89 and Other chronic allergic conjunctivitis H10.[address] [address] 08/02/2024 Eulalio Nunez Allergic rhinitis du e to pollen J30.1 ; Allergic rhinitis due to animal (cat) (dog) hair and dander J30.81 ; Other allergic rhinitis J30.89 and Other chronic allergic conjunctivitis H10.45 [facility] [place] [address] [place] [address] 08/03/2024 Vannessa Young Chronic cough R05.3 ; Idiopathic urticaria L50.1 ; Influenza due to identified novel influenza A virus with other respiratory manifestations J09.X2 ; Allergic rhinitis due to pollen J30.1 ; Allergic rhinitis due to animal (cat) (dog) hair and dander J30.81 ; Other allergic rhinitis J30.89 ; Other chronic allergic conjunctivitis H10.45 ; Dysphagia, unspecified R13.10 and Allergy status to penicillin Z88.0 [facility] [place] [address] [place] [address] 08/30/2024 Sharon Cervantes Idiopathic urticaria L50.1 ; Dizziness and giddiness R42 ; Chronic cough R05.3 ; Influenza due to identified novel influenza A virus with other respiratory manifestations J09.X2 ; Allergic rhinitis due to pollen J30.1 ; Allergic rhinitis due to animal (cat) (dog) hair and dander J30.81 ; Other allergic rhinitis J30.89 ; Other chronic allergic conjunctivitis H10.45 ; Dysphagia, unspecified R13.10 and Allergy status to penicillin Z88.[address] [address] 08/31/2024 Vannessa Young Idiopathic urticaria L50.1 ; Tachycardia, unspecified R00.0 ; Chronic cough R05.3 ; Allergic rhinitis due to pollen J30.1 ; Allergic rhinitis due to animal (cat) (dog) hair and dander J30.81 ; Other allergic rhinitis J30.89 ; Other chronic allergic conjunctivitis H10.45 ; Dysphagia, unspecified R13.10 and Allergy status to penicillin Z88.[address] [address] 11/21/2023 Vannessa Hernandez Allergic rhinitis du e to pollen J30.[address] [address] 12/15/2023 Vannessa Hernandez Idiopathic urticaria L50.[address] [address] 05/28/2024 Vannessa Hernandez [address] [address] 06/02/2024 Vannessa Hernandez [address] [phone] 07/03/2024 [facility]annessa [facility] [address] [address] 07/31/2024 Vannessa Hernandez Chronic cough R05.3 and Idiopathic urticaria L50.[address] [address] 08/31/2024 [facility]annessa [facility] [address] [address] 12/10/2023 Vannessa Hernandez Assessments Encounter Date Diagnosis (ICD Code) Assessment Notes Treatment Notes Treatment Clinical Notes Section Notes 10/04/2023 Allergic rhinitis due to pollen (ICD-10 - J30.1) 10/11/2023 Allergic rhinitis due to pollen (ICD-10 - J30.1) 10/14/2023 Allergic rhinitis due to pollen (ICD-10 - J30.1) 10/25/2023 Allergic rhinitis due to pollen (ICD-10 - J30.1) 10/07/2023 Other Urticaria (ICD-10 - L50.8) 11/03/2023 Allergic rhinitis due to pollen (ICD-10 - J30.1) 11/04/2023 Idiopathic urticaria (ICD-10 - L50.1) Ivana has been experiencing red, raised, pruritic welts on her hands and feet that have been occurring >6 weeks. There are no clear triggers, reports worse symptoms with stress and temperature change, individual welts come and go within hours. She was given steroids recently and hives returned. Doing better since starting Xolair. -No interval joint pain, abdominal pain, or feeling run down - occurred after her first dose. Watch for fever/rash/joint pain cascade concerning for serum sickness - Labs recently checked for underlying thyroid, autoimmune, and thyroid disorders - work-up normal except for low level TPO ab. Recommend folllowing thyroid function with PCP. Ivana reports she has been working with her PCP in regards to this. - Ivana has seen a clear benefit on shots. No hives in months! She was educated regarding the risks/benefits/alt ernatives to Xolair. AIE due to 'boxed warning' for anaphylaxis as well as risk for malignancy and CV disease. -Dosing today tolerated w/o rxn - Return in 4 weeks for Xolair dosing 11/04/2023 Chronic cough (ICD-10 - R05.3) Ivana initially presented with occasional cough and shortness of breath, was carrying a rescue inhaler at that time. Reports history of childhood asthma. - Spirometry was obtained Ivana's initial visit showing decreased FEV1, FVC and normal FEV1%, s/p AUREA showed 9% or 200 cc change. Breo trial was started with benefit but still having weekly symptoms. Stepped up to Trelegy. Spirometry last visit with borderline FEV1 and FVC. - Continue Trelegy for a few months. Likely will see added benefit with Xolair on board. Plan to step down to Breo eventually. Ivana reports decreased nighttime symptoms and less UAREA use since starting Trelegy. - Follow-up in one month as above 11/09/2023 Allergic rhinitis due to pollen (ICD-10 - J30.1) 11/17/2023 Allergic rhinitis due to pollen (ICD-10 - J30.1) 11/20/2023 Idiopathic urticaria (ICD-10 - L50.1) 11/24/2023 Allergic rhinitis due to pollen (ICD-10 - J30.1) 11/20/2023 Chronic cough (ICD-10 - R05.3) 11/21/2023 Allergic rhinitis due to pollen (ICD-10 - J30.1) 12/06/2023 Allergic rhinitis due to pollen (ICD-10 - J30.1) 12/02/2023 Other Urticaria (ICD-10 - L50.8) 12/15/2023 Allergic rhinitis due to pollen (ICD-10 - J30.1) 12/15/2023 Idiopathic urticaria (ICD-10 - L50.1) 12/22/2023 Allergic rhinitis due to pollen (ICD-10 - J30.1) 01/05/2024 Allergic rhinitis due to pollen (ICD-10 - J30.1) 01/12/2024 Allergic rhinitis due to pollen (ICD-10 - J30.1) 01/19/2024 Allergic rhinitis due to pollen (ICD-10 - J30.1) 01/25/2024 Allergic rhinitis due to pollen (ICD-10 - J30.1) 01/03/2024 Other Urticaria (ICD-10 - L50.8) 02/01/2024 Allergic rhinitis due to pollen (ICD-10 - J30.1) 02/03/2024 Idiopathic urticaria (ICD-10 - L50.1) Ivana has been experiencing red, raised, pruritic welts on her hands and feet that have been occurring >6 weeks. There are no clear triggers, reports worse symptoms with stress and temperature change, individual welts come and go within hours. She was given steroids recently and hives returned. Doing better since starting Xolair. -No interval joint pain, abdominal pain, or feeling run down - occurred after her first dose. Watch for fever/rash/joint pain cascade concerning for serum sickness - Labs recently checked for underlying thyroid, autoimmune, and thyroid disorders - work-up normal except for low level TPO ab. Recommend folllowing thyroid function with PCP. Ivana reports she has been working with her PCP in regards to this. - Ivana has seen a clear benefit on shots. No hives in months! She was educated regarding the risks/benefits/alt ernatives to Xolair. AIE due to 'boxed warning' for anaphylaxis as well as risk for malignancy and CV disease. -Dosing today tolerated w/o rxn - Return in 4 weeks for Xolair dosing 02/03/2024 Chronic cough (ICD-10 - R05.3) Ivana initially presented with occasional cough and shortness of breath, was carrying a rescue inhaler at that time. Reports history of childhood asthma. - Spirometry was obtained Ivana's initial visit showing decreased FEV1, FVC and normal FEV1%, s/p AUREA showed 9% or 200 cc change. Breo trial was started with benefit but still having weekly symptoms. Stepped up to Trelegy. Spirometry last visit with borderline FEV1 and FVC. - Continue Trelegy for a few months. Likely will see added benefit with Xolair on board. Plan to step down to Breo eventually. Ivana reports decreased nighttime symptoms and less AUREA use since starting Trelegy. - REecommend spriometry at follow-up -Needs annual flu shot this Fall 02/10/2024 Allergic rhinitis due to pollen (ICD-10 - J30.1) 02/16/2024 Allergic rhinitis due to pollen (ICD-10 - J30.1) 02/24/2024 Allergic rhinitis due to pollen (ICD-10 - J30.1) 03/02/2024 Other Urticaria (ICD-10 - L50.8) 03/09/2024 Allergic rhinitis due to pollen (ICD-10 - J30.1) 03/23/2024 Allergic rhinitis due to pollen (ICD-10 - J30.1) 03/30/2024 Other Urticaria (ICD-10 - L50.8) 04/05/2024 Allergic rhinitis due to pollen (ICD-10 - J30.1) 04/27/2024 Other Urticaria (ICD-10 - L50.8) 05/02/2024 Allergic rhinitis due to pollen (ICD-10 - J30.1) 05/17/2024 Allergic rhinitis due to pollen (ICD-10 - J30.1) 06/05/2024 Idiopathic urticaria (ICD-10 - L50.1) Ivana has been experiencing red, raised, pruritic welts on her hands and feet that have been occurring > 6 weeks. There are no clear triggers, reports worse symptoms with stress and temperature change, individual welts come and go within hours. Continues to do well since staring XOLAIR. - No interval joint pain, abdominal pain, or feeling run down - occurred after her first dose. Watch for fever/rash/joint pain cascade concerning for serum sickness. Ivana again denies symptoms. - Labs checked for underlying thyroid, autoimmune, and thyroid disorders - Work-up returned normal except for low level TPO ab. Recommend following thyroid function with PCP. Ivana reports she has been working with her PCP in regard to this. - Ivana has seen a clear benefit on shots. She again returns without hive breakthrough. She was educated regarding the risks/benefits/alt ernatives to Xolair. AIE due to 'boxed warning' for anaphylaxis as well as risk for malignancy and CV disease. - Dosing today tolerated without issue. - Return in 4 weeks for Xolair dosing and in 8 weeks for further evaluation and management 06/05/2024 Chronic cough (ICD-10 - R05.3) Ivana initially presented with occasional cough and shortness of breath, was carrying a rescue inhaler at that time. Reports history of childhood asthma. - Spirometry was obtained Ivana's initial visit showing decreased FEV1, FVC and normal FEV1%, s/p AUREA showed 9% or 200 cc change. Breo trial was started with benefit but still having weekly symptoms. Stepped up to Trelegy. Spirometry last visit with borderline FEV1 and FVC. - Continue Trelegy for a few months. Likely will see added benefit with Xolair on board. Plan to step down to Breo eventually. Ivana reports decreased nighttime symptoms and less AUREA use since starting Trelegy. - Discussed spirometry today, however Ivana was diagnosed a few days ago with influenza A. Due to this, deferred spirometry, plan to obtain next visit. - Follow-up in 8 weeks for repeat spirometry 06/15/2024 Allergic rhinitis due to pollen (ICD-10 - J30.1) 07/05/2024 Allergic rhinitis due to pollen (ICD-10 - J30.1) 07/31/2024 Chronic cough (ICD-10 - R05.3) 08/02/2024 Allergic rhinitis due to pollen (ICD-10 - J30.1) 08/03/2024 Idiopathic urticaria (ICD-10 - L50.1) Ivana has been experiencing red, raised, pruritic welts on her hands and feet that have been occurring > 6 weeks. There are no clear triggers, reports worse symptoms with stress and temperature change, individual welts come and go within hours. Continues to do well since staring XOLAIR. - No interval joint pain, abdominal pain, or feeling run down - occurred after her first dose. Watch for fever/rash/joint pain cascade concerning for serum sickness. Ivana again denies symptoms. - Labs checked for underlying thyroid, autoimmune, and thyroid disorders - Work-up returned normal except for low level TPO ab. Recommend following thyroid function with PCP. Ivana reports she has been working with her PCP in regard to this. - Ivana has seen a clear benefit on shots. She again returns without hive breakthrough. She was educated regarding the risks/benefits/alt ernatives to Xolair. AIE due to 'boxed warning' for anaphylaxis as well as risk for malignancy and CV disease. - Dosing today tolerated without issue. - Discussed reducing PO meds in the next 6 months if tolerated - Return in 4 weeks for Xolair dosing and in 8 weeks for further evaluation and management 08/03/2024 Chronic cough (ICD-10 - R05.3) Ivana initially presented with occasional cough and shortness of breath, was carrying a rescue inhaler at that time. Reports history of childhood asthma. - Spirometry was obtained Ivana's initial visit showing decreased FEV1, FVC and normal FEV1%, s/p AUREA showed 9% or 200 cc change. Breo trial was started with benefit but still having weekly symptoms. Stepped up to Trelegy. Spirometry today suggestive of restriction but TLC notmeasured. - Continue Trelegy for a few months. Likely will see added benefit with Xolair on board. Plan to step down to Breo eventually. Ivana reports decreased nighttime symptoms and less AUREA use since starting Trelegy. 08/30/2024 Idiopathic urticaria (ICD-10 - L50.1) Ivana has been experiencing red, raised, pruritic welts on her hands and feet that have been occurring > 6 weeks. There are no clear triggers, reports worse symptoms with stress and temperature change, individual welts come and go within hours. Continues to do well since staring XOLAIR. - No interval joint pain, abdominal pain, or feeling run down - occurred after her first dose. Watch for fever/rash/joint pain cascade concerning for serum sickness. Ivana again denies symptoms. - Labs checked for underlying thyroid, autoimmune, and thyroid disorders - Work-up returned normal except for low level TPO ab. Recommend following thyroid function with PCP. Ivana reports she has been working with her PCP in regard to this. - Ivana has seen a clear benefit on shots. She again returns without hive breakthrough. She was educated regarding the risks/benefits/alt ernatives to Xolair. AIE due to 'boxed warning' for anaphylaxis as well as risk for malignancy and CV disease. - Dosing to be received tomorrow. - Discussed reducing PO meds in the next 6 months if tolerated - Return in tomorrow for Xolair dosing 08/30/2024 Dizziness and giddiness (ICD-10 - R42) Patient reported dizziness and lightheadedness approximately 3-5 minutes after SCIT injection. She was immedaitely given Zyrtec, Pepcid and SIngulair and brought to examination room where she was monitored for over 1 hour. She reported flushing and tachycardia. Flushing not noted on exam. No evidence of large locals, respiratory symptoms, hives or swelling. Symptoms improved after lying down for over 30 minutes and drinking water. Per Ivana, these are the symptoms she experiences with POTS flares. Spouse presented to appointment. She was discharged in stable condition. - Patient states POTS symptoms are improved with Xolair and she is due for Xolair tomorrow. She feels her symptoms are more pronounced as her Xolair has worn off. Consider SCIT dosing after Xolair dosing. 08/31/2024 Idiopathic urticaria (ICD-10 - L50.1) Ivana has a hisotry of red, raised, pruritic welts on her hands and feet that have been occurring > 6 weeks. There are no clear triggers, reports worse symptoms with stress and temperature change, individual welts come and go within hours. Continues to do well since staring XOLAIR. - No interval joint pain, abdominal pain, or feeling run down - occurred after her first dose. Watch for fever/rash/joint pain cascade concerning for serum sickness. Ivana again denies symptoms. - Labs checked for underlying thyroid, autoimmune, and thyroid disorders - Work-up returned normal except for low level TPO ab. Recommend following thyroid function with PCP. Ivana reports she has been working with her PCP in regard to this. She would to have a stat tryptase sent in the event she has a flare. She feels she has a lot of symptoms of MCAS. - Ivana has seen a clear benefit on shots. She again returns without hive breakthrough. She was educated regarding the risks/benefits/alt ernatives to Xolair. AIE due to 'boxed warning' for anaphylaxis as well as risk for malignancy and CV disease. - Dosing today tolerated without issue. - Discussed reducing PO meds in the next 6 months if tolerated - Return in 4 weeks for Xolair dosing and in 8 weeks for further evaluation and management 08/31/2024 Tachycardia, unspecified (ICD-10 - R00.0) Recent tachycardia with dizziness and flushing which she has experienced with POTS flares. She has experienced symptoms several times after shots. No large locals, respiratory symptoms, hives, or swelling. -Followed by Cardiology recommend f/u to discuss options -Interested in changing her shots to after Xolair as she feels this helps her POTS symptoms 08/30/2024 Chronic cough (ICD-10 - R05.3) Ivana initially presented with occasional cough and shortness of breath, was carrying a rescue inhaler at that time. Reports history of childhood asthma. - Spirometry was obtained Ivana's initial visit showing decreased FEV1, FVC and normal FEV1%, s/p AUREA showed 9% or 200 cc change. Breo trial was started with benefit but still having weekly symptoms. Stepped up to Trelegy. - Continue Trelegy for a few months. Likely will see added benefit with Xolair on board. Plan to step down to Breo eventually. Ivana reports decreased nighttime symptoms and less AUREA use since starting Trelegy. 08/31/2024 Chronic cough (ICD-10 - R05.3) Ivana initially presented with occasional cough and shortness of breath, was carrying a rescue inhaler at that time. Reports history of childhood asthma. - Spirometry was obtained Ivana's initial visit showing decreased FEV1, FVC and normal FEV1%, s/p AUREA showed 9% or 200 cc change. Breo trial was started with benefit but still having weekly symptoms. Stepped up to Trelegy. Spirometry last visit suggestive of restriction but TLC notmeasured. - Continue Trelegy for a few months. Likely will see added benefit with Xolair on board. Plan to step down to Breo eventually. Ivana reports decreased nighttime symptoms and less AUREA use since starting Trelegy. 08/02/2024 Allergic rhinitis due to animal (cat) (dog) hair and dander (ICD-10 - J30.81) 08/03/2024 Influenza due to identified novel influenza A virus with other respiratory manifestations (ICD-10 - J09.X2) Ivana was seen in the ER a few days ago and tested positive for influenza A. She reports her partner was having worse symptoms, which is why she was in the ER. She opted for testing once there. She reports increased cough and mild shortness of breath, however feels these symptoms are improving. She is using her rescue inhaler a handful of times per day. She denies fevers. - Spirometry deferred today, plan to obtain next visit. - Lungs clear to auscultation on PE. - Will start ipratropium bromide due to nasal drainage. - Continue Trelegy. Continue AUREA as-needed per AAP. - Instructed Ivana to contact the office with worsening symptoms 07/31/2024 Idiopathic urticaria (ICD-10 - L50.1) 07/05/2024 Allergic rhinitis due to animal (cat) (dog) hair and dander (ICD-10 - J30.81) 06/15/2024 Allergic rhinitis due to animal (cat) (dog) hair and dander (ICD-10 - J30.81) 06/05/2024 Influenza due to identified novel influenza A virus with other respiratory manifestations (ICD-10 - J09.X2) Ivana was seen in the ER a few days ago and tested positive for influenza A. She reports her partner was having worse symptoms, which is why she was in the ER. She opted for testing once there. She reports increased cough and mild shortness of breath, however feels these symptoms are improving. She is using her rescue inhaler a handful of times per day. She denies fevers. - Spirometry deferred today, plan to obtain next visit. - Lungs clear to auscultation on PE. - Will start ipratropium bromide due to nasal drainage. - Continue Trelegy. Continue AUREA as-needed per AAP. - Instructed Ivana to contact the office with worsening symptoms 05/17/2024 Allergic rhinitis due to animal (cat) (dog) hair and dander (ICD-10 - J30.81) 05/02/2024 Allergic rhinitis due to animal (cat) (dog) hair and dander (ICD-10 - J30.81) 04/05/2024 Allergic rhinitis due to animal (cat) (dog) hair and dander (ICD-10 - J30.81) 03/23/2024 Allergic rhinitis due to animal (cat) (dog) hair and dander (ICD-10 - J30.81) 03/09/2024 Allergic rhinitis due to animal (cat) (dog) hair and dander (ICD-10 - J30.81) 02/24/2024 Allergic rhinitis due to animal (cat) (dog) hair and dander (ICD-10 - J30.81) 02/16/2024 Allergic rhinitis due to animal (cat) (dog) hair and dander (ICD-10 - J30.81) 02/10/2024 Allergic rhinitis due to animal (cat) (dog) hair and dander (ICD-10 - J30.81) 02/03/2024 Allergic rhinitis due to pollen (ICD-10 - J30.1) Ivana clearly suffers from atopic disease based upon our skin testing and clinical history. Accordingly, we have introduced a new, aggressive medication regimen, discussed nasal washes and allergy-specific avoidance measures. She continues weekly titration of SCIT -due to recent reaction recommend reducing dosing and triple pre-medication -discussed additional titration later this fall02/01/2024 Allergic rhinitis due to animal (cat) (dog) hair and dander (ICD-10 - J30.81) 01/25/2024 Allergic rhinitis due to animal (cat) (dog) hair and dander (ICD-10 - J30.81) 01/19/2024 Allergic rhinitis due to animal (cat) (dog) hair and dander (ICD-10 - J30.81) 01/12/2024 Allergic rhinitis due to animal (cat) (dog) hair and dander (ICD-10 - J30.81) 01/05/2024 Allergic rhinitis due to animal (cat) (dog) hair and dander (ICD-10 - J30.81) 12/22/2023 Allergic rhinitis due to animal (cat) (dog) hair and dander (ICD-10 - J30.81) 12/15/2023 Allergic rhinitis due to animal (cat) (dog) hair and dander (ICD-10 - J30.81) 12/06/2023 Allergic rhinitis due to animal (cat) (dog) hair and dander (ICD-10 - J30.81) 11/24/2023 Allergic rhinitis due to animal (cat) (dog) hair and dander (ICD-10 - J30.81) 11/20/2023 Allergic rhinitis due to pollen (ICD-10 - J30.1) 11/17/2023 Allergic rhinitis due to animal (cat) (dog) hair and dander (ICD-10 - J30.81) 11/09/2023 Allergic rhinitis due to animal (cat) (dog) hair and dander (ICD-10 - J30.81) 11/04/2023 Allergic rhinitis due to pollen (ICD-10 - J30.1) Ivana clearly suffers from atopic disease based upon our skin testing and clinical history. Accordingly, we have introduced a new, aggressive medication regimen, discussed nasal washes and allergy-specific avoidance measures. She continues weekly titration of SCIT 11/03/2023 Allergic rhinitis due to animal (cat) (dog) hair and dander (ICD-10 - J30.81) 10/25/2023 Allergic rhinitis due to animal (cat) (dog) hair and dander (ICD-10 - J30.81) 10/14/2023 Allergic rhinitis due to animal (cat) (dog) hair and dander (ICD-10 - J30.81) 10/11/2023 Allergic rhinitis due to animal (cat) (dog) hair and dander (ICD-10 - J30.81) 10/04/2023 Allergic rhinitis due to animal (cat) (dog) hair and dander (ICD-10 - J30.81) 10/04/2023 Other allergic rhinitis (ICD-10 - J30.89) 10/11/2023 Other allergic rhinitis (ICD-10 - J30.89) 10/14/2023 Other allergic rhinitis (ICD-10 - J30.89) 10/25/2023 Other allergic rhinitis (ICD-10 - J30.89) 11/03/2023 Other allergic rhinitis (ICD-10 - J30.89) 11/04/2023 Allergic rhinitis due to animal (cat) (dog) hair and dander (ICD-10 - J30.81) Follow allergen avoidance, meds and consider SCIT as an adjunctive treatment to current regimen 11/09/2023 Other allergic rhinitis (ICD-10 - J30.89) 11/17/2023 Other allergic rhinitis (ICD-10 - J30.89) 11/24/2023 Other allergic rhinitis (ICD-10 - J30.89) 12/06/2023 Other allergic rhinitis (ICD-10 - J30.89) 12/15/2023 Other allergic rhinitis (ICD-10 - J30.89) 12/22/2023 Other allergic rhinitis (ICD-10 - J30.89) 01/05/2024 Other allergic rhinitis (ICD-10 - J30.89) 01/12/2024 Other allergic rhinitis (ICD-10 - J30.89) 01/19/2024 Other allergic rhinitis (ICD-10 - J30.89) 01/25/2024 Other allergic rhinitis (ICD-10 - J30.89) 02/01/2024 Other allergic rhinitis (ICD-10 - J30.89) 02/03/2024 Allergic rhinitis due to animal (cat) (dog) hair and dander (ICD-10 - J30.81) Follow allergen avoidance, meds and consider SCIT as an adjunctive treatment to current regimen 02/10/2024 Other allergic rhinitis (ICD-10 - J30.89) 02/16/2024 Other allergic rhinitis (ICD-10 - J30.89) 02/24/2024 Other allergic rhinitis (ICD-10 - J30.89) 03/09/2024 Other allergic rhinitis (ICD-10 - J30.89) 03/23/2024 Other allergic rhinitis (ICD-10 - J30.89) 04/05/2024 Other allergic rhinitis (ICD-10 - J30.89) 05/02/2024 Other allergic rhinitis (ICD-10 - J30.89) 05/17/2024 Other allergic rhinitis (ICD-10 - J30.89) 06/05/2024 Allergic rhinitis due to pollen (ICD-10 - J30.1) Ivana clearly suffers from atopic disease based upon our skin testing and clinical history. Accordingly, we have encouraged her medication regimen, discussed nasal washes and allergy-specific avoidance measures. - Ivana reports now being on monthly dosing. Previously had dosing reduced due to pruritus. - Due to recent illness, recommend pushing her next SCIT dose to next week. Ivana voiced understanding. - Follow-up as above 06/15/2024 Other allergic rhinitis (ICD-10 - J30.89) 07/05/2024 Other allergic rhinitis (ICD-10 - J30.89) 08/03/2024 Allergic rhinitis due to pollen (ICD-10 - J30.1) Ivana clearly suffers from atopic disease based upon our skin testing and clinical history. Accordingly, we have encouraged her medication regimen, discussed nasal washes and allergy-specific avoidance measures. - Ivana reports now being on monthly dosing. Previously had dosing reduced due to pruritus. - Due to recent illness, recommend pushing her next SCIT dose to next week. Ivana voiced understanding. - Follow-up as above 08/02/2024 Other allergic rhinitis (ICD-10 - J30.89) 08/30/2024 Influenza due to identified novel influenza A virus with other respiratory manifestations (ICD-10 - J09.X2) Historical influenza A diagnosis with increased cough and mild shortness of breath. Resolved at this time. 08/31/2024 Allergic rhinitis due to pollen (ICD-10 - J30.1) Ivana clearly suffers from atopic disease based upon our skin testing and clinical history. Accordingly, we have encouraged her medication regimen, discussed nasal washes and allergy-specific avoidance measures. - Ivana reports now being on monthly dosing. Previously had dosing reduced due to pruritus. - Due to recent illness, recommend pushing her next SCIT dose to next week. Ivana voiced understanding. - Follow-up as above 08/31/2024 Allergic rhinitis due to animal (cat) (dog) hair and dander (ICD-10 - J30.81) Follow allergen avoidance, meds and continue SCIT as an adjunctive treatment to current regimen 08/30/2024 Allergic rhinitis due to pollen (ICD-10 - J30.1) Ivana clearly suffers from atopic disease based upon our skin testing and clinical history. Accordingly, we have encouraged her medication regimen, discussed nasal washes and allergy-specific avoidance measures. - Ivana reports now being on monthly dosing. Previously had dosing reduced due to pruritus. - Ivana reported dizziness 3-5 minutes after SCIT dosing, likely related to POTS flare. No evidence of large locals, respiratory distress, GI symptoms or hives. See above. - Consider SCIT dosing after Xolair dosing. 08/03/2024 Allergic rhinitis due to animal (cat) (dog) hair and dander (ICD-10 - J30.81) Follow allergen avoidance, meds and continue SCIT as an adjunctive treatment to current regimen 08/02/2024 Other chronic allergic conjunctivitis (ICD-10 - H10.45) 07/05/2024 Other chronic allergic conjunctivitis (ICD-10 - H10.45) 06/15/2024 Other chronic allergic conjunctivitis (ICD-10 - H10.45) 06/05/2024 Allergic rhinitis due to animal (cat) (dog) hair and dander (ICD-10 - J30.81) Follow allergen avoidance, meds and continue SCIT as an adjunctive treatment to current regimen 05/17/2024 Other chronic allergic conjunctivitis (ICD-10 - H10.45) 05/02/2024 Other chronic allergic conjunctivitis (ICD-10 - H10.45) 04/05/2024 Other chronic allergic conjunctivitis (ICD-10 - H10.45) 03/23/2024 Other chronic allergic conjunctivitis (ICD-10 - H10.45) 03/09/2024 Other chronic allergic conjunctivitis (ICD-10 - H10.45) 02/24/2024 Other chronic allergic conjunctivitis (ICD-10 - H10.45) 02/16/2024 Other chronic allergic conjunctivitis (ICD-10 - H10.45) 02/10/2024 Other chronic allergic conjunctivitis (ICD-10 - H10.45) 02/03/2024 Other allergic rhinitis (ICD-10 - J30.89) Follow allergen avoidance, meds and consider SCIT as an adjunctive treatment to current regimen 01/05/2024 Other chronic allergic conjunctivitis (ICD-10 - H10.45) 02/01/2024 Other chronic allergic conjunctivitis (ICD-10 - H10.45) 01/25/2024 Other chronic allergic conjunctivitis (ICD-10 - H10.45) 01/19/2024 Other chronic allergic conjunctivitis (ICD-10 - H10.45) 01/12/2024 Other chronic allergic conjunctivitis (ICD-10 - H10.45) 12/22/2023 Other chronic allergic conjunctivitis (ICD-10 - H10.45) 12/06/2023 Other chronic allergic conjunctivitis (ICD-10 - H10.45) 12/15/2023 Other chronic allergic conjunctivitis (ICD-10 - H10.45) 11/24/2023 Other chronic allergic conjunctivitis (ICD-10 - H10.45) 11/17/2023 Other chronic allergic conjunctivitis (ICD-10 - H10.45) 11/09/2023 Other chronic allergic conjunctivitis (ICD-10 - H10.45) 11/04/2023 Other allergic rhinitis (ICD-10 - J30.89) Follow allergen avoidance, meds and consider SCIT as an adjunctive treatment to current regimen 10/11/2023 Other chronic allergic conjunctivitis (ICD-10 - H10.45) 11/03/2023 Other chronic allergic conjunctivitis (ICD-10 - H10.45) 10/25/2023 Other chronic allergic conjunctivitis (ICD-10 - H10.45) 10/14/2023 Other chronic allergic conjunctivitis (ICD-10 - H10.45) 10/04/2023 Other chronic allergic conjunctivitis (ICD-10 - H10.45) 11/04/2023 Other chronic allergic conjunctivitis (ICD-10 - H10.45) Given ocular signs and symptoms I encouraged allergy avoidance measures and meds as above. If symptoms persist, consider adding additional medications including intraocular antihistamine/mast cell stabilizer, PRN and consider SCIT as an adjunctive measure 02/03/2024 Other chronic allergic conjunctivitis (ICD-10 - H10.45) Given ocular signs and symptoms I encouraged allergy avoidance measures and meds as above. If symptoms persist, consider adding additional medications including intraocular antihistamine/mast cell stabilizer, PRN and consider SCIT as an adjunctive measure 06/05/2024 Other allergic rhinitis (ICD-10 - J30.89) Follow allergen avoidance, meds and continue SCIT as an adjunctive treatment to current regimen 08/03/2024 Other allergic rhinitis (ICD-10 - J30.89) Follow allergen avoidance, meds and continue SCIT as an adjunctive treatment to current regimen 08/31/2024 Other allergic rhinitis (ICD-10 - J30.89) Follow allergen avoidance, meds and continue SCIT as an adjunctive treatment to current regimen 08/30/2024 Allergic rhinitis due to animal (cat) (dog) hair and dander (ICD-10 - J30.81) Follow allergen avoidance, meds and continue SCIT as an adjunctive treatment to current regimen 08/31/2024 Other chronic allergic conjunctivitis (ICD-10 - H10.45) Given ocular signs and symptoms I encouraged allergy avoidance measures and meds as above. If symptoms persist, consider adding additional medications including intraocular antihistamine/mast cell stabilizer, PRN and continue SCIT as an adjunctive measure 08/03/2024 Other chronic allergic conjunctivitis (ICD-10 - H10.45) Given ocular signs and symptoms I encouraged allergy avoidance measures and meds as above. If symptoms persist, consider adding additional medications including intraocular antihistamine/mast cell stabilizer, PRN and continue SCIT as an adjunctive measure 08/30/2024 Other allergic rhinitis (ICD-10 - J30.89) Follow allergen avoidance, meds and continue SCIT as an adjunctive treatment to current regimen 06/05/2024 Other chronic allergic conjunctivitis (ICD-10 - H10.45) Given ocular signs and symptoms I encouraged allergy avoidance measures and meds as above. If symptoms persist, consider adding additional medications including intraocular antihistamine/mast cell stabilizer, PRN and continue SCIT as an adjunctive measure 02/03/2024 Dysphagia, unspecified (ICD-10 - R13.10) Ivana reports chronic dysphagia, two recent episodes of food sticking with chicken, one also included possible throat swelling where she stopped eating, took Benadryl, and went to the ER where she was treated with additional antihistamines and steroids. Denies associated systemic symptoms including swelling, lower respiratory or GI symptoms. Now carries an AIE at all times. Has eaten chicken since this episode without issue. Ivana endorses frequent food/pill sticking, recalls these symptoms as a child. Given atopy as above and history, Ivana's symptoms are concerning for eosinophilic esophagitis, will order CBC as above for further assessment. Recent EGD was normal but requested for review. Per patient she had gastritis - contines to have infrequent food sticking so recommend GI evaluaiton to discuss reflux meds 11/04/2023 Dysphagia, unspecified (ICD-10 - R13.10) Ivana reports chronic dysphagia, two recent episodes of food sticking with chicken, one also included possible throat swelling where she stopped eating, took Benadryl, and went to the ER where she was treated with additional antihistamines and steroids. Denies associated systemic symptoms including swelling, lower respiratory or GI symptoms. Now carries an AIE at all times. Has eaten chicken since this episode without issue. Ivana endorses frequent food/pill sticking, recalls these symptoms as a child. Given atopy as above and history, Ivana's symptoms are concerning for eosinophilic esophagitis, will order CBC as above for further assessment. Recent EGD was normal but requested for review. Per patient she had gastritis - contines to have infrequent food sticking so recommend GI evaluaiton to discuss reflux meds 11/04/2023 Allergy status to penicillin (ICD-10 - Z88.0) Ivana has a history of rash in childhood after taking a medication, believed to be in the cephalosporin class, has been avoidant of all PCN since. We discussed penicillin skin testing and amoxicillin challenge. She would like to be contacted for the next skin testing date. Needs to stay on hives meds for now 02/03/2024 Allergy status to penicillin (ICD-10 - Z88.0) Ivana has a history of rash in childhood after taking a medication, believed to be in the cephalosporin class, has been avoidant of all PCN since. We discussed penicillin skin testing and amoxicillin challenge. She would like to be contacted for the next skin testing date. Needs to stay on hives meds for now 06/05/2024 Dysphagia, unspecified (ICD-10 - R13.10) Ivana reports chronic dysphagia, two recent episodes of food sticking with chicken, one also included possible throat swelling where she stopped eating, took Benadryl, and went to the ER where she was treated with additional antihistamines and steroids. Denies associated systemic symptoms including swelling, lower respiratory or GI symptoms. Now carries an AIE at all times. Has eaten chicken since this episode without issue. Ivana endorses frequent food/pill sticking, recalls these symptoms as a child. Given atopy as above and history, Ivana's symptoms are concerning for eosinophilic esophagitis, will order CBC as above for further assessment. Recent EGD was normal but requested for review. Per patient she had gastritis - contines to have infrequent food sticking so recommend GI evaluaiton to discuss reflux meds 08/03/2024 Dysphagia, unspecified (ICD-10 - R13.10) Ivana reports chronic dysphagia, two recent episodes of food sticking with chicken, one also included possible throat swelling where she stopped eating, took Benadryl, and went to the ER where she was treated with additional antihistamines and steroids. Denies associated systemic symptoms including swelling, lower respiratory or GI symptoms. Now carries an AIE at all times. Has eaten chicken since this episode without issue. Ivana endorses frequent food/pill sticking, recalls these symptoms as a child. Given atopy as above and history, Ivana's symptoms are concerning for eosinophilic esophagitis, will order CBC as above for further assessment. Recent EGD was normal but requested for review. Per patient she had gastritis - contines to have infrequent food sticking so recommend GI evaluaiton to discuss reflux meds 08/30/2024 Other chronic allergic conjunctivitis (ICD-10 - H10.45) Given ocular signs and symptoms I encouraged allergy avoidance measures and meds as above. If symptoms persist, consider adding additional medications including intraocular antihistamine/mast cell stabilizer, PRN and continue SCIT as an adjunctive measure 08/31/2024 Dysphagia, unspecified (ICD-10 - R13.10) Ivana reports chronic dysphagia, two recent episodes of food sticking with chicken, one also included possible throat swelling where she stopped eating, took Benadryl, and went to the ER where she was treated with additional antihistamines and steroids. Denies associated systemic symptoms including swelling, lower respiratory or GI symptoms. Now carries an AIE at all times. Has eaten chicken since this episode without issue. Ivana endorses frequent food/pill sticking, recalls these symptoms as a child. Given atopy as above and history, Ivana's symptoms are concerning for eosinophilic esophagitis, will order CBC as above for further assessment. Recent EGD was normal but requested for review. Per patient she had gastritis - contines to have infrequent food sticking so recommend GI evaluaiton to discuss reflux meds 08/31/2024 Allergy status to penicillin (ICD-10 - Z88.0) Ivana has a history of rash in childhood after taking a medication, believed to be in the cephalosporin class, has been avoidant of all PCN since. We discussed penicillin skin testing and amoxicillin challenge. She would like to be contacted for the next skin testing date. Needs to stay on hives meds for now 08/30/2024 Dysphagia, unspecified (ICD-10 - R13.10) Ivana reports chronic dysphagia, two recent episodes of food sticking with chicken, one also included possible throat swelling where she stopped eating, took Benadryl, and went to the ER where she was treated with additional antihistamines and steroids. Denies associated systemic symptoms including swelling, lower respiratory or GI symptoms. Now carries an AIE at all times. Has eaten chicken since this episode without issue. Ivana endorses frequent food/pill sticking, recalls these symptoms as a child. Given atopy as above and history, Ivana's symptoms are concerning for eosinophilic esophagitis. Recent EGD was normal but requested for review. Per patient she had gastritis - contines to have infrequent food sticking so recommend GI evaluation to discuss reflux meds 08/03/2024 Allergy status to penicillin (ICD-10 - Z88.0) Ivana has a history of rash in childhood after taking a medication, believed to be in the cephalosporin class, has been avoidant of all PCN since. We discussed penicillin skin testing and amoxicillin challenge. She would like to be contacted for the next skin testing date. Needs to stay on hives meds for now 06/05/2024 Allergy status to penicillin (ICD-10 - Z88.0) Ivana has a history of rash in childhood after taking a medication, believed to be in the cephalosporin class, has been avoidant of all PCN since. We discussed penicillin skin testing and amoxicillin challenge. She would like to be contacted for the next skin testing date. Needs to stay on hives meds for now 08/30/2024 Allergy status to penicillin (ICD-10 - Z88.0) Ivana has a history of rash in childhood after taking a medication, believed to be in the cephalosporin class, has been avoidant of all PCN since. We discussed penicillin skin testing and amoxicillin challenge. She would like to be contacted for the next skin testing date. Needs to stay on hives meds for now 07/06/2024 Other 10/07/2023 Other 11/04/2023 Other 12/02/2023 Other 01/03/2024 Other 02/03/2024 Other 03/02/2024 Other 03/30/2024 Other 04/27/2024 Other 06/05/2024 Other 08/03/2024 Other 08/30/2024 Other 08/31/2024 Other Plan Of Treatment Pending Test Test Name Order Date -Tryptase ([id number]) 08/31/2024 Next Appt Details Provider Name:Eulalio Nunez , 09/28/2024 04:00:00 PM, [address], [address], [place], [address], Provider Name:Eulalio Nunez , 10/02/2024 04:10:00 PM, [address], [place], [address], Insurance Providers Payer Name Payer Address Payer Phone Subscriber Number Group Number Insured Name Patient Relationship to Insured Coverage Start Date Coverage End Date [employer] [address] [place] [id number] Ivana Fitzgerald Self - patient is the insured [employer] [address] [place] [id number] Ivana Fitzgerald Self - patient is the insured Medical (General) History Medical History History ICD Code Postural orthostatic tachycardia syndrom e [POTS] G90.A Anxiety disorder, unspecified F41.9 Surgical History Surgery Date(Month/Year) Cystectomy 1985 Adenoidectomy & Tympanostomy tubes 1990 D&C 2009 Cervical ablation 2021 Hospitalization History Reason Date(Month/Year) POTS 1999
--- OUTSIDE RECORDS SUMMARY | 2024-09-25 17:29 | XMS_ITS | Clinical Summary ---
Author Organization [address] lto Address [address] [place] [address] Care Team Providers Care Plodder Operator Name Role Phone Jackie Neal MD Unavailable [phone] Fabian Anderson MD Primary Care Provider [phone] Allergies Active Allergy Reactions Criticality Noted Date [...] 01/21/2022 POTS (postural orthostatic tachycardia syndrome) 11/19/2011 Encounters Date Type Department Care Team Description 08/31/2024 Telephone [facility] Medical [facility] Cardiology [address] [place] [phone] Cachorro Graham MD 08/03/2024 3:45 PM FLOORMAN Office Visit [facility] Cardiology [address] [place] [address] [address] [place] [phone] Cachorro Graham MD POTS (postural orthostatic tachycardia syndrome) (Primary Dx) 07/26/2024 Telephone [facility] Medical [facility] Cardiology [address] [place] [phone] Cachorro Graham MD from Last 3 Months Immunizations Immunization Administration Dates Next Due Influenza, Trivalent, IM (MDV) 07/07/2013 Medical History Medical History Date Comments POTS (postural orthostatic tachycardia syndrome) 11/19/2011 Asthma 01/21/2022 Anxiety Family History Medical History Relation Name Comments No Known Problems Father Colon cancer Mother Relation Name Status Comments Father Alive Mother Social History Tobacco Use Types Packs/Day [...] on file Legal Sex Female 4:45 AM FLOORMAN Gender Identity Not on file Sexual Orientation Not on file Obstetrics History Last Filed Vital Signs Vital Sign [place] Time Taken Comments Blood Pressure 130/74 08/03/2024 3:26 PM FLOORMAN Pulse 87 08/03/2024 3:26 PM FLOORMAN Temperature 37 C (98.6 F) 06/02/2024 9:31 AM FLOORMAN Respiratory Rate 18 06/02/2024 9:31 AM FLOORMAN Oxygen Saturation 99% 08/03/2024 3:26 PM FLOORMAN Inhaled Oxygen Concentration - - Weight 104.8 kg (231 lb) 08/03/2024 3:26 PM FLOORMAN Height 171.5 cm (5' 7.5 ) 08/03/2024 3:26 PM FLOORMAN Body Mass Index 35.65 08/03/2024 3:26 PM FLOORMAN Plan of Treatment Health Maintenance Due Date Last Done Comments Breast Cancer Screening-Mammogram 1983 Cervical Cancer Screening 1983 Depression Screening 1983 Hepatitis C Screening 1983 DTaP/Tdap/Td Vaccine (1 - Tdap) 12/18/1994 Varicella Vaccines (1 of 2 - 13+ 2-dose series) 12/18/1996 Hepatitis B Screening 12/18/2001 Regular Well Visit/Exam 18-64 12/18/2001 Pneumococcal vaccine <65 (1 of 2 - PCV) 12/18/2002 Influenza Vaccine (Season Ended) 2025 04/02/2022, 07/07/2013 HPV Vaccines Aged Out No longer eligi ble based on patient's age to complete this topic Insurance [facility] CHOICE PLUS CHOICE PLUS [employer] Care Teams Plodder Operator Relationship Specialty Start Date End Date Fabian Anderson MD [address] [address] PCP - General Internal Medicine 08/03/24 [place] [address] 01/05/22
--- OUTSIDE RECORDS SUMMARY | 2024-09-25 17:29 | XMS_ITS ---
Author Organization [facility] [employer] [place] ([address]) Address [address] [place] [address] Care Team Providers Care Plate Glass Polisher Name Role Phone Fabian Anderson Primary Care Provider UnavailVannessa Cope Unavailable [phone] White Jackie Unavailable Unavailable Allergies Allergen (clinical drug ingredient) Drug/Non Drug Allergy documented on EMR Reaction Allergy Type Onset Date Status CECLOR (uncoded) hives Allergy Act ángela REASON FOR VISIT ARC follow-up - Continues immunotherapy. Developed facial flushing, dizziness, BP meds after shots yesterday. Chancellor it was due to her POTS. Followed by Router Machine Operator Dr. Mello., Hives follow-up - Continues doing well without breakthrough symptoms. No longer having joint pain after Xolair dosing. Behind on dosing due to insurance., Occasional shortness of breath and cough, carries rescue inhaler with use once per month, no history of controller use, reports childhood asthma. Stepped up from Breo to Trelegy with benefit., Episode of throat tightness that occurred while eating a chicken wing, treated with antihistamines and steroids at the ER, has ate chicken since, no prior history of reactions, carries AIE. EGD was normal except for gastritis. Reintroduced chicken w/o issues. Eating unrestricted diet other than dairy (lactose intolerance) Medications Medication SIG (Take, Route, Frequency, Duration) Notes Start Date End Date Status predniSONE 20 MG 1 tab(s) orally bid for 5 day(s) 12/15/2022 Not-Taking Trelegy Ellipta 200 MCG-62.5 MCG-25 MCG/INH 1 PUFF(S) INHALED ONCE A DAY for 30 DAYS *Please review and pick correct strength-formula tion from [employer] options. If intended option is not shown, discontinue and re-order from Quick Search* Not-Taking OLOPATADINE HYDROCHLORIDE 665 MCG/INH 2 SPRAY(S) INTRANASALLY 2 TIMES A DAY for 90 DAYS *Please review for potential replacement for e-prescription and drug interaction check* Not-Taking PREDNISONE 20 mg 1 tab(s) orally bid for 5 day(s) 12/15/2022 Not-Taking TRELEGY ELLIPTA 200 mcg-62.5 mcg-25 mcg/inh 1 puff(s) inhaled once a day for 30 days Not-Taking UBRELVY 100 mg 1 tab(s) orally once Not-Taking TRELEGY ELLIPTA 200 mcg-62.5 mcg-25 mcg/inh 1 puff(s) inhaled once a day for 30 days Not-Taking ALBUTEROL CFC free 90 mcg/inh 2-4 puff(s) with spacer inhaled QID, PRN per asthma action plan Not-Taking FLUTICASONE NASAL 50 mcg/inh 2 spray(s) in each nostril BID for 30 days Not-Taking PEPCID 20 mg 1 tab(s) orally 2 times a day for 30 days Not-Taking PEPCID 20 mg 1 tab(s) orally 2 times a day Not-Taking MONTELUKAST 10 mg 1 tab(s) orally once a day for 30 day(s) Not-Taking Montelukast Sodium 10 MG 1 tab(s) orally once a day for 30 days Not-Taking ZyrTEC Allergy 10 MG 1 tablet Orally Once a day for 90 days Active Trelegy Ellipta 200-62.5-25 MCG/ACT INHALE 1 PUFF ONCE DAILY for 30 Not-Taking Corlanor 5 MG 1 tab(s) orally 2 times a day (with meals) Active Albuterol Sulfate HFA 108 (90 Base) MCG/ACT 2-4 puff(s) with spacer inhaled QID, PRN per asthma action plan for 30 days Active Olopatadine HCl 0.6 % 2 sprays in each nostril Nasally Twice a day for 30 days 11/21/2023 Active Ubrelvy 100 MG 1 tab(s) orally once Active Xolair 150 MG 300 mg subcutaneously every 4 weeks for 30 day(s) Active busPIRone HCl 15 MG 1 tab(s) orally 2 times a day Active Fluticasone Propionate 50 MCG/ACT 2 spray(s) in each nostril BID for 30 days Active Montelukast Sodium 10 MG 1 tab(s) orally once a day for 30 days Active Trelegy Ellipta 200 mcg-62.5 mcg-25 mcg/inh 1 puff(s) inhaled once a day for 30 days Not-Taking Olopatadine HCl 0.6 % 2 sprays in each nostril Nasally Twice a day for 90 days As needed 08/31/2024 Active Famotidine 20 MG 1 tablet Orally Twice a day for 90 days Active TRELEGY ELLIPTA 200 mcg-62.5 mcg-25 mcg/inh 1 puff(s) inhaled once a day for 30 days Active ALBUTEROL CFC free 90 mcg/inh 2-4 puff(s) with spacer inhaled QID, PRN per asthma action plan Active OLOPATADINE HYDROCHLORIDE 665 mcg/inh 2 spray(s) intranasally 2 times a day for 30 days Not-Taking Ipratropium Chandler 0.06 % 2 sprays in each nostril Nasally Three times a day for 30 days Active NASAL WASHES N/A as directed intranasally as needed for 30 Active FLUTICASONE NASAL 50 mcg/inh 2 spray(s) in each nostril BID for 30 days Active Pepcid 20 mg 1 tab(s) orally 2 times a day Not-Taking Pepcid 20 mg 1 tab(s) orally 2 times a day for 30 days Active Trelegy Ellipta 200 mcg-62.5 mcg-25 mcg/inh 1 puff(s) inhaled once a day for 30 days Active XOLAIR 150 mg 300 mg subcutaneously every 4 weeks for 30 day(s) Active MONTELUKAST 10 mg 1 tab(s) orally once a day for 30 day(s) Active ZYRTEC 10 mg 1 tab(s) orally bid for 30 days Active CORLANOR 5 mg 1 tab(s) orally 2 times a day (with meals) Active BUSPIRONE 7.5 mg 1 tab(s) orally 2 times a day Active Social History Tobacco Use: Social History Observation [...] Problem Status W/U Status Risk Notes Problem Tachycardia (9604122) Tachycardia, unspecified (R00.0) Active confirmed Problem influenza due to influenza a virus with upper respiratory signs (disorder) ([id number] 4) Influenza due to identified novel influenza A virus with other respiratory manifestations (J09.X2) Active confirmed Vital Signs Blood pressure systolic 127 mm Hg 09/01/19 25 Blood pressure diastolic 80 mm Hg 025 Respiratory Rate 17 /min 08/31/2024 Oximetry 100 % 08/31/2024 Height 66.5 in 08/31/2024 Weight 234.8 lbs 08/31/2024 BMI 37.33 kg/m2 08/31/2024 Encounters Encounter Location Date Provider Diagnosis [facility] [address] [place] [address] 08/31/2024 Vannessa Young Idiopathic urticaria L50.1 ; Tachycardia, unspecified R00.0 ; Chronic cough R05.3 ; Allergic rhinitis due to pollen J30.1 ; Allergic rhinitis due to animal (cat) (dog) hair and dander J30.81 ; Other allergic rhinitis J30.89 ; Other chronic allergic conjunctivitis H10.45 ; Dysphagia, unspecified R13.10 and Allergy status to penicillin Z88.0 Assessments Encounter Date Diagnosis (ICD Code) Assessment Notes Treatment Notes Treatment Clinical Notes Section Notes 08/31/2024 Idiopathic urticaria (ICD-10 - L50.1) Ivana [...] she feels this helps her POTS symptoms 08/31/2024 Chronic cough (ICD-10 - R05.3) Ivana [...] less AUREA use since starting Trelegy. 08/31/2024 Allergic rhinitis due to pollen (ICD-10 [...] to stay on hives meds for now 08/31/2024 Other Plan Of Treatment Medication Medication Name Sig Start Date Stop Date Notes Olopatadine HCl 0.6 % 2 sprays in each n ostril Nasally Twice a day for 90 days 08/31/2024 Famotidine 20 MG 1 tablet Orally Twic e a day for 90 days TRELEGY ELLIPTA 200 mcg-62.5 mcg-25 mcg/inh 1 puff(s) inhaled once a day for 30 days ALBUTEROL CFC free 90 mcg/inh 2-4 puff(s) with spacer inhaled QID, PRN per asthma action plan Ipratropium Chandler 0.06 % 2 sprays in e ach nostril Nasally Three times a day for 30 days NASAL WASHES N/A as directed intranas ally as needed for 30 FLUTICASONE NASAL 50 mcg/inh 2 spray(s) in each nostril BID for 30 days XOLAIR 150 mg 300 mg subcutaneousl y every 4 weeks for 30 day(s) MONTELUKAST 10 mg 1 tab(s) orally once a day for 30 day(s) ZYRTEC 10 mg 1 tab(s) orally bid for 30 days CORLANOR 5 mg 1 tab(s) orally 2 ti mes a day (with meals) BUSPIRONE 7.5 mg 1 tab(s) orally 2 times a day Treatment Notes Assessment Notes Idiopathic urticaria Ivana has a hisotry of red, raised, [...] hive breakthrough. She was educated regarding the risks/benefits/alternatives to Xolair. AIE due to 'boxed warning' for anaphylaxis as well as risk for malignancy and CV disease. - Dosing today tolerated without issue. - Discussed reducing PO meds in the next 6 months if tolerated - Return in 4 weeks for Xolair dosing and in 8 weeks for further evaluation and management Tachycardia, unspecified Recent tachycardia with dizziness and flushing which she has experienced with POTS flares. She has experienced symptoms several times after shots. No large locals, respiratory symptoms, hives, or swelling. -Followed by Cardiology recommend f/u to discuss options -Interested in changing her shots to after Xolair as she feels this helps her POTS symptoms Chronic cough Ivana initially presented with occasional cough and [...] and less AUREA use since starting Trelegy. Allergic rhinitis due to pollen Ivana clearly suffers from atopic disease based [...] Ivana voiced understanding. - Follow-up as above Allergic rhinitis due to ani mal (cat) (dog) hair and dander Follow allergen avoidance, meds and continue SCIT as an adjunctive treatment to current regimen Other allergic rhinitis Follow allergen avoidance, meds and continue SCIT as an adjunctive treatment to current regimen Other chronic allergic conjunctivitis Gi john ocular signs and symptoms I encouraged allergy avoidance measures and meds as above. If symptoms persist, consider adding additional medications including intraocular antihistamine/mast cell stabilizer, PRN and continue SCIT as an adjunctive measure Dysphagia, unspecified Ivana reports chr onic dysphagia, two recent episodes of food sticking [...] recommend GI evaluaiton to discuss reflux meds Allergy status to penicillin Ivana has a history of rash in childhood after taking a medication, believed to be in the cephalosporin class, has been avoidant of all PCN since. We discussed penicillin skin testing and amoxicillin challenge. She would like to be contacted for the next skin testing date. Needs to stay on hives meds for now Pending Test Test Name Order Date -Tryptase ([id number]) 08/31/2024 Next Appt Details Follow Up: 4 Weeks,3 Months, Reason: Xolair, Evaluation and Management Provider Name:Eulalio MartinezJudson Nunez , 09/28/2024 04:00:00 PM, [address] [facility], [address] [place] [address], [id number], Provider Name:Eulalio HJudson Nunez , 10/02/2024 04:10:00 PM, [address] [employer], [address], [place], [address], Procedure Notes * Category Sub-Category Detail Notes XOLAIR (omalizumab) Administration Dosing Time / Vitals Time of administration, Lou Sykes 08/31/2024 02:04:05 PM CDT >, See initial vitals Dosage 300 mg (60 units) Location JONATHAN, LETICIA Reaction None Frequency q 4 weeks AIE (epinephrine) on patient? yes Lot Number / Expiration Lot Number(s): [id number], Expiration Date: 06/2025 Post-procedural check-out: Vital signs t aken 30 minutes after dosing administration: BP: 120/79 P: 70 O2: 100 Safety: Staff verified patie nt is carrying AIE (epinephrine) at all times given risk of anaphylaxis?: Yes Medication Source XOLAIR [facility]: [facility] (Insurance-provided) Reason for SP:: Patient is approved for SP and has vials on-hand to administer Source Verification:: Who pulled drug (p lease type staff name in notes)? Aruna Medical necessity for in-off ice administration: The patient or caregiver is not suitable , not competent or is physically unable to administer the XOLAIR product FDA-labeled for self-administration for the following reason(s):: The location and circumstances for self-administration are not adequate for the potential treatment of anaphylaxis should that arise Progress Notes * Ivana FITZGERALDDOB:1985 ( 38 yo F)Acc No.[id number]:08/31/2024 XOLAIR F/U Patient: Ivana MONDRAGON Provider: Samy Hernandez PA-C :1985 A ge:38 Y S ex:Female Date:08/31/2024 Address:[address] [place], [place] [id number] Pcp:Fabian Anderson Subjective: * Chief Complaints: * A follow-up - Continues immunotherapy. Developed facial flushing, dizziness, BP meds after shots yesterday. Chancellor it was due to her POTS. Followed by Router [employer] Dr. Mello.[facility] follow-up - Continues doing well without breakthrough symptoms. No longer having joint pain after Xolair dosing. Behind on dosing due to insurance.Occasional shortness of breath and cough, carries rescue inhaler with use once per month, no history of controller use, reports childhood asthma. [facility]Episode of throat tightness that occurred while eating a chicken wing, treated with antihistamines and steroids at the ER, has ate chicken since, no prior history of reactions, carries AIE. EGD was normal except for gastritis. Reintroduced chicken w/o issues. Eating unrestricted diet other than dairy (lactose intolerance) * HPI: * Introduction: I had the pleasure of seeing Awa Fitzgerald, a 38-year-old female with a past medical history significant for POTS who returns in consultation with her PCP, Dr. Neal, here for interval evaluation and to continue treatment with XOLAIR Seen yesterday for extended observation. Developed dizziness, flushing, and tachycardia after SCIT dosing. No signs of allergic reaction. She has experienced similiar symptoms with her POTS with a few other injections in the past. Overall she also her POTS is better controlled after receiving Xolair. Usually will dose SCIT before her Xolair. Has not tried changing order. S he continues to tolerate Xolair for CIU.Carrying AIE at all times given boxed warning for anaphylaxis. She continues Zyrtec BID, Pepcid BID and Singulair QD. Since starting Xolair Ivana has seen significant improvement. She has not had any interval hives. She has not had any recurrence of joint pain, previously seen after her first dose. She does note itching toward the end of the month. Briefly, last April in 2022 Awa meza beganexperiencing episodes of red, raised, pruritic welts that occurred primarily on her hands and feet. The welts would come and go within 24 hours in an unpredictable pattern. Was unable to identify specific triggers, though noted that temperature change made them worse. She was seen by her PCP who told her to take Zyrtec BID, which resolved most of her symptoms, did continue to note mild itching on her hands. Ivana was also seen in the ER shortly after developing sensation of throat closure while eating a chicken wing, she had hives present on her hands at the time but did not develop additional rash. Denies facial swelling, lower respiratory or GI symptoms. She took Benadryl and then went to the ER where she was treated with additional antihistamines and steroids, was not given epinephrine. She frequently eats wings and has eaten chicken since this episode without symptom onset. Denies episodes similar to this happening in the past, however does note frequent food sticking, recalls complaining of Chadian fries getting stuck as a child. Endorses symptoms of reflux, takes Pepcid as needed, has never been evaluated by GI. Of note, Ivana reports having an upper respiratory infection at the time of this episode. Ivana previously saw a llergist as a child and her parents told her she was allergic to most things. Skin testing was performed at her initial visit that showed positive results to multiple seasonal and perennial allergens. She started immunotherapy and continues monthly dosing. She previously developed facial redness and rash after dosing but didn't report til the second time it occurred. Turns out she was no pre-medicating with antihistamines prescribed. Dosing now tolerated. She also reports history of lower respiratory symptoms as a child, states she used albuterol and had hospitalizations prior to her teen years. She was initially started on Breo, then stepped up to Trelegy due to persistent shortness of breath and cough. Ivana reports less nighttime symptoms and less frequent AUREA use since starting Trelegy. No recent hospitalizations or oral steroid use for lower respiratory symptoms. Has never been seen by pulmonology. Did have Flu A in May. Additionally, Ivana avoids antibiotics in the penicillin class, believes she developed hives while taking a cephalosporin as a child and has avoided all PCNs since.Today, she reports no fevers, chills, night sweats or other constitutional symptoms. The patient is here for scheduled immunotherapy with XOLAIR. Please see the attached specialty form regarding the specifics of the administration of this medication. As per our protocol, they must undergo a screening health questionnaire (medication changes, reaction(s) to last immunotherapy dose(s), current health status, ACT (if appropriate), self-injectable epinephrine on patient(?) and peak flow (if appropriate)). Also, the patient must wait in our office under direct observation of physician and staff for 2 hours after the first 3 doses, then 30 minutes after receiving this medication thereafter. Furthermore, every patient must have an epinephrine pen (self-injectable) with them at all times given boxed warning of XOLAIR. * ROS: A LLERGY: Positive p er the HPI and history, otherwise unremarkable.?runny nose Y es. s cratchy throat Y es. i tchy eyes Y es. e ar fullness?Yes. s inus congestion Y es. S PECIAL SENSES: Positve for n one. r inging in ears Y es. i tching eyes Y es. C ONSTITUTIONAL: weight gain Y es. w eakness Y es. f atigue Y es. n ight sweats Y es. P ositive for n one. E NT: change in voice Y es. s ore throat Y es. r inging in ears Y es. P ositive p er the HPI and history, otherwise unremarkable. ? R ESPIRATORY: shortness of breath Y es. P ositive p er the HPI and history, otherwise unremakable. O PHTHALMOLOGY: eye irritation Y es. P ositive for p er the HPI and history, otherwise unremarkable. i tching Y es. s ensitivity to light Y es. w atering Y es. E NDOCRINOLOGY: fatigue Y es. p olydipsia Y es. p olyuria Y es. h eat intolerance Y es. P ositive for n one. C ARDIOLOGY: chest pain Y es. p alpitations Y es. d izziness?Yes. s hortness of breath Y es. P ositive for n one. G ASTROENTEROLOGY: nausea Y es. c onstipation Y es. d iarrhea Y es. i ndigestion Y es. h emorrhoids Y es. P ositive for n one. ? U ROLOGY: Positive for n one. D ERMATOLOGY: mole Y es. d ry or sensitive skin Y es. P ositive for p er the HPI and history, otherwise unremakable. N EUROLOGY: headache Y es. t ingling numbness Y es. d izziness Y es. P ositive for n one. H EMATOLOGY/LYMPH: Positive for n one. M USCULOSKELETAL: carpal tunnel Y es. P ositive for n one. P SYCHOLOGY: high stress level Y es. a nxiety Y es. P ositive for n one. F EMALE REPRODUCTIVE: heavy periods Y es. s exually active Y es. b reast pain Y es. A ll other review of systems per the HPI and history, otherwise unremarkable. * Medical History: * Surgical History: C ystectomy 1986Adenoidectomy & Tympanostomy tubes &C 2010Cervical ablation 2021 * Hospitalization/Major Diagno stic Procedure: P OTS 1999 * Family History: F ather: alive. M other: , Crohn's disease, Colorectal cancer, diagnosed with Cancer. C hildren: alive, Type I diabetes, Asthma, Anxiety, Depression, diagnosed with Diabetes mellitus type I, Atopic asthma w/o mention of status asthmaticus or acute exacerbation, Other specified mental disorders due to known physiological condition. 1 daughter(s) . . There is no other family history of cancer, CF, diabetes, emphysema or heart disease. * Social History: M arital Status What is your marital status? p artner A lcohol Screening Do you ever drink alcoholic beverages? Y es Number of drinks per occasion: 1 Frequency? M onthly S moking Have you ever smoked tobacco: n ever smoked Are you a : n ever smoker R ecreational drug use Have you ever used recreational drugs? N o D etails on consumption of certain products? Do you regularly consume products with aspartame; Equal or NutraSweet? N o Do you regularly consume products with artificial coloring??Yes Have you ever noticed worsening of your rash with these food items? Y es E xercise How often do you perform this exercise? w eekly A re any of the following personal care products containing fragrance, dye or preservatives used regularly? Shampoo: Y es Conditioner: Y es Soap: Y es Laundry Detergent: Y es Fabric Softener: Y es Deodorant: Y es Perfume, cologne, after shave: N o Air freshners or other scented products: N o Hair coloring dyes or rinses: N o O ccupation Are you currenly employed? Y es Employment status? 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 number of years?8 Do you believe that your current or previous occupation has any bearing on your illness? N o Do you have any pending or planned legal action against your current or former employer which pertains to your medical illness? N o Do you anticipate that your evaluation will be used in any legal action against your current employer or former employer? N o Have you had any job with high exposure to fumes, chemicals, dust or other noxious substances? N o Are you currently a student? N o E nvironmental History Living environment: p rivate home,with relatives Where is the home located? [place] Age of home: [age] How long have you lived there? 2 -4 years How many people live in the home? 3 H ome description Basement: Y es Any water damage in basement? N o Smokers in the home? N o Smokers outside the home? N o Air Conditioning? Y es Central Air? Y es Forced air heating? Y es Gas or electric? g as Fireplace? N o Wood burning stove? N o Do you vacuum the home? Y es Air purification systems? N o Pillow and mattress dust-proof encasings? N o Do you use a humidifier? Y es Whole house or room? r oom humidifier Does it have a humidistat? N o Is the humidifier cleaned regularly? Y es Do you own any pets? Y es What kind(s)? (click all that apply) d og Where do your pets sleep? a nywhere in the house Fabric softeners used? Y es Plants in the home? Y es How many? 2 Where are they kept? o ther room in home Is there carpeting in your bedroom? N o Do you have yxgo-ar-tfyh carpeting? N o What is the age of your mattress (years)? 0 What material(s) are used to manufacture your bedding and pillow? s ynthetic,natural fiber (e.g. cotton),other What is the age of your pillow (years)? 0 What material are your bedding items made of? s ynthetic,natural fiber (e.g. cotton) Do you sleep with quilts or blankets or a duvet? Y es What material? s ynthetic,natural fiber (e.g. cotton),other How many dogs? 1 T obacco Control (Standard) Tobacco use: N onsmoker A XIN-C (Standard) Did you have a drink containing alcohol in the past year? Y es How often did you have a drink containing alcohol in the past year? M onthly or less (1 point) How many drinks did you have on a typical day when you were drinking in the past year? 1 or 2 drinks (0 point) How often did you have six or more drinks on one occasion in the past year? N ever (0 point) Points 1 Interpretation N egative * Medications: T akingTrelegy Ellipta 200 mcg-62.5 mcg-25 mcg/inh powder 1 puff(s) inhaled once a day Pepcid 20 mg tablet 1 tab(s) orally 2 times a day XOLAIR 150 mg powder for injection 300 mg subcutaneously every 4 weeks NASAL WASHES N/A 1 quart of sterilized tap water or distilled water, 1 tsp NaCl, 1 pinch of baking soda as directed intranasally as needed Montelukast Sodium 10 MG Tablet 1 tab(s) orally once a day Fluticasone Propionate 50 MCG/ACT Suspension 2 spray(s) in each nostril BID busPIRone HCl 15 MG Tablet 1 tab(s) orally 2 times a day Corlanor 5 MG Tablet 1 tab(s) orally 2 times a day (with meals) Xolair 150 MG Solution Reconstituted 300 mg subcutaneously every 4 weeks Ubrelvy 100 MG Tablet 1 tab(s) orally once Olopatadine HCl 0.6 % Solution 2 sprays in each nostril Nasally Twice a day Albuterol Sulfate HFA 108 (90 Base) MCG/ACT Aerosol Solution 2-4 puff(s) with spacer inhaled QID, PRN per asthma action plan ZyrTEC Allergy 10 MG Tablet 1 tablet Orally Once a day Taking Trelegy Ellipta 200 mcg-62.5 mcg-25 mcg/inh powder 1 puff(s) inhaled once a day Taking Pepcid 20 mg tablet 1 tab(s) orally 2 times a day Taking XOLAIR 150 mg powder for injection 300 mg subcutaneously every 4 weeks Taking NASAL WASHES N/A 1 quart of sterilized tap water or distilled water, 1 tsp NaCl, 1 pinch of baking soda as directed intranasally as needed Taking Montelukast Sodium 10 MG Tablet 1 tab(s) orally once a day Taking Fluticasone Propionate 50 MCG/ACT Suspension 2 spray(s) in each nostril BID Taking busPIRone HCl 15 MG Tablet 1 tab(s) orally 2 times a day Taking Corlanor 5 MG Tablet 1 tab(s) orally 2 times a day (with meals) Taking Xolair 150 MG Solution Reconstituted 300 mg subcutaneously every 4 weeks Taking Ubrelvy 100 MG Tablet 1 tab(s) orally once Taking Olopatadine HCl 0.6 % Solution 2 sprays in each nostril Nasally Twice a day Taking Albuterol Sulfate HFA 108 (90 Base) MCG/ACT Aerosol Solution 2-4 puff(s) with spacer inhaled QID, PRN per asthma action plan Taking ZyrTEC Allergy 10 MG Tablet 1 tablet Orally Once a day Not-Taking/PRNPepcid 20 mg tablet 1 tab(s) orally 2 times a day BUSPIRONE 7.5 mg tablet 1 tab(s) orally 2 times a day CORLANOR 5 mg tablet 1 tab(s) orally 2 times a day (with meals) ZYRTEC 10 mg tablet 1 tab(s) orally bid MONTELUKAST 10 mg tablet 1 tab(s) orally once a day FLUTICASONE NASAL 50 mcg/inh spray 2 spray(s) in each nostril BID OLOPATADINE HYDROCHLORIDE 665 mcg/inh spray 2 spray(s) intranasally 2 times a day ALBUTEROL CFC free 90 mcg/inh aerosol with adapter 2-4 puff(s) with spacer inhaled QID, PRN per asthma action plan Trelegy Ellipta 200 mcg-62.5 mcg-25 mcg/inh powder 1 puff(s) inhaled once a day Famotidine 20 MG Tablet 1 tablet Orally Twice a day Ipratropium Chandler 0.06 % Solution 2 sprays in each nostril Nasally Three times a day Trelegy Ellipta 200 mcg-62.5 mcg-25 mcg/inh powder 1 puff(s) inhaled once a day Pepcid 20 mg tablet 1 tab(s) orally 2 times a day Trelegy Ellipta 200 mcg-62.5 mcg-25 mcg/inh powder 1 puff(s) inhaled once a day Trelegy Ellipta 200-62.5-25 MCG/ACT Aerosol Powder Breath Activated INHALE 1 PUFF ONCE DAILY Pepcid 20 mg tablet 1 tab(s) orally 2 times a day Montelukast Sodium 10 MG Tablet 1 tab(s) orally once a day MONTELUKAST 10 mg tablet 1 tab(s) orally once a day PEPCID 20 mg tablet 1 tab(s) orally 2 times a day FLUTICASONE NASAL 50 mcg/inh spray 2 spray(s) in each nostril BID ALBUTEROL CFC free 90 mcg/inh aerosol with adapter 2-4 puff(s) with spacer inhaled QID, PRN per asthma action plan TRELEGY ELLIPTA 200 mcg-62.5 mcg-25 mcg/inh powder 1 puff(s) inhaled once a day UBRELVY 100 mg tablet 1 tab(s) orally once PEPCID 20 mg tablet 1 tab(s) orally 2 times a day TRELEGY ELLIPTA 200 mcg-62.5 mcg-25 mcg/inh powder 1 puff(s) inhaled once a day PREDNISONE 20 mg tablet 1 tab(s) orally bid OLOPATADINE HYDROCHLORIDE 665 MCG/INH SPRAY 2 SPRAY(S) INTRANASALLY 2 TIMES A DAY , Notes to Pharmacist: *Please review for potential replacement for e-prescription and drug interaction check*Trelegy Ellipta 200 MCG-62.5 MCG-25 MCG/INH POWDER 1 PUFF(S) INHALED ONCE A DAY , Notes to Pharmacist: *Please review and pick correct strength-formulation from [employer] options. If intended option is not shown, discontinue and re-order from Quick Search*predniSONE 20 MG Tablet 1 tab(s) orally bid Medication List reviewed and reconciled with the patientNot-Taking/PRN Pepcid 20 mg tablet 1 tab(s) orally 2 times a day Not-Taking/PRN BUSPIRONE 7.5 mg tablet 1 tab(s) orally 2 times a day Not-Taking/PRN CORLANOR 5 mg tablet 1 tab(s) orally 2 times a day (with meals) Not-Taking/PRN ZYRTEC 10 mg tablet 1 tab(s) orally bid Not-Taking/PRN MONTELUKAST 10 mg tablet 1 tab(s) orally once a day Not- Taking/PRN FLUTICASONE NASAL 50 mcg/inh spray 2 spray(s) in each nostril BID Not-Taking/PRN OLOPATADINE HYDROCHLORIDE 665 mcg/inh spray 2 spray(s) intranasally 2 times a day Not-Taking/PRN ALBUTEROL CFC free 90 mcg/inh aerosol with adapter 2-4 puff(s) with spacer inhaled QID, PRN per asthma action plan Not-Taking/PRN Trelegy Ellipta 200 mcg-62.5 mcg-25 mcg/inh powder 1 puff(s) inhaled once a day Not-Taking/PRN Famotidine 20 MG Tablet 1 tablet Orally Twice a day Not-Taking/PRN Ipratropium Chandler 0.06 % Solution 2 sprays in each nostril Nasally Three times a day Not-Taking/PRN Trelegy Ellipta 200 mcg-62.5 mcg-25 mcg/inh powder 1 puff(s) inhaled once a day Not-Taking/PRN Pepcid 20 mg tablet 1 tab(s) orally 2 times a day Not-Taking/PRN Trelegy Ellipta 200 mcg-62.5 mcg-25 mcg/inh powder 1 puff(s) inhaled once a day Not-Taking/PRN Trelegy Ellipta 200-62.5-25 MCG/ACT Aerosol Powder Breath Activated INHALE 1 PUFF ONCE DAILY Not-Taking/PRN Pepcid 20 mg tablet 1 tab(s) orally 2 times a day Not-Taking/PRN Montelukast Sodium 10 MG Tablet 1 tab(s) orally once a day Not-Taking/PRN MONTELUKAST 10 mg tablet 1 tab(s) orally once a day Not- Taking/PRN PEPCID 20 mg tablet 1 tab(s) orally 2 times a day Not-Taking/PRN FLUTICASONE NASAL 50 mcg/inh spray 2 spray(s) in each nostril BID Not-Taking/PRN ALBUTEROL CFC free 90 mcg/inh aerosol with adapter 2-4 puff(s) with spacer inhaled QID, PRN per asthma action plan Not-Taking/PRN TRELEGY ELLIPTA 200 mcg-62.5 mcg-25 mcg/inh powder 1 puff(s) inhaled once a day Not-Taking/PRN UBRELVY 100 mg tablet 1 tab(s) orally once Not-Taking/PRN PEPCID 20 mg tablet 1 tab(s) orally 2 times a day Not-Taking/PRN TRELEGY ELLIPTA 200 mcg-62.5 mcg-25 mcg/inh powder 1 puff(s) inhaled once a day Not-Taking/PRN PREDNISONE 20 mg tablet 1 tab(s) orally bid Not-Taking/PRN OLOPATADINE HYDROCHLORIDE 665 MCG/INH SPRAY 2 SPRAY(S) INTRANASALLY 2 TIMES A DAY , Notes to Pharmacist: *Please review for potential replacement for e-prescription and drug interaction check*Not-Taking/PRN Trelegy Ellipta 200 MCG-62.5 MCG-25 MCG/INH POWDER 1 PUFF(S) INHALED ONCE A DAY , Notes to Pharmacist: *Please review and pick correct strength-formulation from [employer] options. If intended option is not shown, discontinue and re-order from Quick Search*Not-Taking/PRN predniSONE 20 MG Tablet 1 tab(s) orally bid Medication List reviewed and reconciled with the patient * Allergies: C ECLOR: hivblaiseno[Allergies Verified] Objective: * Vitals: B P:127/80mm Hg, HR:89/min, RR:17/min, Pulse Oximetry:100%, ACT:19, CU-Q2oL: 35, UAS7: 0, Ht: 66.5 in, Wt: 234.8 lbs, BMI:37.33Index. * Examination: G eneral examination: General appearance: p leasant, well-developed, well-nourished , female , in no apparent distress , speaking in full sentences. HEENT: conjunctiva are normal bilaterally , TMs without evidence of acute infection , posterior oropharynx is clear without exudates , erythema on pharyngeal wall, no exudates , tonsils are present , no tongue swelling , and uvula is midline. Oral cavity: n ormal, no lesions. Breasts : n ot performed. Heart: R RR, S1-S2, no murmurs, no rubs, no gallops. Lungs: c lear to auscultation in all lung edwards, no wheezes or crackles. Neurologic exam: u nremarkable. Skin: n ormal, no rash, moist, warm. Back: n ormal. Extremities: n ormal ROM, no clubbing, no cyanosis, no edema. Genitalia: n ot performed. Assessment: * Assessment: 1. I diopathic urticaria - L50.1 (Primary) 2 . T achycardia, unspecified - R00.0 3 . C hronic cough - R05.3 4 . A llergic rhinitis due to pollen - J30.1 5 . A llergic rhinitis due to animal (cat) (dog) hair and dander - J30.81 6 . O ther allergic rhinitis - J30.89 7 . O ther chronic allergic conjunctivitis - H10.45 8 . D ysphagia, unspecified - R13.10? 9. A llergy status to penicillin - Z88.0 Plan: * Treatment: 2. T achycardia, unspecified Notes: Recent tachycardia with dizziness and flushing which she has experienced with POTS flares. She has experienced symptoms several times after shots. No large locals, respiratory symptoms, hives, or swelling. -Followed by Cardiology recommend f/u to discuss options -Interested in changing her shots to after Xolair as she feels this helps her POTS symptoms 3. C hronic cough Continue ALBUTEROL aerosol with adapter, CFC free 90 mcg/inh, 2-4 puff(s) with spacer, inhaled, QID, PRN per asthma action plan; C ontinue TRELEGY ELLIPTA powder, 200 mcg-62.5 mcg-25 mcg/inh, 1 puff(s), inhaled, once a day, 30 days, 1, Refills 3. Notes: Ivana initially presented with occasional cough and [...] and less AUREA use since starting Trelegy. 4. A llergic rhinitis due to pollen Continue FLUTICASONE NASAL spray, 50 mcg/inh, 2 spray(s), in each nostril, BID, 30 days, 1, Refills 0; C ontinue NASAL WASHES 1 quart of sterilized tap water or distilled water, 1 tsp NaCl, 1 pinch of baking soda, N/A, as directed, intranasally, as needed, 30, QS, Refills PRN; S tart Olopatadine HCl Solution, 0.6 %, 2 sprays in each nostril, Nasally, Twice a day As needed, 90 days, 3, Refills 0. Notes: Ivaan clearly suffers from atopic disease based upon our skin testing and clinical history. Accordingly, we have encouraged her medication regimen, discussed nasal washes and allergy-specific avoidance measures. - Ivana reports now being on monthly dosing. Previously had dosing reduced due to pruritus. - Due to recent illness, recommend pushing her next SCIT dose to next week. Ivana voiced understanding. - Follow-up as above 5. A llergic rhinitis due to animal (cat) (dog) hair and dander Notes: Follow allergen avoidance, meds and continue SCIT as an adjunctive treatment to current regimen 6. O ther allergic rhinitis Notes: Follow allergen avoidance, meds and continue SCIT as an adjunctive treatment to current regimen 7. O ther chronic allergic conjunctivitis Notes: Given ocular signs and symptoms I encouraged allergy avoidance measures and meds as above. If symptoms persist, consider adding additional medications including intraocular antihistamine/mast cell stabilizer, PRN and continue SCIT as an adjunctive measure 8. D ysphagia, unspecified Notes: Ivana reports chronic dysphagia, two recent episodes [...] recommend GI evaluaiton to discuss reflux meds 9. A llergy status to penicillin Notes: Ivana has a history of rash in childhood after taking a medication, believed to be in the cephalosporin class, has been avoidant of all PCN since. We discussed penicillin skin testing and amoxicillin challenge. She would like to be contacted for the next skin testing date. Needs to stay on hives meds for now 10. O thers Continue BUSPIRONE tablet, 7.5 mg, 1 tab(s), orally, 2 times a day; C ontinue CORLANOR tablet, 5 mg, 1 tab(s), orally, 2 times a day (with meals); C ontinue Ipratropium Chandler Solution, 0.06 %, 2 sprays in each nostril, Nasally, Three times a day, 30 days, 1, Refills 0. * Procedures: X OLAIR (omalizumab) Administration: Dosing Time / Vitals T lesley of administration, Lou Lombardo 08/31/2024 02:04:05 PM CDT >, See initial vitals. Dosage 3 00 mg (60 units). Location L [facility], [facility]. Reaction N one. Frequency q 4 weeks. AIE (epinephrine) on patient? y es. Lot Number / Expiration L ot Number(s): [id number], Expiration Date: 06/2025. Post-procedural check-out: V ital signs taken 30 minutes after dosing administration: BP: 120/79 P: 70 O2: 100. Safety: S taff verified patient is carrying AIE (epinephrine) at all times given risk of anaphylaxis? Y es Medication Source X OLAIR Source [facility] (Insurance-provided) R toni for SP: P atient is approved for SP and has vials on-hand to administer S ource Verification: W albaro pulled drug (please type staff name in notes)? Aruna Medical necessity for in-chief technology officer: T he patient or caregiver is not suitable, not competent or is physically unable to administer the XOLAIR product FDA-labeled for self-administration for the following reason(s): T he location and circumstances for self-administration are not adequate for the potential treatment of anaphylaxis should that arise * Procedure Codes: G 8427 DOC MEDS VERIFIED W/PT OR [id number] PT-FOCUSED HLTH RISK ASSMT, Modifiers: 76 47363 THER/PROPH/DIAG INJ, SC/IM, Units: 2.00 , Modifiers: 76 * Preventive Medicine: Counseling: M edication instruction: W atch for side effects of prescribed medications, Nasal steroid/antihistamine instruction: avoid septum, Xolair: anaphylaxis, possible association with CV disease and malignancy , Reviewed boxed warning on prescribed medication, [place] teeth or rinse out mouth after the use of oral, inhaled steroids to prevent oral thrush. E ducation: G ENERAL EDUCATION: Our staff spent an additional 30 minutes in direct contact with the patient educating them on their current diagnoses and proper treatment and prevention of symptoms and the proper use of medications, HIVES EDUCATION:, Avoid opioid-containing analgesics, Avoid excessive alcohol use, Avoid NSAIDs (non-steroidal anti-inflammatories) - list provided. E ducation 2: A RC EDUCATION: Our staff discussed the appropriate allergen avoidance measures and medication utilization including upper airway hygiene with daily nasal washes given the patient's clinical status and diagnoses.. P atient education material sent to portal? Y es C are goal follow up plan BMI management provided Y es Above Normal BMI Follow-up D ietary management education, guidance, and counseling Screenings: F all Risk Fall Risk Assessment: N o falls in the past year * Follow Up: 4 Weeks,3 Months (Reason: Xolair, Evaluation and Management) * Billing Information: * Visit Code: 47115 Office Visit, Est Pt., Level 4. Modifiers: 25 * Procedure Codes: G8427 DOC MEDS VERIFIED W/[place]. [address] PT-FOCUSED HLTH RISK ASSMT. Modifiers: 76 33956 THER/PROPH/DIAG INJ, SC/IM. Units: 2.00. Modifiers: 76 * Sign off status: Completed true * Provider: Samy Hernandez PA-C Date: 0 08/31/2024 Generated for Jefrfey almaguer/Black/eTransmitting on: 0 09/25/2024 05:28 PM CDT History and Physical Notes * HPI (History of Present Illness) Category Sub-Category Detail Notes Category Notes *Introduction I had the pleasure of seeing Ivana Fitzgerald, a 38-year-old female with a past medical history significant for POTS who returns in consultation with her PCP, Dr. Neal, here for interval evaluation and to continue treatment with XOLAIR Seen yesterday for extended observation. Developed dizziness, flushing, and tachycardia after SCIT dosing. No signs of allergic reaction. She has experienced similiar symptoms with her POTS with a few other injections in the past. Overall she also her POTS is better controlled after receiving Xolair. Usually will dose SCIT before her Xolair. Has not tried changing order. She continues to tolerate Xolair for CIU. Carrying AIE at all times given boxed warning for anaphylaxis. She continues Zyrtec BID, Pepcid BID and Singulair QD. Since starting Xolair Ivana has seen significant improvement. She has not had any interval hives. She has not had any recurrence of joint pain, previously seen after her first dose. She does note itching toward the end of the month. Briefly, last April in 2022 Ivana began experiencing episodes of red, raised, pruritic welts that occurred primarily on her hands and feet. The welts would come and go within 24 hours in an unpredictable pattern. Was unable to identify specific triggers, though noted that temperature change made them worse. She was seen by her PCP who told her to take Zyrtec BID, which resolved most of her symptoms, did continue to note mild itching on her hands. Ivana was also seen in the ER shortly after developing sensation of throat closure while eating a chicken wing, she had hives present on her hands at the time but did not develop additional rash. Denies facial swelling, lower respiratory or GI symptoms. She took Benadryl and then went to the ER where she was treated with additional antihistamines and steroids, was not given epinephrine. She frequently eats wings and has eaten chicken since this episode without symptom onset. Denies episodes similar to this happening in the past, however does note frequent food sticking, recalls complaining of [place] fries getting stuck as a child. Endorses symptoms of reflux, takes Pepcid as needed, has never been evaluated by GI. Of note, Ivana reports having an upper respiratory infection at the time of this episode. 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 Skin testing was performed at her initial visit that showed positive results to multiple seasonal and perennial allergens. She started immunotherapy and continues monthly dosing. She previously developed facial redness and rash after dosing but didn't report til the second time it occurred. Turns out she was no pre-medicating with antihistamines prescribed. Dosing now tolerated. She also reports history of lower respiratory symptoms as a child, states she used albuterol and had hospitalizations prior to her teen years. She was initially started on Breo, then stepped up to Trelegy due to persistent shortness of breath and cough. Ivana reports less nighttime symptoms and less frequent AUREA use since starting Trelegy. No recent hospitalizations or oral steroid use for lower respiratory symptoms. Has never been seen by pulmonology. Did have Flu A in May. Additionally, Ivana avoids antibiotics in the penicillin class, believes she developed hives while taking a cephalosporin as a child and has avoided all PCNs since. Today, she reports no fevers, chills, night sweats or other constitutional symptoms The patient is here for scheduled immunotherapy with XOLAIR. Please see the attached specialty form regarding the specifics of the administration of this medication. As per our protocol, they must undergo a screening health questionnaire (medication changes, reaction(s) to last immunotherapy dose(s), current health status, ACT (if appropriate), self-injectable epinephrine on patient(?) and peak flow (if appropriate)). Also, the patient must wait in our office under direct observation of physician and staff for 2 hours after the first 3 doses, then 30 minutes after receiving this medication thereafter. Furthermore, every patient must have an epinephrine pen (self-injectable) with them at all times given boxed warning of XOLAIR. Examination Category Sub-Category Detail Notes Category Not es General examination HEENT: conjunctiva are normal bilaterally , TMs without evidence of acute infection , posterior oropharynx is clear without exudates , erythema on pharyngeal wall, no exudates , tonsils are present , no tongue swelling , and uvula is midline Heart: RRR, S1-S2, no murmu rs, no rubs, no gallops Lungs: clear to auscultatio n in all lung edwards, no wheezes or crackles Extremities: normal ROM, no clubb ing, no cyanosis, no edema General appearance: pleasant, well-devel oped, well-nourished , female , in no apparent distress , speaking in full sentences Skin: normal, no rash, delmi st, warm Neurologic exam: unremarkable Oral cavity: normal, no lesions Breasts : not performed Back: normal Genitalia: not performed
[2024-09-25 17:48] VITALS: BP 130/92; PULSE 89; RESP 16; O2SAT 100
--- OUTSIDE RECORDS SUMMARY | 2024-09-25 18:52 | XMS_ITS | Clinical Summary ---
Author Organization [facility] Address [address] [place] [address] Care Team Providers Care Rigging Loft Mechanic Name Role Phone Fabian Anderson MD Primary Care Provider [phone] Allergies Active Allergy Reactions Criticality Noted Date [...] Date Chronic fatigue and immune dysfunction syndrome ([facility]/HCC) 07/17/2024 Eczema 07/17/2024 Plantar fasciitis 07/17/2024 Postural orthostatic tachycardia syndrome (POTS) 07/17/2024 Overview (07/17/2024): Onset 2002 Trigger finger 07/17/2024 Primary fibromyalgia syndrome 03/09/2023 Overview (07/17/2024): Chronic fatigue and musculoskeletal pain with exam findings of allodynia. Could discuss symptomatic Rx options with PCP (eg. duloxetine). Inappropriate sinus tachycardia ([facility]) 2022 Asthma ([facility]) 01/21/2022 Overview (07/17/2024): All my life Encounters Date Type Department Care Team Description 09/25/2024 Telephone [facility] Medical [facility] - [place] [address] [place] [address] Fabian Anderson MD Appointment Request 08/28/2024 Telephone [facility]ty Care - [place] [address] [place] [address] Fabian Anderson MD Medication 08/28/2024 Travel 08/17/2024 MyChart Message Enc [place] [address] [place] [address] [place] [address] Fabian Anderson MD Buspirone side effects with increased dose 08/14/2024 4:20 PM CDT Office Visit [place] [address] [address] [place] [address] Fabian Anderson MD Follow Up; Sleep Problem; Fatigue; Anxiety 08/14/2024 Travel 07/24/2024 7:30 AM DATA WAREHOUSING ENGINEER Allied Health/Nurse Visit [place] [address] [place] [address] [place] [address] Fabian Anderson MD Allied Health Visit (Patient present for labs) 07/24/2024 - 07/24/2024 11:59 PM DATA WAREHOUSING ENGINEER Hospital Encounter [facility] [address] [place] [address] Discharge Disposition: Home or Self Care (Routine Discharge) 07/24/2024 Orders Only [place] [address] [address] Viki Stallworth MA 07/24/2024 Travel 07/18/[address] [address] Fabian Anderson MD Record Request 07/17/2024 2:20 PM DATA WAREHOUSING ENGINEER Office Visit [place] [address] [address] Fabian Anderson MD New Patient; Anxiety; Hypothyroidism; Follow Up (Chronic medical issues including allergies, fibromyalgia, chronic fatigue syndrome and trigger finger) 07/17/2024 Scan [employer] HEALTH INFO SRVCS Scanned, [facility] 07/17/2024 Travel from Last 3 [...] Sex Assigned at Female 07/17/2024 2:30 PM DATA WAREHOUSING ENGINEER Legal Sex Female 2:41 PM DATA WAREHOUSING ENGINEER Gender Identity Female 07/17/2024 2:30 PM DATA WAREHOUSING ENGINEER Sexual Orientation Lesbian or Vyas 07/17/2024 2: 30 PM DATA WAREHOUSING ENGINEER Last Filed Vital Signs Vital Sign Reading [...] CDT Laboratory Only [facility] Multispecialty [place] [address] [address] [place] [address] Fabian Anderson MD [address] [address] 11/01/2024 3:40 PM CD[facility] [place] [address] [place] [address] [address] [place] [address] Fabian Anderson MD [address] [address] Health Maintenance Due Date Last Done Comments [...] 08/14/2024 Hepatitis C Completed 07/24/2024 PHQ-2 (Physician [place]) Completed 08/14/2024 HPV Vaccines Aged Out No [...] Comments HEMOGLOBIN, GLYCOSYLATED Routine 07/24/2024 7:43 AM DATA WAREHOUSING ENGINEER General medical exam Drug therapy CBC W/DIFF AUTOMATED Routine 07/24/2024 7:43 AM DATA WAREHOUSING ENGINEER General medical exam Drug therapy COMPREHENSIVE METABOLIC PANEL Routine 07/24/2024 7:43 AM DATA WAREHOUSING ENGINEER General medical exam Drug therapy LIPID PANEL Routine 07/24/2024 7:43 AM DATA WAREHOUSING ENGINEER General medical exam Drug therapy TSH W/REFLEX Routine 07/24/2024 7:43 AM DATA WAREHOUSING ENGINEER General medical exam Drug therapy HEPATITIS C ANTIBODY Routine 07/24/2024 7:43 AM DATA WAREHOUSING ENGINEER General medical exam Drug therapy URINALYSIS AUTO DIP Routine 07/18/2024 General medical exam Drug therapy LAINA (generalized anxiety disorder) COLLECTION VENOUS BLOOD VENIPUNCTURE Routine 07/17/2024 3:16 PM DATA WAREHOUSING ENGINEER General medical exam Drug therapy OUTSIDE CYTOPATH CERV/VAG INTERPRET (PAP) 02/21/2024 MAMMOGRAM GENERIC (SCAN ORDER) 03/03/2022 from Last 3 Months or Most Recently Relevant to Health Maintenance Results * TSH W/REFLEX (07/24/2024 7:43 AM DATA WAREHOUSING ENGINEER) Pathologist [facility] TSH 2.717 0.358 - 3.740 uIU/ML 07/24/2024 3:28 PM [facility] 07/24/2024 7:43 AM [facility] Fabian Anderson MD LABORATORY Final Result [facility] [address] [place] [address], * HEMOGLOBIN, GLYCOSYLATED (07/24/2024 7:43 AM [facility]) Pathologist [facility] HGB A1C 5.3 4.5 - 6.2 % 07/24/2024 3:33 PM [facility] ESTIMATED AVG GLUCOSE 105 74 - 106 MG/DL 07/24/2024 3:33 PM DATA WAREHOUSING ENGINEER [facility] 07/24/2024 7:43 AM DATA WAREHOUSING ENGINEER Fabian Anderson MD LABORATORY Final Result [facility] [place] [address] [place] [address], * (ABNORMAL) COMPREHENSIVE METABOLIC PANEL (07/24/2024 7:43 AM DATA WAREHOUSING ENGINEER) Pathologist [facility] SODIUM S/P/B 141 136 - 145 MMOL/L 07/24/2024 3:28 PM [facility] POTASSIUM S/P/B 4.0 3.5 - 5.1 MMOL/L 07/24/2024 3:28 PM [facility] CHLORIDE S/P/B 104 98 - 107 MMOL/L 07/24/2024 3:28 PM [facility] CO2 30.8 21 - 32 MMOL/L 07/24/2024 3:28 PM [facility] GLUCOSE 91 70 - 99 MG/DL 07/24/2024 3:28 PM [facility] BUN 5(L) 7 - 18 MG/DL 07/24/2024 3:28 PM [facility] CREATININE S/P/B 0.74 0.55 - 1.02 MG/DL 07/24/2024 3:28 PM [facility] CALCIUM S/P/B 9.1 8.4 - 10.5 MG/DL 07/24/2024 3:28 PM [facility] BILIRUBIN TOTAL S/P/B 0.6 0.2 - 1.0 MG/DL 07/24/2024 3:28 PM [facility] ALKALINE PHOSPHATASE S/P/B 65 37 - 98 U/L 07/24/2024 3:28 PM DATA WAREHOUSING ENGINEER [facility] [place] AST 15 15 - 37 U/L 07/24/2024 3:28 PM DATA WAREHOUSING ENGINEER [facility] [place] ALT 27 14 - 59 U/L 07/24/2024 3:28 PM DATA WAREHOUSING ENGINEER [facility] [place] TOTAL PROTEIN S/P/B 6.6 6.4 - 8.2 G/DL 07/24/2024 3:28 PM [facility] [place] ALBUMIN S/P/B 3.8 3.4 - 5.0 G/DL 07/24/2024 3:28 PM DATA WAREHOUSING ENGINEER [facility] [place] ANION GAP 6.2 5 - 15 MMOL/L 07/24/2024 3:28 PM DATA WAREHOUSING ENGINEER [facility] [place] Comment:REFERENCE RANGE NOT ESTABLISHED OSMOLALITY (CALC) 289 MOSM/KG 025 3:28 PM [facility] [place] Comment:REFERENCE RANGE NOT ESTABLISHED GFR ESTIMATE >90 >90 ML/MIN/1. 73 M2 07/24/2024 3:28 PM DATA WAREHOUSING ENGINEER [facility] [place] GFR NOTES GFR REFERENCE S: 07/24/2024 3:28 PM [facility] [place] Comment: THE ESTIMATED GFR IS CALCULATED USING [...] FAILURE: <15 ml/min/1.73 m2 07/24/2024 7:43 AM DATA WAREHOUSING ENGINEER us Fabian Anderson MD LABORATORY Final Result [facility] [place] [address] [place] [address], * LIPID PANEL (07/24/2024 7:43 AM DATA WAREHOUSING ENGINEER) CHOLESTEROL 179 <200 MG/DL 07/24/2024 3:28 PM DATA WAREHOUSING ENGINEER [facility] TRIGLYCERIDES 129 <150 MG/DL 07/24/2024 3:28 PM [facility] HDL 57 >40 MG/DL 07/24/2024 3:28 PM DATA WAREHOUSING ENGINEER [facility] LDL-C 96 <100 MG/DL 07/24/2024 3:28 PM DATA WAREHOUSING ENGINEER [facility] VLDL CALCULATION 26 5 - 28 MG/DL 07/24/2024 3:28 PM [facility] CHOL/HDL RATIO 3.1 0.0 - 4.0 07/24/2024 3:28 PM [facility] LDL/HDL 1.7 0.41 - 2.13 07/24/2024 3:28 PM DATA WAREHOUSING ENGINEER [facility] NON HDL CHOLESTEROL 122 <140 MG/DL 07/24/2024 3:28 PM DATA WAREHOUSING ENGINEER [facility] 07/24/2024 7:43 AM DATA WAREHOUSING ENGINEER us Fabian Anderson MD LABORATORY Final Result [facility] [address] [place] [address], * HEPATITIS C ANTIBODY (07/24/2024 7:43 AM DATA WAREHOUSING ENGINEER) HEPATITIS C AB NON-REACTI VE NON-REACT ABDULLAHI 07/24/2024 9:47 PM DATA WAREHOUSING ENGINEER [facility] Comment: ANTIBODIES TO HCV NOT DETECTED. DOES NOT EXCLUDE THE POSSIBILITY OF EXPOSURE TO HCV. 07/24/2024 7:43 AM DATA WAREHOUSING ENGINEER us Fabian Anderson MD LABORATORY Final Result [facility] [address] [place] [address], [id number] * (ABNORMAL) CBC W/DIFF AUTOMATED (07/24/2024 7:43 AM DATA WAREHOUSING ENGINEER) [facility] WBC 6.60 4.00 - 10.80 x10'3/uL 07/24/2024 2:40 PM DATA WAREHOUSING ENGINEER [facility] RBC 4.73 4.10 - 5.40 x10'6/uL 07/24/2024 2:40 PM DATA WAREHOUSING ENGINEER [facility] HGB 14.3 12.0 - 16.0 G/DL 07/24/2024 2:40 PM [facility] HCT 43.6 36.0 - 47.0 % 07/24/2024 2:40 PM DATA WAREHOUSING ENGINEER [facility] MCV 92.2 78.0 - 100.0 FL 07/24/2024 2:40 PM [facility] MCH 30.2 27.0 - 31.0 PG 07/24/2024 2:40 PM DATA WAREHOUSING ENGINEER [facility] MCHC 32.8(L) 33.0 - 36.0 G/DL 07/24/2024 2:40 PM [facility] RDW 13.2 11.5 - 14.5 % 07/24/2024 2:40 PM [facility] PLT 356(H) 150 - 350 x10'3/uL 07/24/2024 2:40 PM [facility] MPV 9.8 7.4 - 10.4 FL 07/24/2024 2:40 PM [facility] DIFFERENTIAL TYPE AUTOMATED DIFFERENTIAL 07/24/2024 2:40 PM [facility] NEUTROPHILS % 64.7 % 07/24/2024 2:40 PM [facility] LYMPHOCYTES % 24.2 % 07/24/2024 2:40 PM DATA WAREHOUSING ENGINEER [facility] MONOCYTES % 8.0 % 07/24/2024 2:40 PM DATA WAREHOUSING ENGINEER [facility] EOSINOPHILS % 2.6 % 07/24/2024 2:40 PM DATA WAREHOUSING ENGINEER [facility] BASOPHILS % 0.5 % 07/24/2024 2:40 PM DATA WAREHOUSING ENGINEER [facility] IMMATURE GRANS % 0.0 % 07/24/2024 2:40 PM DATA WAREHOUSING ENGINEER [facility] ABS. NEUTROPHILS 4.27 1.60 - 8.30 x10'3/uL 07/24/2024 2:40 PM DATA WAREHOUSING ENGINEER [facility] ABS. LYMPHOCYTES 1.60 0.80 - 4.70 x10'3/uL 07/24/2024 2:40 PM DATA WAREHOUSING ENGINEER [facility] ABS. MONOCYTES 0.53 0.00 - 1.50 x10'3/uL 07/24/2024 2:40 PM DATA WAREHOUSING ENGINEER [facility] ABS. EOSINOPHILS 0.17 0.00 - 0.40 x10'3/uL 07/24/2024 2:40 PM DATA WAREHOUSING ENGINEER [facility] ABS. BASOPHILS 0.03 0.00 - 0.20 x10'3/uL 07/24/2024 2:40 PM DATA WAREHOUSING ENGINEER [facility] ABS. IMMATURE GRANULOCYTES 0.00 0.00 - 0.03 x10'3/uL 07/24/2024 2:40 PM DATA WAREHOUSING ENGINEER [facility] 07/24/2024 7:43 AM DATA WAREHOUSING ENGINEER us Fabian Anderson MD LABORATORY Final Result [facility] [address] [place] [address], [place] [phone] * (ABNORMAL) URINALYSIS AUTO DIP (07/18/2024) COLOR (U) YELLOW YELLOW [address], [place] TRANSPARENCY CLEAR CLEAR MG[address], [place] GLUCOSE (U) NEGATIVE NEGATIVE MG/DL MG-[address], [place] BILIRUBIN (U) NEGATIVE NEGATIVE MG-[address], [place] KETONES MG/DL (U) NEGATIVE NEGATIVE MG/DL MG-[address], [place] SPECIFIC GRAVITY (U) 1.015 1.001 - 1.035 MG[address], [place] BLOOD (U) TRACE (Non Hemolyzed, Intact)(A) NEGATIVE MG-[address], [place] U PH 7.5 5.0 - 9.0 MG-[address], [place] PROTEIN (U) NEGATIVE NEGATIVE mg/dL MG-[address], [place] UROBILINOGEN 0.2 0.2 - 1.0 EU/dL = mg/dL MG-[address], [place] NITRITES NEGATIVE NEGATIVE MG/DL MG-[address], [place] LEUKOCYTES (U) NEGATIVE NEGATIVE MG-[address], [place] URINE SPECIMEN OBTAINED BY CLEAN CATCH PROCEDURE / Unknown 07/18/2024 Fabian Anderson MD URINE ORDERABLES Final Result MG-[address], [facility] [address] [place] [address], * PAP SMEAR WITH HPV (02/21/2024) 02/21/2024 [employer] Scanned SCANNING Final Resu lt * MAMMOGRAM GENERIC (SCAN ORDER) (03/03/2022) Anatomical Region Laterality Modality Other 03/03/2022 [employer] Scanned SCANNING Final Resu lt from Last 3 Months or Most Recently Relevant to Health Maintenance Insurance [employer] Care Teams Rigging Loft Mechanic Relationship Specialty Start Date End Date Fabian Anderson MD [address] [address] PCP - General INTERNAL MEDICINE 04/25/24
--- OUTSIDE RECORDS SUMMARY | 2024-09-25 18:52 | XMS_ITS | Clinical Summary ---
Author Organization [facility] Address [address] [place] [address] Care Team Providers Care Food Consultant Name Role Phone Jackie Neal MD Primary Care Provider [phone] Mike Hollingsworth MD Unavailable [phone] Source Comments [facility],non-owned Affiliates and Associated Physician Practices is amultiple site organization consisting of ambulatory clinics and hospital sitesin [place], [place], [place] and [place]. This disclosure is being madepursuant to the Care Everywhere program and may not contain all information available regarding this patient. Last updated 18.[facility] Allergies Active Allergy Reactions Criticality Noted Date [...] this topic Insurance [employer] [address] [place] [address] SELF PAY NO INSURANCE Member Subscriber Plan / Payer (Ef fective for All Dates) Name:Isaac Fitzgerald Member ID:Not on file Relation to Subscriber:Not on file Name:ISAAC FITZGERALD Subscriber ID:Not on file Address: [address] [place] [address] Payer ID:Not on file Group ID:Not on file Type:Self Pay Address: [place], [place] Care Teams Food Consultant Relationship Specialty Start Date End Date Jackie Neal MD [place] [address] PCP - General Internal Medicine 05/19/21 Mike Hollingsworth MD [address] [facility] [place] [address] Mosaic Layer Electrophysiology 05/19/21
--- OUTSIDE RECORDS SUMMARY | 2024-09-25 18:52 | XMS_ITS | Clinical Summary ---
Author Organization [address] Address [address] [address] Care Team Providers Care Apple Solutions Consultant Name Role Phone Jackie Neal MD Unavailable [phone] Fabian Anderson MD Primary Care Provider [phone] Allergies Active Allergy Reactions Criticality Noted Date [...] Type Department Care Team Description 08/31/2024 Telephone [facility] Medical [facility] Cardiology [address] [facility] [address] [place] [phone] Cachorro Graham MD 08/03/2024 3:45 PM SLOT HOST Office Visit [facility] Cardiology [address] [place] [address] [address] [place] [address] Cachorro Graham MD POTS (postural orthostatic tachycardia syndrome) (Primary Dx) 07/26/2024 Telephone [facility] Medical [facility] Cardiology [address] [place] [address] Cachorro Graham MD from Last 3 Months [...] on file Legal Sex Female 4:45 AM SLOT HOST Gender Identity Not on file Sexual Orientation Not on file Obstetrics History Last Filed Vital Signs Vital Sign Reading Time Taken Comments Blood Pressure 130/74 08/03/2024 3:26 PM SLOT HOST Pulse 87 08/03/2024 3:26 PM SLOT HOST Temperature 37 C (98.6 F) 06/02/2024 9:31 AM SLOT HOST Respiratory Rate 18 06/02/2024 9:31 AM SLOT HOST Oxygen Saturation 99% 08/03/2024 3:26 PM SLOT HOST Inhaled Oxygen Concentration - - Weight 104.8 kg (231 lb) 08/03/2024 3:26 PM SLOT HOST Height 171.5 cm (5' 7.5 ) 08/03/2024 3:26 PM SLOT HOST Body Mass Index 35.65 08/03/2024 3:26 PM SLOT HOST Plan of Treatment Health Maintenance Due Date [...] patient's age to complete this topic Insurance [facility] CHOICE PLUS [facility] HMO/PPO Address: [address] [place] [address] CHOICE [employer] H[facility]/PPO Address: [address] [place] [address] [employer] [facility] HMO/PPO Address: [address] [place] [address] [employer] Care Teams [employer] Consultant Relationship Specialty Start Date End Date Fabian Anderson MD [address] [address] PCP - General Internal Medicine 08/03/24 [place] [address] 01/05/22
--- OUTSIDE RECORDS SUMMARY | 2024-09-25 18:52 | XMS_ITS | Encounter Summary ---
Author Organization [facility] Address [address] [place] [address] Care Team Providers Care Recruiter Manager Name Role Phone Fabian Anderson MD Primary Care Provider [phone] Reason for Visit * Reason Onset Date Comments Appointment Request 09/25/2024 Encounter Details Date Type Department Care Team (Late st Contact Info) Description 09/25/2024 Telephone [facility] Medical Group Multispecialty Care - [place] [address] [address] [place] [address] Fabian Anderson MD [address] [place] [phone] Appointment Request Social History Tobacco Use Types [...] Sex Assigned at Female 07/17/2024 2:30 PM COKE STILL CLEANER Legal Sex Female 2:41 PM COKE STILL CLEANER Gender Identity Female 07/17/2024 2:30 PM COKE STILL CLEANER Sexual Orientation Lesbian or Vyas 07/17/2024 2: 30 PM COKE STILL CLEANER documented as of this encounter Progress Notes [...] Description 10/26/2024 8:20 AM CDT Laboratory Only [address] [address] Fabian Andreson MD [address] [place] [address] 11/01/2024 3:40 PM CDT Office Visit [address] [address] Fabian Anderson MD [address] [place] [address] documented as of this encounter Visit Diagnoses Not on filedocumented in this encounter Additional Health Concerns Assessment Noted Time PHQ-9 Depression Total Score: 6 08/15/19 25 5:15 PM CDT documented as of this encounter Care Teams Recruiter Manager Relationship Specialty Start Date End Date Fabian Anderson MD [address] [place] [address] PCP - General INTERNAL MEDICINE 04/25/24 documented as of this encounter
--- OUTSIDE RECORDS SUMMARY | 2024-09-25 18:52 | XMS_ITS | Referral Summary ---
Author Organization [facility] [address] [facility] lto Address [address] [address] Care Team Providers Care Account Services Specialist Name Role Phone Jackie Neal MD Unavailable [phone] Fabian Anderson MD Primary Care Provider [phone] Encounters Date Type Department Care Team Description 08/31/2024 Telephone [facility] Medical Group Cardiology [address] [facility] [address] [place] [phone] Cachorro Graham MD 08/03/2024 3:45 PM MORTGAGE LOAN CLOSER Office Visit [facility] Medical Group Cardiology [address] [place] [address] [address] [place] [phone] Cachorro Graham MD POTS (postural orthostatic tachycardia syndrome) (Primary Dx) 07/26/2024 Telephone [facility] Cardiology [address] [place] [address] [place] [phone] Cachorro Graham MD from Last 3 [...] on file Legal Sex Female 4:45 AM MORTGAGE LOAN CLOSER Gender Identity Not on file Sexual Orientation Not on file Last Filed Vital Signs Vital Sign Reading Time Taken Comments Blood Pressure 130/74 08/03/2024 3:26 PM MORTGAGE LOAN CLOSER Pulse 87 08/03/2024 3:26 PM MORTGAGE LOAN CLOSER Temperature 37 C (98.6 F) 06/02/2024 9:31 AM MORTGAGE LOAN CLOSER Respiratory Rate 18 06/02/2024 9:31 AM MORTGAGE LOAN CLOSER Oxygen Saturation 99% 08/03/2024 3:26 PM MORTGAGE LOAN CLOSER Inhaled Oxygen Concentration - - Weight 104.8 kg (231 lb) 08/03/2024 3:26 PM MORTGAGE LOAN CLOSER Height 171.5 cm (5' 7.5 ) 08/03/2024 3:26 PM MORTGAGE LOAN CLOSER Body Mass Index 35.65 08/03/2024 3:26 PM MORTGAGE LOAN CLOSER Plan of Treatment Not on file Insurance [facility] [employer] Care Teams Account Services Specialist Relationship Specialty Start Date End Date Fabian Anderson MD [address] [address] PCP - General Internal Medicine 08/03/24 Jackie Neal MD [address] [place] [address] 01/05/22
--- OUTSIDE RECORDS SUMMARY | 2024-09-25 18:52 | XMS_ITS | Continuity of Care Document ---
Author Organization [facility] Address [address] [place] [address] Phone Care Team Providers Care Stone And Concrete Washer Name Role Phone Lucas PT,MPT,ATC, Chava Unavailable Unavai lable Procedures Procedure Date Therapeutic Activities Therapeutic Activities PT Evaluation Moderate Complexity Therapeutic Activities Neuromuscular Re-Ed Advance Directives Directive Yes / No Effective Date File Name No Information Encounters Encounter Description Practice Location Reason(s) For Visit Diagnoses Date Provider Providers Copied on Encounter [facility], [address], [place], [place], [id number], tel:[phone] [place] No Information [address] [place], [place], [place]. [facility], [address], [place], [place], [id number], tel:[phone] [place] No Information [address] [place], [place], [place]. Referring Provider: Jackie Neal, [address] [place], [address]. tel:[phone] [facility] [address], [place], [place], [id number], tel:[phone] [place] No Information [address] [place] Referring Provider: Jackie Neal, [address] [place], [address]. tel:[phone] [place] [address], [place], [place], [id number], [place] tel:[phone] [place] No Information 4 [place], [place]. Referring Provider: Jackie Neal, [address], [place], [address]. tel:[phone] Family History Family Member Type Diagnosis Age At Onset No Information Payers Payer name Insurance type Covered republican ID Authorzack lyons(s) [employer]oci[employer] [id number] Social History Type Description Quantity Date Captured [...]
--- OUTSIDE RECORDS SUMMARY | 2024-09-25 18:52 | XMS_ITS | Continuity of Care Document ---
Author Organization [facility] Address [address] [place] [address] Phone Care Team Providers Care [employer]eor[employer] Man Name Role Phone Jimmie RICHARDSON, Donna Unavailable [...] OFFICE/OUTPAT IENT VISIT NEW [facility], [address], [place], [address], [place] tel:[phone] [facility] Pain in left wristPain in right shoulderCarpal tunnel syndrome, bilateral upper limbsCubital tunnel syndrome of both upper extremitiesBody mass index [BMI] 32.0-32.9, adult Apr- 3 Jimmie Thompson. [address], [place], [place], [id number] , [place]. tel:[phone] Family History Family Member Type Diagnosis Age At Onset No Information Payers Payer name Insurance type Covered republican ID Authoriza tion(s) [facility] Choice/Choice Plus [id number] Social History Type Description Quantity Date Captured [...]
--- NOTE | 2024-09-25 19:21 | PC.NURSE ---
Assumed care of patient after receiving bedside report from SAMEER Oneil @ [id number]
[2024-09-25 19:27] VITALS: BP 119/85; PULSE 79; RESP 15; O2SAT 99
[2024-09-25] MEDS: SODIUM CHLORIDE 0.9% IV 1,000 ML 999 ML IV CONT (19:32)
[2024-09-25] MEDS: KETOROLAC 15 MG/ML VIAL (*BKC) IV PUSH (19:32)
[2024-09-25] MEDS: METOCLOPRAMIDE HCL INJ 10 MG/2 ML VIAL IV PUSH (19:40)
[2024-09-25] MEDS: AMOXICILLIN/CLAVULANATE K 875-125 MG TAB 1 TABLET PO (21:20)
== END 2024-09-25 21:25 | disposition home or self-care (01) ==
PROVIDERS: Registered Nurse; Emergency Provider Physician Assistant; PCP Obstetrics & Gynecology
DX: K52.9 Noninfective gastroenteritis and colitis, unspecified (principal); R82.998 Other abnormal findings in urine; J45.909 Unspecified asthma, uncomplicated; E66.9 Obesity, unspecified; Z68.36 Body mass index [BMI] 36.0-36.9, adult; G90.A Postural orthostatic tachycardia syndrome [POTS]; F41.9 Anxiety disorder, unspecified; Z79.899 Other long term (current) drug therapy
CPT/HCPCS: 36415; 74177; 80053; 80307; 81001; 81025; 83690; 84484; 85025; 93005; 96361; 96374; 96375; 99284; A9270; J1885; J2765; J7030; Q9967